=== PATIENT | male | born 1935 | race Caucasian/White ===

== ENCOUNTER 2020-02-07 11:53 | Inpatient (IN) | payer MEDICARE, OTHER ==
[~2020-02-07] VITALS: Ht 162.6 cm; Wt 61.2 kg
[2020-02-07] MEDS ORDERED: IV NS 0.9% 1,000 ML BAG IV ONE (12:30)
[2020-02-07] MEDS ORDERED: NUTR1PAC14 GT (12:30)
[2020-02-07] MEDS ORDERED: ZINC1CAP2 GT (12:30)
[2020-02-07] MEDS ORDERED: ASCO-352 GT (12:30)
[2020-02-07] MEDS ORDERED: BACL10TA GT (12:30)
[2020-02-07] MEDS ORDERED: DONE10TA44 GT (12:31)
[2020-02-07] MEDS ORDERED: BISA10SU11 RC (12:31)
[2020-02-07] MEDS ORDERED: MULT-447 GT (12:31)
[2020-02-07] MEDS ORDERED: MAGN400O6 GT (12:31)
[2020-02-07] MEDS ORDERED: PANT40SU2 GT (12:31)
[2020-02-07] MEDS ORDERED: CLON0.1T GT (12:31)
[2020-02-07] MEDS ORDERED: NUT.237L25 GT (12:31)
[2020-02-07] MEDS ORDERED: SUCR1ORA15 GT (12:31)
[2020-02-07] MEDS ORDERED: ACET650S26 GT ×2 (12:31)
[2020-02-07] MEDS ORDERED: ATOR40TA GT (12:31)
[2020-02-07] MEDS ORDERED: DOXA2TAB GT (12:31)
[2020-02-07] MEDS ORDERED: QUET25TA GT (12:31)
[2020-02-07] MEDS ORDERED: DOCU50LI GT (12:31)
[2020-02-07] MEDS ORDERED: FERR300L GT (12:31)
[2020-02-07] MEDS ORDERED: METO25TA20 GT (12:31)
[2020-02-07] MEDS ORDERED: MELA3TAB41 GT (12:31)
[2020-02-07] MEDS ORDERED: GLUC1KIT SQ (12:31)
[2020-02-07] MEDS ORDERED: HYDR10SY16 GT (12:31)
[2020-02-07] MEDS ORDERED: NA P133E RC (12:31)
[2020-02-07 12:43] LABS: BILIRUBIN,URINE Negative (NEGATIVE); BLOOD, URINE Negative Ery/uL (NEGATIVE); KETONES,URINE Negative (NEGATIVE); LEUKOCYTE ESTERASE ,URINE Negative (NEGATIVE); NITRITE, URINE Negative (NEGATIVE); PH,URINE 8.5 (5.0-8.0); PROTEIN,URINE 30 mg/dl (NEGATIVE); UGLUCOSE Negative (NEGATIVE)
[2020-02-07 12:46] LABS: APPEARANCE,URINE SLIGHTLY HAZY (CLEAR); COLOR,URINE DARK YELLOW (YELLOW)
--- NOTE | 2020-02-07 12:49 | NUR ---
MAUREEN ESTEBAN FROM [facility] FOR WEAKNESS. PT NON VERBAL, OPEN EYES ONLY & WILL MOAN WITH PAINFUL STIMULI. PLACED ON OXYGEN 4L, O2 SAT 95%. PLACED ON COATER SLATE, SR. PT BEEN SEEN & EVAL'D BY DR. OBRIEN. WILL CONT TO MONITOR.
[2020-02-07 12:50] LABS: BASOPHILS # (AUTO) 0.1 /CMM (0.0-0.2); BASOPHILS % (AUTO) 0.5 % (0.0-2.0); EOSINOPHILS % (AUTO) 7.5 % (0.0-6.0); HEMATOCRIT 43 % (39-51); HEMOGLOBIN 13.1 g/dL (13.5-17.5); LYMPHOCYTES # (AUTO) 1.4 /CMM (0.8-4.8); LYMPHOCYTES % (AUTO) 9.7 % (20.0-44.0); MEAN CORPUSCULAR HGB CONC 31 g/dl (31.0-36.0); MEAN CORPUSCULAR VOLUME 99 fL (80-96); MONOCYTES # (AUTO) 0.7 /CMM (0.1-1.30); MONOCYTES % (AUTO) 4.7 % (2.0-12.0); NEUTROPHILS # (AUTO) 11.1 /CMM (1.8-8.9); NEUTROPHILS % (AUTO) 77.6 % (43.0-81.0); PLATELET COUNT (AUTO) 242 /CMM (150-450); WHITE BLOOD COUNT (AUTO) 14.3 K/uL (4.3-11.0)
[2020-02-07 12:55] LABS: BACTERIA,URINE Few /HPF (None Seen); RBC,URINE 0-2 /HPF (0-2); SQUAMOUS EPITHELIAL CELL,UR Few /HPF (None Seen)
[2020-02-07 13:06] LABS: ALANINE AMINOTRANSFERASE 30 U/L (12-78); ALBUMIN 1.6 g/dL (3.4-5.0); ALKALINE PHOSPHATASE 129 U/L (46-116); ASPARTATE AMINOTRANSFERASE 34 U/L (15-37); B-TYPE NATRIURETIC PEPTIDE 1048 PG/ML (0-125); BILIRUBIN,TOTAL 0.4 mg/dL (0.2-1.0); CALCIUM, SERUM 9.4 mg/dL (8.5-10.1); CARBON DIOXIDE 31 mmol/L (21-32); CREATININE 1.2 mg/dL (0.6-1.3); GLUCOSE 293 mg/dL (74-106); POTASSIUM 4.5 mmol/L (3.5-5.1); TOTAL PROTEIN, SERUM 5.9 g/dL (6.4-8.2); UREA NITROGEN, BLOOD 74 mg/dL (7-18)
[2020-02-07 13:10] LABS: CHLORIDE 132 mmol/L (98-107); CREATINE KINASE, TOTAL 761 U/L (39-308); FERRITIN 381 ng/mL (8-388); SODIUM SERUM 168 mmol/L (136-145)
--- NOTE | 2020-02-07 13:12 | NUR ---
PAGED DR. INIGUEZ.
--- NOTE | 2020-02-07 13:13 | NUR ---
CALLED NURSING SUP FOR TELE BED.
--- NOTE | 2020-02-07 13:24 | NUR ---
NURSING SUP GAVE TELE BED 104.
[2020-02-07] MEDS ORDERED: BISACODYL SUPP (10 MG) 10 MG/SUPP.RECT SUPP.RECT RC PRN (13:30)
[2020-02-07] MEDS ORDERED: NA PHOS,M-B/NA PHOS,DI-BA 1 EA ENEMA RC PRN (13:30)
[2020-02-07] MEDS ORDERED: CLONIDINE HCL 0.1 MG TABLET GT PRN (13:30)
[2020-02-07] MEDS ORDERED: TWOCAL HN 1,000 ML LIQUID GT SCH (13:30)
[2020-02-07] MEDS ORDERED: MAGNESIUM HYDROXIDE 30 ML UDC GT PRN (13:30)
--- NOTE | 2020-02-07 13:30 | NUR ---
METAL BONDING CRIB ATTENDANT NOTES RECEIVED PATIENT FROM ER IN STABLE CONDITION. PATIENT NONE VERBAL, CONTRACTED. PATIENT WITH PERIPHERAL IV INTACT PATENT. PATIENT BED BOUND. PATIENT PLACED IN BED. PATIENT ON DROPLET ISOLATION. PATIENT NOTED WITH MULTIPLE WOUNDS. CALL LIGHT WITHIN REACH. BED IN LOW LOCKED POSITION. WILL CONTINUE TO MONITOR. DR. INIGUEZ MADE AWARE OF PATIENTS ARRIVAL. ORDERS PLACED.
--- NOTE | 2020-02-07 13:40 | NUR ---
REPORT GIVEN TO CIERRA SMITH. PT AWAITING TRANS GREGOR TO FLOOR.
--- NOTE | 2020-02-07 13:40 | NUR ---
Narda epperson in [facility] - 02/07/20 at 1342 by GLENNY REPORT GIVEN TO CIERRA ENCISO AWAITING TRANSFER TO [facility].
[2020-02-07] MEDS ORDERED: ENOXAPARIN SODIUM 40 MG/0.4 ML DISP.SYRIN SQ ONE (14:00)
[2020-02-07] MEDS ORDERED: IV D5W 1,000 ML IV PRN (14:00)
[2020-02-07] MEDS ORDERED: DEXTROSE 50%-WATER 50 ML DISP.SYRIN IV PRN (15:00)
[2020-02-07] MEDS ORDERED: ONDANSETRON HCL/PF 4 MG/2 ML VIAL IVP PRN (15:00)
[2020-02-07] MEDS ORDERED: IV D5/ 0.9% NACL 1,000 ML IV PRN (15:30)
[2020-02-07] MEDS ORDERED: ENOXAPARIN SODIUM 30 MG/0.3 ML DISP.SYRIN SQ SCH (16:00)
[2020-02-07] MEDS: CEFTRIAXONE 1 G in IV D5W 50 ML IV SCH ×2 (16:26→16:41)
--- NOTE | 2020-02-07 16:32 | NUR ---
OBTAINED ORDERS FROM DR. GEETHA SCHOFIELD TO CHANGE ADMITTING TO TELEMETRY AND FULL CODE.
[2020-02-07] MEDS ORDERED: FERROUS SULFATE UDC 300 MG/5 ML UDC GT SCH (17:00)
[2020-02-07] MEDS: SUCRALFATE 1 G/10 ML UDC GT SCH (17:25)
[2020-02-07] MEDS: DOCUSATE SODIUM LIQ 100 MG/10 ML UDC GT SCH (17:25)
[2020-02-07] MEDS: ASCORBIC ACID 500 MG TABLET GT SCH (17:26)
[2020-02-07] MEDS: BACLOFEN (10 MG) 10 MG TABLET GT SCH (17:26)
[2020-02-07] MEDS: METOPROLOL TARTRATE 25 MG TABLET GT SCH (17:29)
[2020-02-07 18:06] LABS: BILIRUBIN,DIRECT 0.1 mg/dL (0.0-0.2)
[2020-02-07] MEDS ORDERED: JEVITY 1.2 CAL 1,000 ML BOTTLE GT PRN ×2 (18:30→18:58)
--- NOTE | 2020-02-07 19:03 | NUR ---
RESP THER NOTES PATIENT IN BED RESTING. NO ACUTE CHANGES NOTED DURING SHIFT. ALL MEDICATIONS ADMINISTERED. ALL NEEDS . WILL ENDORSE CARE TO PM SHIFT.
[2020-02-07] MEDS: BLOOD SUGAR DIAGNOSTIC 1 EACH STRIP IN SCH (19:22)
[2020-02-07] MEDS: INSULIN REGULAR, HUMAN 100 UNIT/ML 3 ML VIAL SQ PRN (19:28)
[2020-02-07 20:00] VITALS: BP 107/66
[2020-02-07] MEDS ORDERED: Medication Not On Formulary EA (Melatonin 6 MG) GT SCH (22:00)
[2020-02-07] MEDS: QUETIAPINE FUMARATE 25 MG TABLET GT SCH (23:12)
[2020-02-07] MEDS: ATORVASTATIN 40 MG TABLET GT SCH (23:13)
[2020-02-08] VITALS (7 sets, daily range): BP systolic 91–130; BP diastolic 34–74
[2020-02-08] MEDS: INSULIN REGULAR, HUMAN 100 UNIT/ML 3 ML VIAL SQ PRN ×4 (00:48→17:35)
[2020-02-08] MEDS: BLOOD SUGAR DIAGNOSTIC 1 EACH STRIP IN SCH ×4 (00:59→17:34)
--- NOTE | 2020-02-08 06:02 | NUR ---
KYE/RN PATIENT APPEAR SLEEPING, COMFORTABLE, NO DISTRESS NOTED, HOB ELEVATED, GTUBE FEEDING INFUSING, SLEPT WELL THE WHOLE SHIFT, ALL NEEDS ATTENDED AT THIS TIME, WILL CONTINUE TO MONITOR.
[2020-02-08 07:32] LABS: BASOPHILS # (AUTO) 0.1 /CMM (0.0-0.2); BASOPHILS % (AUTO) 0.4 % (0.0-2.0); EOSINOPHILS % (AUTO) 3.2 % (0.0-6.0); HEMATOCRIT 38 % (39-51); HEMOGLOBIN 11.6 g/dL (13.5-17.5); LYMPHOCYTES # (AUTO) 1.8 /CMM (0.8-4.8); LYMPHOCYTES % (AUTO) 10.8 % (20.0-44.0); MEAN CORPUSCULAR HGB CONC 31 g/dl (31.0-36.0); MEAN CORPUSCULAR VOLUME 101 fL (80-96); MONOCYTES # (AUTO) 0.8 /CMM (0.1-1.30); MONOCYTES % (AUTO) 4.7 % (2.0-12.0); NEUTROPHILS # (AUTO) 13.4 /CMM (1.8-8.9); NEUTROPHILS % (AUTO) 80.9 % (43.0-81.0); PLATELET COUNT (AUTO) 223 /CMM (150-450); RED BLOOD CELL COUNT(AUTO) 3.74 MIL/uL (4.5-6.0); WHITE BLOOD COUNT (AUTO) 16.6 K/uL (4.3-11.0)
--- NOTE | 2020-02-08 07:45 | NUR ---
OXYACETYLENE TORCH OPERATOR NOTES RECEIVED PATIENT A/OX 0 NONVERBAL, UNABLE TO OPEN EYES. WITH LOW BLOOD PRESSURE. PATIENT ON AMIODARONE DRIP 16.6. PER MORNING SHIFT NURSE MARIA M, AMIODARONE STARTED AT 1547. AMIODARONE WAS NOT AVAILABLE IN [place]. NO GT SIDE RESIDUAL NOTED. Addendum: 02/09/20 at 0232 by MARINA BARAKAT RN WRONG TIME
[2020-02-08 07:49] LABS: CALCIUM, SERUM 8.5 mg/dL (8.5-10.1); CREATININE 1.3 mg/dL (0.6-1.3); POTASSIUM 3.9 mmol/L (3.5-5.1)
[2020-02-08] MEDS ORDERED: AMIODARONE 900 MG in IV D5W 500 ML IV PRN (08:00)
[2020-02-08] MEDS ORDERED: AMIODARONE 150 MG in IV D5W 100 ML IV ONE (08:00)
--- NOTE | 2020-02-08 08:00 | NUR ---
RN OPENING NOTE: Patient received in bed. Awake and responsive to touch and pain. On cont. o2 via nc @ 4lpm with saturation of 92% noted. Isolation in place to R/O COVID. Tele monitor showing Uncontrolled A. Fib in the 130s with orders to start Amiodaraone drip. Awaiting for medication to be delivered. No pain noted on pain. Reyes catheter draiing yellow willie urine. Gtube patent and in place with current feeding being tolerated. IV site clean, dry, patent and intact with infusion of D5NS infusing at 75mls/hr and being tolerated well. Call light in reach. Bed locked, low and at semi-marcelo's position. Side rails up x3. Safety ensured and observed. Will continue to monitor.
[2020-02-08] MEDS: ENOXAPARIN SODIUM 40 MG/0.4 ML DISP.SYRIN SQ SCH (09:00)
[2020-02-08] MEDS ORDERED: AMIODARONE 450 MG in IV D5W 250 ML IV PRN (09:00)
[2020-02-08] MEDS: ACETAMINOPHEN 650 MG/20.3 ML UDC GT SCH (09:34)
[2020-02-08] MEDS: ZINC SULFATE 220 MG CAPSULE GT SCH (09:35)
[2020-02-08] MEDS: BACLOFEN (10 MG) 10 MG TABLET GT SCH ×2 (09:35→17:33)
[2020-02-08] MEDS: SUCRALFATE 1 G/10 ML UDC GT SCH ×2 (09:35→17:32)
[2020-02-08] MEDS: PANTOPRAZOLE 40 MG VIAL IV SCH (09:35)
[2020-02-08] MEDS: METOPROLOL TARTRATE 25 MG TABLET GT SCH ×2 (09:36→17:34)
--- NOTE | 2020-02-08 09:47 | NUR ---
RN NOTE: AMIODARONE DRIP STARTED AT 33.3MLS/HR BUT UNABLE TO ADMINISTER IN THE EMAR. PHARMACY INFORMED OF THE SITUATION AND THEY ARE AWARE.
[2020-02-08] MEDS: IV 1/2NS 1000 ML 1,000 ML IV PRN ×2 (10:44→23:00)
[2020-02-08 10:51] LABS: MAGNESIUM 2.6 mg/dL (1.8-2.4); THYROID STIMULATING HORMONE 3.23 uIU/mL (0.358-3.74)
[2020-02-08 11:54] LABS: ABG BASE EXCESS -1.2 mmol/L; ABG OXYGEN SATURATION 97.3 % (92.0-98.5); ABG PCO2 27.6 mmHg (35.0-45.0); ABG PH 7.498 (7.350-7.450); ABG PO2 109.5 mmHg (75.0-100.0); AaDO2 115.2 mmHg; COHb 0.3 % (0.5-1.5); MetHb 0.4 % (0.0-1.5); O2Hb 96.6 % (94.0-97.0); SITE, ABG Right Radial
--- NOTE | 2020-02-08 12:30 | NUR ---
RN note: Anthony Truong DNP was informed earlier on shift about patient Blood glucose result via blood draw of 437 and is aware. IV infusion changed to D51/2NS @75mls/hr. Amiodarone drip currently running at 33.3mls/hr for 6hr and the rate to be changed on 1547 to 16.6mls/hr. Heart rate currently at 88bpm with sinus rhythm noted on monitor and Dr. Schwartz is aware. GTF order changed to Glucerna 1.2 @60mls/hr. Report given to SARAH Sahu for BATOOL.
[2020-02-08 13:04] LABS: CALCIUM, SERUM 8.5 mg/dL (8.5-10.1); CARBON DIOXIDE 25 mmol/L (21-32); CREATININE 1.2 mg/dL (0.6-1.3); POTASSIUM 3.5 mmol/L (3.5-5.1); UREA NITROGEN, BLOOD 63 mg/dL (7-18)
[2020-02-08 13:08] LABS: SODIUM SERUM 167 mmol/L (136-145)
[2020-02-08 13:09] LABS: CHLORIDE 130 mmol/L (98-107); GLUCOSE 411 mg/dL (74-106)
[2020-02-08] MEDS: CEFEPIME 2 GM in IV D5W 100 ML IV SCH (13:25)
--- NOTE | 2020-02-08 15:09 | NUR ---
Patient noticed lactic acid 2.9 and BS 437 in this morning from Lab. Informed Dr. Yusuf
[2020-02-08] MEDS: DOCUSATE SODIUM LIQ 100 MG/10 ML UDC GT SCH (17:32)
[2020-02-08] MEDS: ASCORBIC ACID 500 MG TABLET GT SCH (17:32)
[2020-02-08] MEDS: GLUCERNA 1.2 1,000 ML BOTTLE GT PRN (17:36)
--- NOTE | 2020-02-08 18:30 | NUR ---
Tele/RN Closing note Patient in bed comfortably, no c/o pain or discomfort at this time. Pt is on Amiodarone drip, decreased drip rate 16.6 ml/hr from 33.3ml/hr and keep stable HR. Oxygen at 10LPM with simple mask, O2sat 93-95%, skin is war to touch, kept clean/dry, intact IV site, provided skin care. Temperature 98.3. Keep low bed position with locked wheel and elevated head of bed for secure airway, call light within reach, will endorse fast food shift lead.
--- NOTE | 2020-02-08 19:45 | NUR ---
CUSTOMER CARE ASSISTANT NOTES RECEIVED PATIENT A/OX 0 NONVERBAL, UNABLE TO OPEN EYES. WITH LOW BLOOD PRESSURE. PATIENT ON AMIODARONE DRIP 16.6. PER MORNING SHIFT NURSE MARIA M, AMIODARONE STARTED AT 1547. AMIODARONE WAS NOT AVAILABLE IN [place]. NO GT SIDE RESIDUAL NOTED.
--- NOTE | 2020-02-08 20:37 | NUR ---
MICROSOFT DEVELOPER NOTES PATIENT BP 113/[address] AVILA ABOUT THE FINDINGS AND NO ORDERS GIVEN. ALSO INFORMED ABOUT THE CANCELLED LAB AND SHE ORDERED BMP IN THE MORNING.
[2020-02-08] MEDS ORDERED: AMIODARONE 150 MG/3 ML VIAL IV ONE ×2 (21:23→21:26)
[2020-02-08] MEDS: ATORVASTATIN 40 MG TABLET GT SCH (22:15)
[2020-02-08] MEDS: QUETIAPINE FUMARATE 25 MG TABLET GT SCH (22:15)
--- NOTE | 2020-02-08 22:27 | NUR ---
SYSTEMS PROGRAMMER NOTES AMIODARONE REMOVED 1 VIAL FROM KYE AND OTHERS WERE NOT AVAILABLE. 2 MORE VIAL OBTAINED FROM ICU BY ED CHARGE NURSE. MIXED 3 VIALS TO HAVE 450MG IN 250 D5.
[2020-02-09] VITALS: BP 93/36
[2020-02-09] MEDS: BLOOD SUGAR DIAGNOSTIC 1 EACH STRIP IN SCH ×4 (00:10→17:05)
[2020-02-09] MEDS: INSULIN REGULAR, HUMAN 100 UNIT/ML 3 ML VIAL SQ PRN ×5 (00:21→23:36)
[2020-02-09 04:00] VITALS: BP 96/34
[2020-02-09 07:21] LABS: BASOPHILS % (AUTO) 0.2 % (0.0-2.0); EOSINOPHILS % (AUTO) 0.6 % (0.0-6.0); HEMATOCRIT 35 % (39-51); HEMOGLOBIN 10.6 g/dL (13.5-17.5); LYMPHOCYTES # (AUTO) 1.3 /CMM (0.8-4.8); LYMPHOCYTES % (AUTO) 9.7 % (20.0-44.0); MEAN CORPUSCULAR HGB CONC 31 g/dl (31.0-36.0); MEAN CORPUSCULAR VOLUME 100 fL (80-96); MONOCYTES # (AUTO) 0.5 /CMM (0.1-1.30); MONOCYTES % (AUTO) 3.3 % (2.0-12.0); NEUTROPHILS # (AUTO) 11.9 /CMM (1.8-8.9); NEUTROPHILS % (AUTO) 86.2 % (43.0-81.0); PLATELET COUNT (AUTO) 180 /CMM (150-450); RED BLOOD CELL COUNT(AUTO) 3.45 MIL/uL (4.5-6.0); WHITE BLOOD COUNT (AUTO) 13.8 K/uL (4.3-11.0)
--- NOTE | 2020-02-09 07:37 | NUR ---
DENTAL ASSOCIATE NOTES PATIENT IN BED COMFORTABLE, NO SOB OR DISCOMFORT NOTED, ALL NEEDS ATTENDED. NO RESIDUAL NOTED FROM NG TUBE. REPORT GIVEN TO TOP COLLAR MAKER NURSE.
[2020-02-09 08:00] VITALS: BP 128/46
--- NOTE | 2020-02-09 08:00 | NUR ---
RN NOTES RECEIVED PATIENT IN THE BED ISOLATION, NONVERBAL, FACE MASK 10L, NO SOB NOTES; ABG DONE,TELE SR-66 PVC GETTING AMIODARONE 16.6 ML/HR ON RIGHT AC AREA INTACT. PER GASKET FORMER KEEP MASK 10 AT THIS TIME, LABS RETAKEN, ADMINISTERED SCHEDULED MEDICATION VIA GT INTACT, PATIENT GETTING GLUCERNA GTF 60 ML/HR INTACT,RESIDUAL, AND PLACEMENT CHECKED, INFUSING 1/2 NS AT RIGHT AC AREA 75 ML/HR, F/C DRAINING LIGHT YELLOW OUTPUT, PATENT HAS SKIN TEAL SACRAL, AND SCROTAL AREA APPLIED Z-GUARD, AND COVERED WITH MEPILEX, SKIN IS DRY, ALSO RIGHT HIP APPLIED MEDIPLEX, ASSIST TURN AND REPOSITION Q 2 HR, PATIENT TOTAL CARE. PATIENT HAS EDEMA BILATERAL UPPER ARMS, AND RIGHT LOWER LEG, LEFT LEFT LEG AKA. KEEP HOB ELEVATED FOR ASPIRATION PRECAUTION, V/S STABLE. CONTINUED MONITORING.
[2020-02-09 09:01] LABS: BILIRUBIN,TOTAL 0.5 mg/dL (0.2-1.0); CALCIUM, SERUM 7.8 mg/dL (8.5-10.1); CREATININE 1.2 mg/dL (0.6-1.3); MAGNESIUM 2.3 mg/dL (1.8-2.4); PHOSPHORUS 4.2 mg/dL (2.5-4.9); POTASSIUM 4.1 mmol/L (3.5-5.1)
[2020-02-09 09:05] LABS: ALBUMIN 1.2 g/dL (3.4-5.0)
--- NOTE | 2020-02-09 09:33 | NUR ---
lactic acid of 3.7 left message to to waiting for retuning call back was 4.4 yesterday
[2020-02-09 09:34] LABS: ABG BASE EXCESS -2.9 mmol/L; ABG OXYGEN SATURATION 96.4 % (92.0-98.5); ABG PCO2 28.8 mmHg (35.0-45.0); ABG PH 7.459 (7.350-7.450); AaDO2 232.1 mmHg; COHb 0.3 % (0.5-1.5); MetHb 0.1 % (0.0-1.5); SITE, ABG Right Radial; VENT MODE, BG SM 10L
[2020-02-09] MEDS: ZINC SULFATE 220 MG CAPSULE GT SCH (09:38)
[2020-02-09] MEDS: SUCRALFATE 1 G/10 ML UDC GT SCH ×2 (09:38→16:58)
[2020-02-09] MEDS: PANTOPRAZOLE 40 MG VIAL IV SCH (09:38)
[2020-02-09] MEDS: ACETAMINOPHEN 650 MG/20.3 ML UDC GT SCH (09:38)
[2020-02-09] MEDS: BACLOFEN (10 MG) 10 MG TABLET GT SCH ×2 (09:39→16:58)
[2020-02-09] MEDS: METOPROLOL TARTRATE 25 MG TABLET GT SCH ×2 (09:39→16:59)
[2020-02-09] MEDS: ENOXAPARIN SODIUM 40 MG/0.4 ML DISP.SYRIN SQ SCH (09:40)
--- NOTE | 2020-02-09 09:42 | NUR ---
G RESUTS results given to Anthony Odonnell , Stated that OK
[2020-02-09] MEDS ORDERED: IV NS 0.9% 500 ML IV ONE (10:00)
[2020-02-09] MEDS: methylPREDNISolone SOD SUCC 125 MG/2ML VIAL IV SCH (10:08)
--- NOTE | 2020-02-09 10:09 | NUR ---
RN NOTES ADMINISTERING NS 500 ML/HR BOLUS.
[2020-02-09 12:00] VITALS: BP_SYST 129; BP_DIAS 44; BP_DIAS 46
[2020-02-09] MEDS: CEFEPIME 2 GM in IV D5W 100 ML IV SCH (12:20)
--- NOTE | 2020-02-09 12:35 | NUR ---
rn notes bs-372 mg/dl coverage given, patient Glucerna 1.2 ml/hr intact, keep hob elevated for aspiration precaution, ct wo contrast done, assist patient turn and reposition q 2 hr, call light within to reach, infusing maxipime 100 ml/hr intact on right ac area intact. continued monitoring.
--- NOTE | 2020-02-09 13:46 | NUR ---
LACTIC ACID 2.5 was notified no further orders obtained
[2020-02-09 16:00] VITALS: BP 108/44
[2020-02-09] MEDS: APIXABAN 5 MG TABLET PO SCH (17:01)
[2020-02-09] MEDS: ASCORBIC ACID 500 MG TABLET GT SCH (17:05)
[2020-02-09] MEDS: DOCUSATE SODIUM LIQ 100 MG/10 ML UDC GT SCH (17:05)
[2020-02-09] MEDS: IV 1/2NS 1000 ML 1,000 ML IV PRN (17:17)
[2020-02-09] MEDS: GLUCERNA 1.2 1,000 ML BOTTLE GT PRN (17:17)
[2020-02-09 18:26] LABS: CALCIUM, SERUM 8.1 mg/dL (8.5-10.1); CREATININE 1.2 mg/dL (0.6-1.3); POTASSIUM 3.9 mmol/L (3.5-5.1)
--- NOTE | 2020-02-09 18:30 | NUR ---
RN NOTES BS-397 MG/DL COVERAGE GIVEN, INFUSING 1/2 NS AT 75 ML/HR ON RIGHT FA INTACT, PATIENT TOLERATED GLUCERNA WELL, KEEP HOB ELEVATED FOR ASPIRATION PRECAUTION, ASSISTTURN AND REPOSITION 2 HR. HELD BP MEDICATION BP 108/44, P-68. ADMINISTERED SCHEDULED MEDICATION VIA GTT. ASSIST TURN AND REPOSITION Q 2 HR. DONIS CATHETER DRAINING LIGHT YELLOW OUTPUT. CALL LIGHT WITHIN TO REACH. ENDORSED ONCOMING NURSE FOLLOW PLAN OF CARE.
--- NOTE | 2020-02-09 18:39 | NUR ---
notified to CAT TENDER RE; MRSA Nares positive and orders obtained and will follows orders
[2020-02-09 20:00] VITALS: BP 114/46
[2020-02-09] MEDS: MUPIROCIN OINT 2% 22 GM TUBE SCH (20:41)
[2020-02-09] MEDS: AMIODARONE HCL 200 MG TABLET PO SCH (20:43)
[2020-02-09] MEDS: ATORVASTATIN 40 MG TABLET GT SCH (21:01)
[2020-02-09] MEDS: QUETIAPINE FUMARATE 25 MG TABLET GT SCH (21:01)
[2020-02-10] VITALS: BP 124/54
[2020-02-10] MEDS: BLOOD SUGAR DIAGNOSTIC 1 EACH STRIP IN SCH ×4 (00:52→18:33)
[2020-02-10 04:00] VITALS: BP 123/41
[2020-02-10] MEDS ORDERED: DEXTROSE 50%-WATER 50 ML DISP.SYRIN IV PRN (04:30)
[2020-02-10] MEDS: INSULIN REGULAR, HUMAN 100 UNIT/ML 3 ML VIAL SQ PRN ×3 (05:19→18:35)
[2020-02-10 06:17] LABS: BASOPHILS # (AUTO) 0.1 /CMM (0.0-0.2); BASOPHILS % (AUTO) 0.4 % (0.0-2.0); HEMATOCRIT 31 % (39-51); HEMOGLOBIN 9.4 g/dL (13.5-17.5); LYMPHOCYTES # (AUTO) 0.6 /CMM (0.8-4.8); MEAN CORPUSCULAR HGB CONC 31 g/dl (31.0-36.0); MEAN CORPUSCULAR VOLUME 100 fL (80-96); MONOCYTES # (AUTO) 0.4 /CMM (0.1-1.30); MONOCYTES % (AUTO) 2.8 % (2.0-12.0); NEUTROPHILS # (AUTO) 13.8 /CMM (1.8-8.9); NEUTROPHILS % (AUTO) 92.8 % (43.0-81.0); PLATELET COUNT (AUTO) 157 /CMM (150-450); RED BLOOD CELL COUNT(AUTO) 3.05 MIL/uL (4.5-6.0); WHITE BLOOD COUNT (AUTO) 14.8 K/uL (4.3-11.0)
[2020-02-10 06:40] LABS: CALCIUM, SERUM 7.6 mg/dL (8.5-10.1); POTASSIUM 3.9 mmol/L (3.5-5.1)
--- NOTE | 2020-02-10 06:52 | NUR ---
RN NOTE RECEIVED ALERT FOR CRITICAL LAB VALUES: SODIUM 158. CHLORIDE 126. AND GLUCOSE 411. DR. GALVEZ MADE AWARE. MD WILL ENTER NEW ORDERS.
--- NOTE | 2020-02-10 07:45 | NUR ---
WEDGER OPENING NOTE Received patient asleep in bed HOB elevated no signs of distress. Appears calm and relaxed. On simple mask 10L tolerating well. Patient is non verbal Tele reading SR 65 no sign of pain or discomfort. On FC draining clear yellow urine. Noted with L AKA stump dressing intact. Pt has GT running Glucerna 1.2 @ 60ml/hr. Has L wrist 24# peripheral IV flushed well. Safety measures reinforced. Call light within reach. Bed locked and on lowest position. Siderails up x2. Will cont to monitor.
[2020-02-10 08:00] VITALS: BP 133/72
[2020-02-10 08:29] LABS: CREATININE, URINE 54.9 MG/DL (30.0-125.0); URINE TOTAL PROTEIN 80.6 mg/dL (0-11.9)
[2020-02-10 08:49] LABS: APPEARANCE,URINE CLEAR (CLEAR); BILIRUBIN,URINE NEGATIVE (NEGATIVE); BLOOD, URINE MODERATE Ery/uL (NEGATIVE); COLOR,URINE YELLOW (YELLOW); KETONES,URINE NEGATIVE (NEGATIVE); LEUKOCYTE ESTERASE ,URINE NEGATIVE (NEGATIVE); NITRITE, URINE NEGATIVE (NEGATIVE); PROTEIN,URINE 30 mg/dl (NEGATIVE); UGLUCOSE >=1000 mg/dL (NEGATIVE); UROBILINOGEN,URINE 0.2 EU/dL (0.2)
[2020-02-10] MEDS: ACETAMINOPHEN 650 MG/20.3 ML UDC GT SCH (08:56)
[2020-02-10] MEDS: PANTOPRAZOLE 40 MG VIAL IV SCH (08:56)
[2020-02-10] MEDS: SUCRALFATE 1 G/10 ML UDC GT SCH ×2 (08:56→16:56)
[2020-02-10] MEDS: AMIODARONE HCL 200 MG TABLET PO SCH ×2 (08:56→21:25)
[2020-02-10] MEDS: methylPREDNISolone SOD SUCC 125 MG/2ML VIAL IV SCH (08:56)
[2020-02-10] MEDS: ZINC SULFATE 220 MG CAPSULE GT SCH (08:57)
[2020-02-10] MEDS: METOPROLOL TARTRATE 25 MG TABLET GT SCH ×2 (08:57→16:58)
[2020-02-10] MEDS: BACLOFEN (10 MG) 10 MG TABLET GT SCH ×2 (08:58→16:58)
[2020-02-10] MEDS: APIXABAN 5 MG TABLET PO SCH ×2 (08:58→16:59)
[2020-02-10] MEDS: LINAGLIPTIN 5 MG TABLET PO SCH (08:58)
[2020-02-10] MEDS: MUPIROCIN OINT 2% 22 GM TUBE SCH ×2 (08:59→21:26)
[2020-02-10 09:13] LABS: ABG BASE EXCESS -1.2 mmol/L; ABG OXYGEN SATURATION 99.3 % (92.0-98.5); ABG PCO2 29.7 mmHg (35.0-45.0); ABG PH 7.479 (7.350-7.450); ABG PO2 195.1 mmHg (75.0-100.0); COHb 0.3 % (0.5-1.5); SITE, ABG Right Radial; VENT MODE, BG SM 10L
[2020-02-10 09:33] LABS: BACTERIA,URINE Rare /HPF (None Seen); SQUAMOUS EPITHELIAL CELL,UR Few /HPF (None Seen)
[2020-02-10 09:34] LABS: CALCIUM OXALATE CRYSTALS,UR Rare /HPF (None Seen)
--- NOTE | 2020-02-10 09:58 | NUR ---
NITRIC ACID CONCENTRATOR OPERATOR NOTE Received ABG results. Dr. Wesley ordered to decrease oxygen from 10L to 6L. Noted and carried out.
[2020-02-10 11:24] LABS: EOSINOPHIL,URINE None Seen
[2020-02-10 12:00] VITALS: BP 128/76
[2020-02-10] MEDS: CEFEPIME 2 GM in IV D5W 100 ML IV SCH (12:14)
[2020-02-10 16:00] VITALS: BP 124/80
--- NOTE | 2020-02-10 17:00 | NUR ---
AUTO SERVICE MECHANIC NOTE held Lopressor HR 57.
[2020-02-10] MEDS: ASCORBIC ACID 500 MG TABLET GT SCH (17:03)
[2020-02-10] MEDS: DOCUSATE SODIUM LIQ 100 MG/10 ML UDC GT SCH (17:03)
--- NOTE | 2020-02-10 18:53 | NUR ---
REEL SYSTEM OPERATOR CLOSING NOTE Pt in bed asleep appears calm and relaxed. On NC 6L o2 sat at 98% tolerating well. All due meds given. Vital signs within normal limits. No signs of pain or discomfort. Kept patient clean and dry. Safety measures reinforced. Call light within reach. Bed locked and on lowest position. Siderails up x2. Will endorse to shift leader nurse for phuc..
[2020-02-10 20:00] VITALS: BP 125/41
[2020-02-10] MEDS: ATORVASTATIN 40 MG TABLET GT SCH (21:24)
[2020-02-10] MEDS: QUETIAPINE FUMARATE 25 MG TABLET GT SCH (21:24)
[2020-02-11] VITALS: BP 146/69
[2020-02-11] MEDS: BLOOD SUGAR DIAGNOSTIC 1 EACH STRIP IN SCH ×5 (00:40→23:36)
[2020-02-11] MEDS: INSULIN REGULAR, HUMAN 100 UNIT/ML 3 ML VIAL SQ PRN ×5 (00:41→23:38)
[2020-02-11 04:00] VITALS: BP 138/69
[2020-02-11 06:23] LABS: URINE SODIUM, RANDOM 10 mmol/l (40-220)
--- NOTE | 2020-02-11 06:50 | NUR ---
PEDIATRIC REGISTERED NURSE CLOSING NOTE, patient asleep at this time, On NC 6L at he beginning of the shift, around 2300 patient became desaturated, placed patient on non rebreather mask and after that patient with 100% o2 sat level on NRM, rachel aware, cont on Tele monitor nsr with hr 70s during the night, Safety measures reinforced, Call light within reach, Bed locked and lowest position, Siderails up x2, will endorse continuity of care to oncoming nurse.
[2020-02-11 07:26] LABS: CALCIUM, SERUM 8.1 mg/dL (8.5-10.1); CREATININE 1.1 mg/dL (0.6-1.3); MAGNESIUM 2.7 mg/dL (1.8-2.4); PHOSPHORUS 3.5 mg/dL (2.5-4.9); POTASSIUM 4.2 mmol/L (3.5-5.1)
[2020-02-11 08:00] VITALS: BP_SYST 137; BP_SYST 138; BP_DIAS 40; BP_DIAS 69
--- NOTE | 2020-02-11 08:00 | NUR ---
telephone sales agent note received patient in bed , wake with confusion, on nonrebreather mask at thins time , sat 100% ,on tele monitor hr 78 , on g tube feeding as ordered, no residual noted at this time , keep hob elevated at all time , on tele hr 80 noted both arms with edema, keep elevated at all time , bed in lowest and locked position, will cont to monitor
[2020-02-11] MEDS: AMIODARONE HCL 200 MG TABLET PO SCH ×2 (09:15→21:26)
[2020-02-11] MEDS: LINAGLIPTIN 5 MG TABLET PO SCH (09:15)
[2020-02-11] MEDS: APIXABAN 5 MG TABLET PO SCH ×2 (09:16→16:25)
[2020-02-11] MEDS: BACLOFEN (10 MG) 10 MG TABLET GT SCH ×2 (09:16→16:25)
[2020-02-11] MEDS: ACETAMINOPHEN 650 MG/20.3 ML UDC GT SCH (09:16)
[2020-02-11] MEDS: ZINC SULFATE 220 MG CAPSULE GT SCH (09:16)
[2020-02-11] MEDS: methylPREDNISolone SOD SUCC 125 MG/2ML VIAL IV SCH (09:16)
[2020-02-11] MEDS: PANTOPRAZOLE 40 MG VIAL IV SCH (09:17)
[2020-02-11] MEDS: SUCRALFATE 1 G/10 ML UDC GT SCH ×2 (09:17→16:25)
[2020-02-11] MEDS: METOPROLOL TARTRATE 25 MG TABLET GT SCH ×2 (09:19→16:25)
[2020-02-11] MEDS: MUPIROCIN OINT 2% 22 GM TUBE SCH ×2 (09:20→21:43)
--- NOTE | 2020-02-11 09:24 | NUR ---
WOUND CARE CONSULT: REVIEWED CHART, NURSING DOCUMENTATION AND PHOTOS WHICH SHOW MULTIPLE WOUNDS PRESENT ON ADMISSION. RECOMMEND SURGICAL CONSULT. DR CONNOR NOTIFIED OF CONSULT REQUEST. RECOMMENDATIONS MADE FOR SKIN PROTECTION. DISCUSSED WITH NURSING STAFF. FIRST STEP LOW AIRLOSS MATTRESS ORDERED. WILL SEE PRN. IN AGREEMENT WITH PLAN OF CARE.
[2020-02-11] MEDS: Z GUARD REMEDY 2 OZ OINT TP SCH (09:31)
--- NOTE | 2020-02-11 09:32 | NUR ---
telemarketing manager note spoke with dr hassan and dr bates notified that danitza Jaquez ordered free water 300 ml via g tube , and dr hassan ordered abg on 6l nc will f\u aware that both arms swollen
[2020-02-11 10:03] LABS: OSMOLALITY,URINE 875 mOS/kg (340-1090)
[2020-02-11 10:25] LABS: ABG BASE EXCESS -1.7 mmol/L; ABG OXYGEN SATURATION 99.6 % (92.0-98.5); ABG PH 7.467 (7.350-7.450); ABG PO2 285.8 mmHg (75.0-100.0); AaDO2 325.2 mmHg; COHb 0.3 % (0.5-1.5); MetHb 0.1 % (0.0-1.5); O2Hb 99.2 % (94.0-97.0); SITE, ABG Left Brachial; VENT MODE, BG NON REBREATHER 15L
[2020-02-11 10:30] LABS: THYROID STIMULATING HORMONE 7.441 uIU/mL (0.358-3.74); URIC ACID 4.9 mg/dL (2.6-7.2)
--- NOTE | 2020-02-11 10:51 | NUR ---
MICROPHONE OPERATOR NOTE ABG DONE DR JOHNSON AWARE OF RESULT OK TO PLACE ON 6L NC, WILL MONITOR FOR SATURATION Addendum: 02/11/20 at 1054 by VI MEDINA RN SAT 97% AT THIS TIME
--- NOTE | 2020-02-11 11:18 | NUR ---
LITERATURE TEACHER NOTE CHEST XRAY DONE ,WILL MONITOR
[2020-02-11 12:00] VITALS: BP 137/49
[2020-02-11] MEDS: CEFEPIME 2 GM in IV D5W 100 ML IV SCH (12:36)
[2020-02-11] MEDS: GLUCERNA 1.2 1,000 ML BOTTLE GT PRN (12:36)
--- NOTE | 2020-02-11 13:14 | NUR ---
MEMBER SERVICES COORDINATOR NOTE PER DR INIGUEZ OK TO INSERT MID LINE ALSO NOTIFIED MARIBEL G TUBE SITE SEVERE LEAKING OK TO HOLD G TUBE FEEDING AT THIS TIME
--- NOTE | 2020-02-11 14:29 | NUR ---
porcelain turnerdemetrius michelle will be provided Addendum: 02/11/20 at 1547 by VI MEDINA RN called to central supply ,rubina gilbert not [employer] yet, will be delivered soon
[2020-02-11 16:00] VITALS: BP 142/54
--- NOTE | 2020-02-11 16:06 | NUR ---
telemetry tech note picc line nurse at bedside rt upper arm midline inserted nahum 18 ,will monitor
[2020-02-11] MEDS: Z GUARD REMEDY 2 OZ OINT TP PRN (16:59)
[2020-02-11] MEDS: DOCUSATE SODIUM LIQ 100 MG/10 ML UDC GT SCH (17:19)
[2020-02-11] MEDS: ASCORBIC ACID 500 MG TABLET GT SCH (17:19)
--- NOTE | 2020-02-11 19:03 | NUR ---
EQUAL OPPORTUNITY ASSISTANT RN NOTES PT IS RESTING IN BED COMFORTABLE. NOT IN DISTRESS. WILL CONTINUE TO MONITOR. PT WILL ENDORSIVE CARE TO NIGHTSHIFTS FOR BATOOL.
--- NOTE | 2020-02-11 19:48 | NUR ---
MS RN NOTES PATIENT RECEIVED RESTING IN BED, NON VERBAL. ON 6L OF O2 WITH BREATHING EVEN AND UNLABORED, NO SOB NOTED. NO SIGNS OF ACUTE DISTRESS, NO COMPLAINTS OF PAIN OR DISCOMFORT- NO FACIAL GRIMACING NOTED. DONIS CATHETER NOTED AND IN PLACE. GTUBE FEEDING ON HOLD DUE TO LEAKING. IV ON LFA #20 S/L AND TK MIDLINE #18. SAFETY PRECAUTIONS IN PLACE WITH BED IN LOWEST POSITION, CALL LIGHT WITHIN REACH, BREAKS ON, SIDE RAILS UP. WILL CONTINUE TO MONITOR THROUGHOUT THE SHIFT.
[2020-02-11 20:00] VITALS: BP 133/44
[2020-02-11] MEDS: ATORVASTATIN 40 MG TABLET GT SCH (21:26)
[2020-02-11] MEDS: QUETIAPINE FUMARATE 25 MG TABLET GT SCH (21:26)
[2020-02-11] MEDS: CLOTRIMAZOLE 1% 15 GM TUBE TP SCH (22:00)
[2020-02-11] MEDS: DAKINS QUARTER STRENGTH (0.125%) 480 ML BOTTLE TOP SCH (22:00)
--- NOTE | 2020-02-11 22:40 | NUR ---
FELLING MACHINE OPERATOR NOTES DID ADMINISTER WOUND CARE MEDICATIONS LOTRIMIN AND ALONDRA, NO AT PATIENT BEDSIDE OR CASETTE. WILL FOLLOW UP WITH PHARMACY IN AM.
[2020-02-12] VITALS: BP 116/45
[2020-02-12 04:00] VITALS: BP 112/39
[2020-02-12] MEDS: BLOOD SUGAR DIAGNOSTIC 1 EACH STRIP IN SCH ×3 (05:38→17:38)
[2020-02-12] MEDS: INSULIN REGULAR, HUMAN 100 UNIT/ML 3 ML VIAL SQ PRN ×3 (05:39→17:38)
[2020-02-12 06:42] LABS: BASOPHILS % (AUTO) 0.2 % (0.0-2.0); EOSINOPHILS % (AUTO) 0.5 % (0.0-6.0); HEMATOCRIT 32 % (39-51); LYMPHOCYTES # (AUTO) 1.1 /CMM (0.8-4.8); LYMPHOCYTES % (AUTO) 8.3 % (20.0-44.0); MEAN CORPUSCULAR HGB CONC 32 g/dl (31.0-36.0); MEAN CORPUSCULAR VOLUME 97 fL (80-96); MONOCYTES # (AUTO) 0.4 /CMM (0.1-1.30); MONOCYTES % (AUTO) 3.5 % (2.0-12.0); NEUTROPHILS # (AUTO) 11.2 /CMM (1.8-8.9); NEUTROPHILS % (AUTO) 87.5 % (43.0-81.0); PLATELET COUNT (AUTO) 210 /CMM (150-450); RED BLOOD CELL COUNT(AUTO) 3.28 MIL/uL (4.5-6.0); WHITE BLOOD COUNT (AUTO) 12.8 K/uL (4.3-11.0)
--- NOTE | 2020-02-12 06:45 | NUR ---
ELIZABETH RN CLOSING NOTES PATIENT RESTING IN BED, NON VERBAL. ON 5L OF O2 WITH BREATHING EVEN AND UNLABORED, NO SOB NOTED. NO SIGNS OF ACUTE DISTRESS, NO COMPLAINTS OF PAIN OR DISCOMFORT- NO FACIAL GRIMACING NOTED. DONIS CATHETER NOTED AND IN PLACE. GTUBE FEEDING GLUCERNA 60 ML/HR. IV ON LFA #20 S/L AND TK MIDLINE #18. SAFETY PRECAUTIONS IN PLACE WITH BED IN LOWEST POSITION, CALL LIGHT WITHIN REACH, BREAKS ON, SIDE RAILS UP. ALL NEEDS ATTENDED TO, PATIENT KEPT CLEAN AND DRY. WILL ENDORSE TO ONCOMING SHIFT
[2020-02-12 07:20] LABS: BILIRUBIN,TOTAL 0.4 mg/dL (0.2-1.0); MAGNESIUM 2.5 mg/dL (1.8-2.4); PHOSPHORUS 3.6 mg/dL (2.5-4.9); POTASSIUM 3.9 mmol/L (3.5-5.1)
--- NOTE | 2020-02-12 07:30 | NUR ---
RN opening note: Received patient in bed and awake. Unable to assess orientation. On cont. o2 via nc @ 4lpm with saturation noted @ 98%. Isolation precautions observed for Covid. No pain noted on patient. Tele monitor showing sinus rhythm noted on monitor. IV sites clean, dry, patent and intact. Reyes catheter draining willie yellow urine noted. Gtube patent and in place, feeding being tolerated well. Call light in reach. Bed locked, low and at semi-marcelo's position. Alarm on. Side rails up x3. Safety ensured and observed. Will continue to monitor.
[2020-02-12 07:47] LABS: ALBUMIN 1.1 g/dL (3.4-5.0)
[2020-02-12 08:00] VITALS: BP_SYST 132; BP_DIAS 47; BP_DIAS 62
--- NOTE | 2020-02-12 08:10 | NUR ---
RN NOTE: reported to Dr. Galvin regarding patient's Sodium level of 160 and albumin of 1.1 with no adverse reaction noted on patient. Order for D5W @ 50mls/hr obtained. noted and carried out.
[2020-02-12] MEDS: IV D5W 1,000 ML IV PRN (08:24)
[2020-02-12] MEDS: LINAGLIPTIN 5 MG TABLET PO SCH (08:25)
[2020-02-12] MEDS: ACETAMINOPHEN 650 MG/20.3 ML UDC GT SCH (08:25)
[2020-02-12] MEDS: PANTOPRAZOLE 40 MG VIAL IV SCH (08:25)
[2020-02-12] MEDS: SUCRALFATE 1 G/10 ML UDC GT SCH ×2 (08:25→17:04)
[2020-02-12] MEDS: BACLOFEN (10 MG) 10 MG TABLET GT SCH ×2 (08:26→17:05)
[2020-02-12] MEDS: METOPROLOL TARTRATE 25 MG TABLET GT SCH ×2 (08:26→16:54)
[2020-02-12] MEDS: AMIODARONE HCL 200 MG TABLET PO SCH ×2 (08:26→21:15)
[2020-02-12] MEDS: methylPREDNISolone SOD SUCC 125 MG/2ML VIAL IV SCH (08:27)
[2020-02-12] MEDS: ZINC SULFATE 220 MG CAPSULE GT SCH (08:27)
[2020-02-12] MEDS: APIXABAN 5 MG TABLET PO SCH ×2 (08:52→17:36)
[2020-02-12] MEDS: Z GUARD REMEDY 2 OZ OINT TP SCH (09:00)
[2020-02-12] MEDS: CLOTRIMAZOLE 1% 15 GM TUBE TP SCH ×2 (09:00→17:10)
[2020-02-12] MEDS: DAKINS QUARTER STRENGTH (0.125%) 480 ML BOTTLE TOP SCH (09:00)
[2020-02-12] MEDS: MUPIROCIN OINT 2% 22 GM TUBE SCH ×2 (09:00→21:16)
[2020-02-12 12:00] VITALS: BP_SYST 144; BP_DIAS 51; BP_DIAS 56
[2020-02-12] MEDS: CEFEPIME 2 GM in IV D5W 100 ML IV SCH (13:28)
--- NOTE | 2020-02-12 13:47 | NUR ---
rn note: Blood sugar of [address] Benavides, 15 units of reg insulin given per orders and awaiting response.
[2020-02-12] MEDS ORDERED: FEE PK DOSING 1 MIN EA MC ONE (14:47)
--- NOTE | 2020-02-12 15:51 | NUR ---
RN NOTE: SPOKE TO DR. INIGUEZ ABOUT PATIENT'S UNCONTROLLED BLOOD SUGAR LEVEL. ORDER FOR ADDITIONAL INSULIN - LANTUS 20 UNITS Q DAILY AND AGGRESSIVE SLIDING SCALE GIVEN, NOTED AND CARRIED OUT. RANDOM GLUCOSE CHECK ORDERED PER POLICY. Addendum: 02/12/20 at 1756 by MELISSA LINCOLN RN ALSO INFORMED DR. INIGUEZ ABOUT PATIENT HAVING TUBE FEEDING AND RANDOM BLOOD GLUCOSE DRAW OF 518. MD IS AWARE OF THE SITUATION AND ORDER REMAINS THE SAME.
[2020-02-12 16:00] VITALS: BP_SYST 129; BP_DIAS 44; BP_DIAS 64
[2020-02-12] MEDS: VANCOMYCIN 500 MG in IV D5W 100ml IV SCH (16:53)
[2020-02-12] MEDS ORDERED: INSULIN GLARGINE, 100 UNIT/ML CARTRIDGE SQ SCH (17:00)
[2020-02-12] MEDS: DOCUSATE SODIUM LIQ 100 MG/10 ML UDC GT SCH (17:04)
[2020-02-12] MEDS: ASCORBIC ACID 500 MG TABLET GT SCH (17:05)
--- NOTE | 2020-02-12 19:31 | NUR ---
RN Closing NOTE: Patient in bed and awake. Unable to assess orientation. On cont. o2 via nc @ 4lpm with saturation noted @ 98%. Isolation precautions observed for Covid. No pain noted on patient. Tele monitor showing sinus rhythm noted on monitor. IV sites clean, dry, patent and intact. Currently with D5W @ 50mls/hr being tolerated well. Reyes catheter draining willie yellow urine noted. Gtube patent and in place, feeding being tolerated well. Call light in reach. Bed locked, low and at semi-marcelo's position. Alarm on. Side rails up x3. Safety ensured and observed. Due medications given. Wound treatment given as ordered. Endorsed to oncoming shift for BATOOL.
--- NOTE | 2020-02-12 19:55 | NUR ---
CEO NA NOTES RECEIVED PATIENT RESTING IN BED, NON VERBAL. ON 5L OF O2 WITH BREATHING EVEN AND UNLABORED, NO SOB NOTED. NO SIGNS OF ACUTE DISTRESS, NO COMPLAINTS OF PAIN OR DISCOMFORT- NO FACIAL GRIMACING NOTED. DONIS CATHETER NOTED AND IN PLACE. GTUBE FEEDING GLUCERNA 60 ML/HR. IV ON LFA #20 S/L AND TK MIDLINE #18. TELE MONITOR READS SINU 70s - 80s. SAFETY PRECAUTIONS IN PLACE WITH BED IN LOWEST POSITION, CALL LIGHT WITHIN REACH, BREAKS ON, SIDE RAILS UP. PATIENT KEPT CLEAN AND DRY. ALL NEEDS ANTICIPATED. WILL MONITOR ACCORDINGLY.
[2020-02-12 20:33] VITALS: BP 160/59
[2020-02-12] MEDS: ATORVASTATIN 40 MG TABLET GT SCH (21:16)
[2020-02-12] MEDS: QUETIAPINE FUMARATE 25 MG TABLET GT SCH (21:17)
[2020-02-13] MEDS: CEFEPIME 2 GM in IV D5W 100 ML IV SCH ×2 (00:22→13:20)
[2020-02-13 00:25] VITALS: BP 115/39
[2020-02-13] MEDS: BLOOD SUGAR DIAGNOSTIC 1 EACH STRIP IN SCH ×4 (00:46→17:10)
[2020-02-13] MEDS: INSULIN REGULAR, HUMAN 100 UNIT/ML 3 ML VIAL SQ PRN ×2 (00:49→05:40)
[2020-02-13] MEDS: GLUCERNA 1.2 1,000 ML BOTTLE GT PRN (02:02)
[2020-02-13] MEDS: VANCOMYCIN 500 MG in IV D5W 100ml IV SCH ×2 (04:00→16:28)
[2020-02-13 04:35] VITALS: BP 115/39
--- NOTE | 2020-02-13 06:00 | NUR ---
QUANTITATIVE DEVELOPER NOTES ABLE TO REST AND SLEPT COMFORTABLY AT INTERVALS, NON VERBAL. ON 5L OF O2 WITH BREATHING EVEN AND UNLABORED, NO SOB NOTED. NO SIGNS OF ACUTE DISTRESS, NO COMPLAINTS OF PAIN OR DISCOMFORT- NO FACIAL GRIMACING NOTED. DONIS CATHETER NOTED AND IN PLACE DRAINING TO A YELLOW URINE OUTPUT . GTUBE FEEDING GLUCERNA 60 ML/HR. IV ON LFA #20 S/L AND TK MIDLINE #18. SAFETY PRECAUTIONS IN PLACE WITH BED IN LOWEST POSITION, CALL LIGHT WITHIN EASY REACH, BREAKS ON, SIDE RAILS UP. ALL NEEDS ATTENDED TO, AND MET. WOUND TREATMENT DONE ORDERED. PATIENT KEPT CLEAN AND DRY. WILL ENDORSE TO AM NURSE FOR CONTINUITY OF CARE.
[2020-02-13 06:57] LABS: BILIRUBIN,TOTAL 0.4 mg/dL (0.2-1.0); CALCIUM, SERUM 8.3 mg/dL (8.5-10.1); CREATININE 0.8 mg/dL (0.6-1.3); MAGNESIUM 2.5 mg/dL (1.8-2.4); PHOSPHORUS 3.7 mg/dL (2.5-4.9); POTASSIUM 3.9 mmol/L (3.5-5.1); TOTAL PROTEIN, SERUM 5.1 g/dL (6.4-8.2)
[2020-02-13 07:04] LABS: BASOPHILS % (AUTO) 0.2 % (0.0-2.0); EOSINOPHILS % (AUTO) 0.6 % (0.0-6.0); HEMATOCRIT 37 % (39-51); HEMOGLOBIN 11.3 g/dL (13.5-17.5); LYMPHOCYTES # (AUTO) 0.9 /CMM (0.8-4.8); LYMPHOCYTES % (AUTO) 5.3 % (20.0-44.0); MEAN CORPUSCULAR HGB CONC 31 g/dl (31.0-36.0); MEAN CORPUSCULAR VOLUME 98 fL (80-96); MONOCYTES # (AUTO) 0.3 /CMM (0.1-1.30); MONOCYTES % (AUTO) 1.9 % (2.0-12.0); PLATELET COUNT (AUTO) 218 /CMM (150-450); RED BLOOD CELL COUNT(AUTO) 3.72 MIL/uL (4.5-6.0); WHITE BLOOD COUNT (AUTO) 16.3 K/uL (4.3-11.0)
[2020-02-13 08:00] VITALS: BP 132/45
--- NOTE | 2020-02-13 08:00 | NUR ---
RENEWALS MANAGER OPENING NOTES RECEIVED PATIENT SEEING IN BED , NON VERBAL. ON 5L OF O2 WITH BREATHING EVENLY AND UNLABORED, NO SOB NOTED. NO SIGNS OF ACUTE DISTRESS, NO COMPLAINTS OF PAIN OR DISCOMFORT- NO FACIAL GRIMACING NOTED. DONIS CATHETER NOTED AND IN PLACE, DRAINING YELLOW URINE . GTUBE FEEDING GLUCERNA 60 ML/HR STOPPED AT THE MOMENT. IV ON LFA #20 S/L AND TK MIDLINE #18. SAFETY PRECAUTIONS IN PLACE WITH BED IN LOWEST POSITION, CALL LIGHT WITHIN EASY REACH, BREAKS ON, SIDE RAILS UP X2. ALL NEEDS ATTENDED TO, AND MET. WOUND TREATMENT DONE ORDERED. PATIENT KEPT CLEAN AND DRY. WILL ENDORSE CONTINUE TO MONITOR.
[2020-02-13] MEDS: DAKINS QUARTER STRENGTH (0.125%) 480 ML BOTTLE TOP SCH (08:39)
[2020-02-13] MEDS: Z GUARD REMEDY 2 OZ OINT TP SCH (08:39)
[2020-02-13] MEDS: CLOTRIMAZOLE 1% 15 GM TUBE TP SCH ×2 (08:40→17:09)
[2020-02-13] MEDS: IV D5W 1,000 ML IV PRN (08:40)
[2020-02-13] MEDS: ACETAMINOPHEN 650 MG/20.3 ML UDC GT SCH (08:41)
[2020-02-13] MEDS: SUCRALFATE 1 G/10 ML UDC GT SCH ×2 (08:41→16:28)
[2020-02-13] MEDS: LINAGLIPTIN 5 MG TABLET PO SCH (08:42)
[2020-02-13] MEDS: PANTOPRAZOLE 40 MG VIAL IV SCH (08:42)
[2020-02-13] MEDS: BACLOFEN (10 MG) 10 MG TABLET GT SCH ×2 (08:42→16:27)
[2020-02-13] MEDS: ZINC SULFATE 220 MG CAPSULE GT SCH (08:43)
[2020-02-13] MEDS: APIXABAN 5 MG TABLET PO SCH ×2 (08:49→16:29)
[2020-02-13] MEDS: MUPIROCIN OINT 2% 22 GM TUBE SCH ×2 (08:53→16:56)
[2020-02-13] MEDS: Z GUARD REMEDY 2 OZ OINT TP PRN (08:54)
[2020-02-13] MEDS: METOPROLOL TARTRATE 25 MG TABLET GT SCH ×2 (08:56→16:28)
[2020-02-13] MEDS: AMIODARONE HCL 200 MG TABLET PO SCH ×2 (08:56→21:56)
--- NOTE | 2020-02-13 11:16 | NUR ---
on the initial assessment, the g - tube is found with increased amount of leaking. tube leakage has been notified to Dr. Benavides. G tube feeding is stopped at this time, will wait for MD'S recommendation.
[2020-02-13 12:00] VITALS: BP 147/58
--- NOTE | 2020-02-13 12:00 | NUR ---
wound care has been performed on genital area, sacral area, both hips laterally, and back of shoulders at the scapula borders.
[2020-02-13] MEDS ORDERED: IV D5W 1,000 ML IV PRN (12:30)
--- NOTE | 2020-02-13 12:51 | NUR ---
DR Warren was notified re; GT is leaking consulted to [phone] left message and waiting for returning call back
[2020-02-13 16:00] VITALS: BP 142/52
--- NOTE | 2020-02-13 16:19 | NUR ---
Dr. Prince was left a message with Darcy for G tube consultation at [phone].
[2020-02-13] MEDS ORDERED: TPN/PPN PER PHARMACY XX PRN (16:30)
[2020-02-13] MEDS: INSULIN GLARGINE, 100 UNIT/ML CARTRIDGE SQ SCH (16:40)
[2020-02-13] MEDS: DOCUSATE SODIUM LIQ 100 MG/10 ML UDC GT SCH (17:33)
[2020-02-13] MEDS: ASCORBIC ACID 500 MG TABLET GT SCH (17:33)
--- NOTE | 2020-02-13 18:12 | NUR ---
FAMILY CONSUMER SCIENCE FCS TEACHER CLOSING NOTES PATIENT IS SLEEPING IN BED , NON VERBAL. ON 5L OF O2 WITH BREATHING EVENLY AND UNLABORED, NO SOB NOTED. NO SIGNS OF ACUTE DISTRESS, NO COMPLAINTS OF PAIN OR DISCOMFORT- NO FACIAL GRIMACING NOTED. DONIS CATHETER NOTED AND IN PLACE, DRAINING YELLOW URINE . GTUBE FEEDING GLUCERNA 60 ML/HR STOPPED AT THE MOMENT. IV ON LFA #20 S/L AND TK MIDLINE #18. SAFETY PRECAUTIONS IN PLACE WITH BED IN LOWEST POSITION, CALL LIGHT WITHIN EASY REACH, BREAKS ON, SIDE RAILS UP X2. ALL NEEDS ATTENDED TO, AND MET. WOUND TREATMENT DONE ORDERED. PATIENT KEPT CLEAN AND DRY. WILL ENDORSE THE INCOMING SHIFT.
[2020-02-13 20:00] VITALS: BP 138/42
[2020-02-13] MEDS: ATORVASTATIN 40 MG TABLET GT SCH (21:57)
[2020-02-13] MEDS: QUETIAPINE FUMARATE 25 MG TABLET GT SCH (21:58)
[2020-02-14] VITALS: BP 141/36
[2020-02-14] MEDS: BLOOD SUGAR DIAGNOSTIC 1 EACH STRIP IN SCH ×4 (00:05→17:44)
[2020-02-14] MEDS: INSULIN REGULAR, HUMAN 100 UNIT/ML 3 ML VIAL SQ PRN ×2 (00:07→17:42)
[2020-02-14] MEDS: CEFEPIME 2 GM in IV D5W 100 ML IV SCH ×2 (01:47→13:49)
[2020-02-14 03:19] LABS: BASOPHILS % (AUTO) 0.3 % (0.0-2.0); EOSINOPHILS % (AUTO) 4.5 % (0.0-6.0); HEMATOCRIT 34 % (39-51); HEMOGLOBIN 10.6 g/dL (13.5-17.5); LYMPHOCYTES # (AUTO) 1.3 /CMM (0.8-4.8); LYMPHOCYTES % (AUTO) 10.9 % (20.0-44.0); MEAN CORPUSCULAR HGB CONC 31 g/dl (31.0-36.0); MEAN CORPUSCULAR VOLUME 98 fL (80-96); MONOCYTES # (AUTO) 0.4 /CMM (0.1-1.30); MONOCYTES % (AUTO) 3.1 % (2.0-12.0); NEUTROPHILS % (AUTO) 81.2 % (43.0-81.0); PLATELET COUNT (AUTO) 229 /CMM (150-450); RED BLOOD CELL COUNT(AUTO) 3.49 MIL/uL (4.5-6.0); WHITE BLOOD COUNT (AUTO) 12.3 K/uL (4.3-11.0)
[2020-02-14 03:32] LABS: BILIRUBIN,TOTAL 0.6 mg/dL (0.2-1.0); CALCIUM, SERUM 7.7 mg/dL (8.5-10.1); CREATININE 0.8 mg/dL (0.6-1.3); MAGNESIUM 2.1 mg/dL (1.8-2.4); PHOSPHORUS 3.8 mg/dL (2.5-4.9); POTASSIUM 4.7 mmol/L (3.5-5.1); TOTAL PROTEIN, SERUM 4.7 g/dL (6.4-8.2)
[2020-02-14 04:00] VITALS: BP 100/33
[2020-02-14] MEDS: VANCOMYCIN 500 MG in IV D5W 100ml IV SCH (04:02)
--- NOTE | 2020-02-14 07:50 | NUR ---
RN OPENING NOTE: RECEIVED PATIENT IN BED THIS MORNING. PATIENT IS ALERT AND ORIENTED X1, CONFUSED. ON 5L/MIN O2 VIA NC, NO SIGNS OF ACUTE RESPIRATORY DISTRESS NOTED. NO SIGNS OF ACUTE DISTRESS NOTED. ISOLATION PRECAUTIONS FOR + COVID 19. PATIENT HAS PRODUCTIVE COUGH. SR IN THE 70S ON THE TELE MONITOR. WOUND CARE PER ORDERS. GT CLAMPED UNTIL ASSESSMENT FROM DR JARAMILLO AND ORDERS TO RESUME FEEDING. PATIENT HAS A DONIS CATHETER, DRAINING CLEAR, YELLOW URINE. PATIENT IS BED BOUND. BUE, RLE EDEMA. #22 ON LFA, TK MIDLINE, C/D/I, FLUSHING WELL, NO SIGNS OF COMPLICATIONS NOTED. SAFETY MEASURES IMPLEMENTED, BED IN LOWEST POSITION, LOCKED, SIDE RAILS UP X2, CALL LIGHT WITHIN REACH. WILL CONTINUE TO MONITOR PATIENT FOR CHANGES.
[2020-02-14 08:00] VITALS: BP_SYST 100; BP_SYST 125; BP_DIAS 34; BP_DIAS 50
[2020-02-14] MEDS: METOPROLOL TARTRATE 25 MG TABLET GT SCH ×2 (09:00→16:55)
[2020-02-14] MEDS: AMIODARONE HCL 200 MG TABLET PO SCH ×2 (09:00→23:02)
--- NOTE | 2020-02-14 09:11 | NUR ---
PER DR INIGUEZ, HOLD ALL CARDIAC/BP MEDS AND DON'T ADMINISTER UNDER 110 SBP
[2020-02-14] MEDS: ACETAMINOPHEN 650 MG/20.3 ML UDC GT SCH (09:18)
[2020-02-14] MEDS: BACLOFEN (10 MG) 10 MG TABLET GT SCH ×2 (09:18→16:55)
[2020-02-14] MEDS: LINAGLIPTIN 5 MG TABLET PO SCH (09:18)
[2020-02-14] MEDS: ZINC SULFATE 220 MG CAPSULE GT SCH (09:18)
[2020-02-14] MEDS: SUCRALFATE 1 G/10 ML UDC GT SCH ×2 (09:18→16:57)
[2020-02-14] MEDS: PANTOPRAZOLE 40 MG VIAL IV SCH (09:19)
[2020-02-14] MEDS: APIXABAN 5 MG TABLET PO SCH ×2 (09:19→17:07)
[2020-02-14] MEDS: CLOTRIMAZOLE 1% 15 GM TUBE TP SCH ×2 (09:20→17:11)
[2020-02-14] MEDS: MUPIROCIN OINT 2% 22 GM TUBE SCH ×2 (09:20→21:00)
[2020-02-14] MEDS: Z GUARD REMEDY 2 OZ OINT TP SCH (09:20)
[2020-02-14] MEDS: DAKINS QUARTER STRENGTH (0.125%) 480 ML BOTTLE TOP SCH (09:20)
[2020-02-14 12:00] VITALS: BP_SYST 121; BP_SYST 141; BP_DIAS 39; BP_DIAS 46
[2020-02-14] MEDS: PROSOURCE / PROSTAT (PYXIS) 30 ML UDC GT SCH ×2 (13:48→17:12)
[2020-02-14] MEDS: METOCLOPRAMIDE HCL 10 MG TABLET GT SCH ×2 (13:49→23:13)
--- NOTE | 2020-02-14 14:17 | NUR ---
RX CALLED AND STATED THERES A REGLAN AND SEROQUEL INTERACTION. DR INIGUEZ DC THE SEROQUEL. ADMINISTERED THE REGLAN AND STARTED THE FEEDING. WILL CONTINUE TO MONITOR PATIENT FOR GT LEAK AND NOTIFY DR JARAMILLO OF ANY ISSUES.
[2020-02-14] MEDS ORDERED: DIATR MEGLU/DIATRIZOATE SODIUM 30 ML BOTTLE (GASTROGRAPHIN) ONE (15:36)
[2020-02-14 16:00] VITALS: BP 154/40
--- NOTE | 2020-02-14 16:50 | NUR ---
WAS AWAITING INSULIN FOR PHARMACY TO BRING TO COVER PATIENT'S ELEVATED BLOOD GLUCOSE FROM 1200, JUST RECEIVED IT. WILL AWAIT UNTIL 1700 TO RECHECK BLOOD SUGAR AND ADMINISTER INSULIN IF NEEDED.
[2020-02-14] MEDS: VANCOMYCIN 0.75 GM in IV D5W 250 ML IV SCH (16:54)
[2020-02-14] MEDS: DOCUSATE SODIUM LIQ 100 MG/10 ML UDC GT SCH (17:14)
[2020-02-14] MEDS: ASCORBIC ACID 500 MG TABLET GT SCH (17:14)
[2020-02-14] MEDS: INSULIN GLARGINE, 100 UNIT/ML CARTRIDGE SQ SCH (17:41)
--- NOTE | 2020-02-14 19:02 | NUR ---
RN CLOSING NOTE: PATIENT REMAINS IN BED. NO SIGNS OF ACUTE DISTRESS NOTED. SR/ST IN THE 100S W/ OCCASIONAL PAC ON TELE MONITOR. SAFETY MEASURES IMPLEMENTED, BED IN LOWEST POSITION, LOCKED, SIDE RAILS UP X2, CALL LIGHT WITHIN REACH. WILL ENDORSE TO ONCOMING SHIFT RN FOR CONTINUITY OF CARE.
[2020-02-14 20:00] VITALS: BP 121/42
[2020-02-14] MEDS ORDERED: CEFEPIME 1 GM VIAL ONE (22:19)
[2020-02-14] MEDS: ATORVASTATIN 40 MG TABLET GT SCH (23:04)
[2020-02-15] VITALS: BP 135/58
[2020-02-15] MEDS: INSULIN REGULAR, HUMAN 100 UNIT/ML 3 ML VIAL SQ PRN ×3 (00:37→13:03)
[2020-02-15] MEDS: BLOOD SUGAR DIAGNOSTIC 1 EACH STRIP IN SCH ×4 (00:40→17:41)
[2020-02-15] MEDS: CEFEPIME 2 GM in IV D5W 100 ML IV SCH ×2 (00:46→12:52)
[2020-02-15 04:00] VITALS: BP 109/46
[2020-02-15] MEDS: VANCOMYCIN 0.75 GM in IV D5W 250 ML IV SCH ×2 (04:34→21:21)
[2020-02-15] MEDS: METOCLOPRAMIDE HCL 10 MG TABLET GT SCH ×3 (04:34→21:19)
[2020-02-15] MEDS: GLUCERNA 1.2 1,000 ML BOTTLE GT PRN (04:36)
[2020-02-15 06:48] LABS: BASOPHILS # (AUTO) 0.1 /CMM (0.0-0.2); BASOPHILS % (AUTO) 0.6 % (0.0-2.0); EOSINOPHILS % (AUTO) 3.8 % (0.0-6.0); HEMATOCRIT 28 % (39-51); HEMOGLOBIN 8.9 g/dL (13.5-17.5); LYMPHOCYTES # (AUTO) 1.4 /CMM (0.8-4.8); LYMPHOCYTES % (AUTO) 10.9 % (20.0-44.0); MEAN CORPUSCULAR HGB CONC 32 g/dl (31.0-36.0); MEAN CORPUSCULAR VOLUME 98 fL (80-96); MONOCYTES # (AUTO) 0.4 /CMM (0.1-1.30); MONOCYTES % (AUTO) 3.1 % (2.0-12.0); NEUTROPHILS # (AUTO) 10.4 /CMM (1.8-8.9); NEUTROPHILS % (AUTO) 81.6 % (43.0-81.0); PLATELET COUNT (AUTO) 220 /CMM (150-450); RED BLOOD CELL COUNT(AUTO) 2.86 MIL/uL (4.5-6.0); WHITE BLOOD COUNT (AUTO) 12.7 K/uL (4.3-11.0)
--- NOTE | 2020-02-15 06:53 | NUR ---
RN notes Patient in bed with eyes closed, alert to self, withdraws from pain. No distress noted. breathing even and unlabored. On O2 at 5 lpm via nasal cannula with tolerating well. No significant change of condition. Vital signs within normal level. No physical manifestation of pain or discomfort. Kept clean and dry. Will endorse to next shift for continuity of care.
[2020-02-15 06:59] LABS: BILIRUBIN,TOTAL 0.4 mg/dL (0.2-1.0); CALCIUM, SERUM 7.3 mg/dL (8.5-10.1); CREATININE 0.9 mg/dL (0.6-1.3); PHOSPHORUS 2.5 mg/dL (2.5-4.9); POTASSIUM 3.9 mmol/L (3.5-5.1); TOTAL PROTEIN, SERUM 4.3 g/dL (6.4-8.2)
--- NOTE | 2020-02-15 07:00 | NUR ---
RN TELE1 PATIENT OPENS EYES. ALERT BUT CONFUSED , NO SIGNS OF DISTRESS AT THSI TIME. 2LMP sATURATING >95% ON EXTERNAL MONITOR SR. PATIENT ON DIAPER WITH WOUNDS R HEAL LEFT BOOT, TK MIDLINE WITH D5NS @ 75 ML/HR. NO SIGNS OF INFILTRATION, LINE FLUSHED AND PATENT. BED LOCKED LOWEST POSITION CALL LIGHT WITH IN REACH ALL SAFETY MEASURES IMPLEMENTED PER HOSPITAL POLICY
[2020-02-15 07:04] LABS: ALBUMIN 0.9 g/dL (3.4-5.0)
[2020-02-15 08:00] VITALS: BP 109/46
[2020-02-15] MEDS: PANTOPRAZOLE 40 MG VIAL IV SCH (09:40)
[2020-02-15] MEDS: ZINC SULFATE 220 MG CAPSULE GT SCH (09:40)
[2020-02-15] MEDS: SUCRALFATE 1 G/10 ML UDC GT SCH ×2 (09:40→17:29)
[2020-02-15] MEDS: AMIODARONE HCL 200 MG TABLET PO SCH ×2 (09:41→21:00)
[2020-02-15] MEDS: METOPROLOL TARTRATE 25 MG TABLET GT SCH ×2 (09:41→17:30)
[2020-02-15] MEDS: BACLOFEN (10 MG) 10 MG TABLET GT SCH ×2 (09:41→17:30)
[2020-02-15] MEDS: LINAGLIPTIN 5 MG TABLET PO SCH (09:41)
[2020-02-15] MEDS: ACETAMINOPHEN 650 MG/20.3 ML UDC GT SCH (09:41)
[2020-02-15] MEDS: APIXABAN 5 MG TABLET PO SCH ×2 (09:42→17:31)
[2020-02-15] MEDS: DAKINS QUARTER STRENGTH (0.125%) 480 ML BOTTLE TOP SCH (09:42)
[2020-02-15] MEDS: CLOTRIMAZOLE 1% 15 GM TUBE TP SCH ×2 (09:43→17:31)
[2020-02-15] MEDS: Z GUARD REMEDY 2 OZ OINT TP SCH (09:43)
[2020-02-15] MEDS: MUPIROCIN OINT 2% 22 GM TUBE SCH ×2 (09:48→21:00)
[2020-02-15] MEDS: PROSOURCE / PROSTAT (PYXIS) 30 ML UDC GT SCH ×3 (09:48→17:29)
--- NOTE | 2020-02-15 11:33 | NUR ---
SARAH TELE1 [facility] TEST SUMMITED TO LAB 1124
[2020-02-15 16:00] VITALS: BP 110/37
[2020-02-15] MEDS: DOCUSATE SODIUM LIQ 100 MG/10 ML UDC GT SCH (17:29)
[2020-02-15] MEDS: ASCORBIC ACID 500 MG TABLET GT SCH (17:29)
[2020-02-15] MEDS: INSULIN GLARGINE, 100 UNIT/ML CARTRIDGE SQ SCH (17:41)
--- NOTE | 2020-02-15 18:30 | NUR ---
FIELD CREW CHIEF 1 CLOSING PATIENT VITALS STABLE NO DISTRESS NOTED AT THIS TIME.NO SIGNIFICANT CHANGES PATIENT IS ASLEEP WAKES UP TO LIGHT PAIN. AND NAME. ALL AM CARE COMPLETED, ALL WOUND TX COMPLETED, PATIENT TURNED AND REPOSITION BED LOCKED AND LOWEST POSITION CALL LIGHT WITH IN REACH ALL SAFETY MEASURE IMPLEMENTED PER HOSPITAL POLICY WILL ENDORSE TO ON COMING SHIFT
--- NOTE | 2020-02-15 19:43 | NUR ---
RN OPENING NOTES PATIENT IS SLEEPING IN BED , NON VERBAL. ON 5L OF O2 WITH BREATHING EVENLY AND UNLABORED, NO SOB NOTED. NO SIGNS OF ACUTE DISTRESS, NO COMPLAINTS OF PAIN OR DISCOMFORT- NO FACIAL GRIMACING NOTED. DONIS CATHETER NOTED AND IN PLACE, DRAINING YELLOW URINE . G TUBE CONTINUES TO HAVE A LEAKAGE. IV ON LFA #20 S/L AND TK MIDLINE #18. SAFETY PRECAUTIONS IN PLACE WITH BED IN LOWEST POSITION, CALL LIGHT WITHIN EASY REACH, BREAKS ON, SIDE RAILS UP X2. ALL NEEDS ATTENDED TO, AND MET. WILL CONTINUE TO MONITOR THE PATIENT.
[2020-02-15] MEDS: ATORVASTATIN 40 MG TABLET GT SCH (21:21)
[2020-02-15 22:12] VITALS: BP 122/38
[2020-02-16] VITALS (7 sets, daily range): BP systolic 103–122; BP diastolic 35–76
[2020-02-16] MEDS: CEFEPIME 2 GM in IV D5W 100 ML IV SCH ×2 (01:20→13:20)
--- NOTE | 2020-02-16 03:00 | NUR ---
WOUND DRESSING CHANGE WAS PERFORMED. DTI IS BLACK WITH A WIDTH OF 11CM BY 12 CM IN LENGTH. PICTURES WERE TAKEN AND PLACED IN CHART.
[2020-02-16] MEDS: GLUCERNA 1.2 1,000 ML BOTTLE GT PRN (04:51)
[2020-02-16] MEDS: METOCLOPRAMIDE HCL 10 MG TABLET GT SCH ×2 (05:48→13:20)
[2020-02-16] MEDS: BLOOD SUGAR DIAGNOSTIC 1 EACH STRIP IN SCH ×4 (06:16→17:53)
--- NOTE | 2020-02-16 07:35 | NUR ---
RN CLOSING NOTES PATIENT IS SLEEPING IN BED , NON VERBAL. ON 5L OF O2 WITH BREATHING EVENLY AND UNLABORED, NO SOB NOTED. NO SIGNS OF ACUTE DISTRESS, NO COMPLAINTS OF PAIN OR DISCOMFORT- NO FACIAL GRIMACING NOTED. DONIS CATHETER NOTED AND IN PLACE, DRAINING YELLOW URINE . G TUBE CONTINUES TO HAVE A LEAKAGE. IV ON LFA #20 S/L AND TK MIDLINE #18. SAFETY PRECAUTIONS IN PLACE WITH BED IN LOWEST POSITION, CALL LIGHT WITHIN EASY REACH, BREAKS ON, SIDE RAILS UP X2. ALL NEEDS ATTENDED TO, AND MET. WILL ENDORSE THE NEXT SHIFT.
[2020-02-16 08:05] LABS: CALCIUM, SERUM 7.3 mg/dL (8.5-10.1); CREATININE 0.8 mg/dL (0.6-1.3); POTASSIUM 3.7 mmol/L (3.5-5.1)
[2020-02-16] MEDS: SUCRALFATE 1 G/10 ML UDC GT SCH ×2 (09:47→17:58)
[2020-02-16] MEDS: LINAGLIPTIN 5 MG TABLET PO SCH (09:47)
[2020-02-16] MEDS: PANTOPRAZOLE 40 MG VIAL IV SCH (09:47)
[2020-02-16] MEDS: ACETAMINOPHEN 650 MG/20.3 ML UDC GT SCH (09:47)
[2020-02-16] MEDS: ZINC SULFATE 220 MG CAPSULE GT SCH (09:49)
[2020-02-16] MEDS: APIXABAN 5 MG TABLET PO SCH ×2 (09:49→18:12)
[2020-02-16] MEDS: BACLOFEN (10 MG) 10 MG TABLET GT SCH ×2 (09:50→17:58)
[2020-02-16] MEDS: AMIODARONE HCL 200 MG TABLET PO SCH ×2 (09:50→22:05)
[2020-02-16] MEDS: METOPROLOL TARTRATE 25 MG TABLET GT SCH ×2 (09:50→17:58)
[2020-02-16] MEDS: DAKINS QUARTER STRENGTH (0.125%) 480 ML BOTTLE TOP SCH (09:51)
[2020-02-16] MEDS: PROSOURCE / PROSTAT (PYXIS) 30 ML UDC GT SCH ×3 (09:51→17:54)
[2020-02-16] MEDS: MUPIROCIN OINT 2% 22 GM TUBE SCH (09:51)
[2020-02-16] MEDS: Z GUARD REMEDY 2 OZ OINT TP SCH (09:52)
[2020-02-16] MEDS: CLOTRIMAZOLE 1% 15 GM TUBE TP SCH ×2 (09:52→17:53)
--- NOTE | 2020-02-16 11:43 | NUR ---
follow up covid result still pending.
[2020-02-16] MEDS: INSULIN REGULAR, HUMAN 100 UNIT/ML 3 ML VIAL SQ PRN ×2 (12:47→18:15)
[2020-02-16] MEDS: VANCOMYCIN 0.75 GM in IV D5W 250 ML IV SCH (16:04)
[2020-02-16] MEDS: ASCORBIC ACID 500 MG TABLET GT SCH (17:53)
[2020-02-16] MEDS: DOCUSATE SODIUM LIQ 100 MG/10 ML UDC GT SCH (17:53)
--- NOTE | 2020-02-16 18:00 | NUR ---
follow up covid result still pending.
[2020-02-16] MEDS: INSULIN GLARGINE, 100 UNIT/ML CARTRIDGE SQ SCH (18:13)
--- NOTE | 2020-02-16 18:51 | NUR ---
RN TELE1 CLOSING PATIENT REMAINS STABLE AT THIS TIME, VITALS STABLE, NO ACUTE RESPIRATORY DISTRESS. NO PAIN. AM CARE COMPLETED, WOUND TX DONE, BED LOCKED AND LOWEST POSITION CALL LIGHT WITH IN REACH ALL SAFETY MEASURES IMPLEMENTED PER HOSPITAL POLICY. PATIENT TURNED AND REPOSITION Q2H WILL ENDORSE TO PM SHIFT
[2020-02-16] MEDS: ATORVASTATIN 40 MG TABLET GT SCH (22:01)
[2020-02-17] MEDS: INSULIN GLARGINE, 100 UNIT/ML CARTRIDGE SQ SCH
[2020-02-17] MEDS: METOCLOPRAMIDE HCL 10 MG TABLET GT SCH ×3 (01:28→21:01)
[2020-02-17] MEDS: CEFEPIME 2 GM in IV D5W 100 ML IV SCH ×2 (01:29→14:00)
[2020-02-17 04:00] VITALS: BP 117/42
[2020-02-17] MEDS: INSULIN REGULAR, HUMAN 100 UNIT/ML 3 ML VIAL SQ PRN ×3 (05:39→18:00)
[2020-02-17] MEDS: BLOOD SUGAR DIAGNOSTIC 1 EACH STRIP IN SCH ×4 (05:40→18:00)
[2020-02-17 06:42] LABS: BASOPHILS % (AUTO) 0.3 % (0.0-2.0); EOSINOPHILS % (AUTO) 4.1 % (0.0-6.0); HEMATOCRIT 30 % (39-51); HEMOGLOBIN 9.4 g/dL (13.5-17.5); LYMPHOCYTES % (AUTO) 7.3 % (20.0-44.0); MEAN CORPUSCULAR HGB CONC 31 g/dl (31.0-36.0); MEAN CORPUSCULAR VOLUME 97 fL (80-96); MONOCYTES # (AUTO) 0.5 /CMM (0.1-1.30); MONOCYTES % (AUTO) 4.1 % (2.0-12.0); NEUTROPHILS # (AUTO) 11.2 /CMM (1.8-8.9); NEUTROPHILS % (AUTO) 84.2 % (43.0-81.0); PLATELET COUNT (AUTO) 278 /CMM (150-450); RED BLOOD CELL COUNT(AUTO) 3.09 MIL/uL (4.5-6.0); WHITE BLOOD COUNT (AUTO) 13.3 K/uL (4.3-11.0)
[2020-02-17 06:55] LABS: CALCIUM, SERUM 7.9 mg/dL (8.5-10.1); CREATININE 0.9 mg/dL (0.6-1.3); POTASSIUM 3.9 mmol/L (3.5-5.1)
[2020-02-17 08:00] VITALS: BP_SYST 113; BP_DIAS 42; BP_DIAS 62
[2020-02-17] MEDS: PROSOURCE / PROSTAT (PYXIS) 30 ML UDC GT SCH ×3 (09:00→17:00)
[2020-02-17] MEDS: DAKINS QUARTER STRENGTH (0.125%) 480 ML BOTTLE TOP SCH (09:00)
[2020-02-17] MEDS: Z GUARD REMEDY 2 OZ OINT TP SCH (09:00)
[2020-02-17] MEDS: CLOTRIMAZOLE 1% 15 GM TUBE TP SCH ×2 (09:00→17:00)
[2020-02-17] MEDS: METOPROLOL TARTRATE 25 MG TABLET GT SCH ×2 (10:55→17:38)
[2020-02-17] MEDS: LINAGLIPTIN 5 MG TABLET PO SCH (10:55)
[2020-02-17] MEDS: AMIODARONE HCL 200 MG TABLET PO SCH ×2 (10:55→21:02)
[2020-02-17] MEDS: ZINC SULFATE 220 MG CAPSULE GT SCH (10:56)
[2020-02-17] MEDS: ACETAMINOPHEN 650 MG/20.3 ML UDC GT SCH (10:56)
[2020-02-17] MEDS: BACLOFEN (10 MG) 10 MG TABLET GT SCH ×2 (10:56→17:38)
[2020-02-17] MEDS: SUCRALFATE 1 G/10 ML UDC GT SCH ×2 (10:56→17:38)
[2020-02-17] MEDS: PANTOPRAZOLE 40 MG VIAL IV SCH (10:56)
[2020-02-17] MEDS: APIXABAN 5 MG TABLET PO SCH ×2 (10:57→17:37)
[2020-02-17] MEDS: VANCOMYCIN 0.75 GM in IV D5W 250 ML IV SCH (11:23)
[2020-02-17 12:00] VITALS: BP_SYST 110; BP_SYST 141; BP_DIAS 36; BP_DIAS 59
[2020-02-17 16:00] VITALS: BP_SYST 129; BP_DIAS 39; BP_DIAS 69
[2020-02-17] MEDS: ASCORBIC ACID 500 MG TABLET GT SCH (17:37)
[2020-02-17] MEDS: DOCUSATE SODIUM LIQ 100 MG/10 ML UDC GT SCH (17:38)
--- NOTE | 2020-02-17 19:30 | NUR ---
RN OPENING NOTES: Received pt resting in bed, alert to self. On isolation for positive Covid. On 5L/min NC tolerating well. SR/ST on tele monitor. No SOB or respiratory distress noted. LFA #22 and TK midline patent and flushing. Dressings c/d/i. Reyes cath in place draining urine via gravity. GTF of Glucerna running at 60ml/hr tolerating well. No residual noted. Safety measures in place. Will continue to monitor.
--- NOTE | 2020-02-17 19:40 | NUR ---
RN Closing NOTE: Patient in bed and awake. Unable to assess orientation. On cont. o2 via nc @ 4lpm with saturation noted @ 98%. Isolation precautions observed for Covid. No pain noted on patient. Tele monitor showing sinus rhythm noted on monitor. IV sites clean, dry, patent and intact. Reyes catheter draining willie yellow urine noted. Gtube patent and in place, feeding being tolerated well. Call light in reach. Bed locked, low and at semi-marcelo's position. Alarm on. Side rails up x3. Safety ensured and observed. Due medications given. Wound treatment given as ordered. Endorsed to oncoming shift for BATOOL.
[2020-02-17 20:00] VITALS: BP 117/40
[2020-02-17] MEDS: ATORVASTATIN 40 MG TABLET GT SCH (21:01)
--- NOTE | 2020-02-17 21:19 | NUR ---
RN NOTES: Per Dr. Benavides, spoke with family and agreed to change code status to DNR. Order noted and carried out.
--- NOTE | 2020-02-17 21:48 | NUR ---
RN Closing NOTE: Patient in bed and awake. Unable to assess orientation. On cont. o2 via nc @ 4lpm with saturation noted @ 98%. Isolation precautions observed for Covid. No pain noted on patient. Tele monitor showing sinus rhythm noted on monitor. IV sites clean, dry, patent and intact. Reyes catheter draining willie yellow urine noted. Gtube patent and in place, feeding being tolerated well. Call light in reach. Bed locked, low and at semi-marcelo's position. Alarm on. Side rails up x3. Safety ensured and observed. Due medications given. Wound treatment given as ordered. Endorsed to oncoming shift for BATOOL. Addendum: 02/17/20 at 2143 by MELISSA LINCOLN RN wrong timing of charting--
[2020-02-18] VITALS: BP 111/43
[2020-02-18] MEDS: CEFEPIME 2 GM in IV D5W 100 ML IV SCH ×2 (00:15→14:20)
[2020-02-18] MEDS: INSULIN REGULAR, HUMAN 100 UNIT/ML 3 ML VIAL SQ PRN ×5 (00:23→23:09)
[2020-02-18] MEDS: BLOOD SUGAR DIAGNOSTIC 1 EACH STRIP IN SCH ×5 (00:23→23:07)
[2020-02-18 04:00] VITALS: BP 128/45
[2020-02-18] MEDS: METOCLOPRAMIDE HCL 10 MG TABLET GT SCH ×3 (04:12→21:00)
[2020-02-18] MEDS: VANCOMYCIN 0.75 GM in IV D5W 250 ML IV SCH ×2 (04:12→21:58)
--- NOTE | 2020-02-18 06:47 | NUR ---
RN CLOSING NOTES: Pt remains on 5L/min NC and isolation for Covid positive. Tolerating O2 well. No SOB or respiratory distress noted throughout shift. No acute changes noted during shift. All due meds given as ordered. Wound treatments done. Safety measures in place. Will endorse to AM nurse for BATOOL.
[2020-02-18 07:04] LABS: CALCIUM, SERUM 7.6 mg/dL (8.5-10.1); CREATININE 0.8 mg/dL (0.6-1.3)
--- NOTE | 2020-02-18 07:10 | NUR ---
RN NOTES RECEIVED PT ON BED, ALERT / NONVERBAL ,DOES NOT FOLLOW COMMAND, OPENS EYES TO PAINFUL STIMULI, MOANS AT TIMES, ON 5L O2 N/C , NO SOB NOTED, O2 SAT WNL, ON TELE SR HR IN 90'S , DONIS DRAINING TO GRAVITY, G TUBE FEEDING AT 60CC/ HR RUNNING , NO RESIDUAL NOTED , CALL LIGHT WITHIN EASY REACH, BED LOCKED AND IN LOWEST POSITION, CONTINUE TO MONITOR .
[2020-02-18 08:00] VITALS: BP 107/42
[2020-02-18] MEDS: AMIODARONE HCL 200 MG TABLET PO SCH ×2 (09:30→21:01)
[2020-02-18] MEDS: ACETAMINOPHEN 650 MG/20.3 ML UDC GT SCH (09:30)
[2020-02-18] MEDS: LINAGLIPTIN 5 MG TABLET PO SCH (09:30)
[2020-02-18] MEDS: ZINC SULFATE 220 MG CAPSULE GT SCH (09:30)
[2020-02-18] MEDS: PROSOURCE / PROSTAT (PYXIS) 30 ML UDC GT SCH ×3 (09:31→16:40)
[2020-02-18] MEDS: SUCRALFATE 1 G/10 ML UDC GT SCH ×2 (09:31→16:38)
[2020-02-18] MEDS: METOPROLOL TARTRATE 25 MG TABLET GT SCH ×2 (09:31→16:39)
[2020-02-18] MEDS: PANTOPRAZOLE 40 MG VIAL IV SCH (09:31)
[2020-02-18] MEDS: BACLOFEN (10 MG) 10 MG TABLET GT SCH ×2 (09:31→16:40)
[2020-02-18] MEDS: APIXABAN 5 MG TABLET PO SCH ×2 (09:33→16:40)
[2020-02-18] MEDS: DAKINS QUARTER STRENGTH (0.125%) 480 ML BOTTLE TOP SCH (09:33)
[2020-02-18] MEDS: CLOTRIMAZOLE 1% 15 GM TUBE TP SCH ×2 (09:34→16:42)
[2020-02-18] MEDS: Z GUARD REMEDY 2 OZ OINT TP SCH (09:35)
[2020-02-18 12:00] VITALS: BP_SYST 104; BP_SYST 105; BP_DIAS 35; BP_DIAS 45
--- NOTE | 2020-02-18 12:13 | NUR ---
RN NOTES ORDER RECEIVED FROM DR INIGUEZ TO CHANGED STATUS CODE TO DNR/DNI .
--- NOTE | 2020-02-18 13:00 | NUR ---
RN NOTES UNABLE TO FLUSH R UPPER ARM MIDLINE . AWAITING FOR MIDLINE NURSE TO GET A NEW MIDLINE PER DR INIGUEZ ORDER .
--- NOTE | 2020-02-18 14:19 | NUR ---
pending discharge per cm jesenia awaits approval from dept of health. dr. bates notified.
[2020-02-18] MEDS: GLUCERNA 1.2 1,000 ML BOTTLE GT PRN (14:49)
[2020-02-18 16:00] VITALS: BP_SYST 112; BP_SYST 120; BP_DIAS 32; BP_DIAS 45
[2020-02-18] MEDS: INSULIN GLARGINE, 100 UNIT/ML CARTRIDGE SQ SCH (17:17)
[2020-02-18] MEDS: ASCORBIC ACID 500 MG TABLET GT SCH (17:18)
[2020-02-18] MEDS: DOCUSATE SODIUM LIQ 100 MG/10 ML UDC GT SCH (17:18)
--- NOTE | 2020-02-18 18:36 | NUR ---
RN NOTES NO SIGNFICANT CHANGES NOTED ON THIS SHIFT, PT ON 5L O2 N/C, O2 SAT WNL, TOLERATING TF WELL, ALL DUE MEDS GIVEN ORDERED SR UP x3,CALL LIGHT WITHIN EASY REACH, BED LOCKED AND IN LOWEST POSITION, WILL ENDORSE TO BLADDER CHANGER NURSE FOR CONTINUITY OF CARE .
[2020-02-18 20:00] VITALS: BP 121/29
[2020-02-18] MEDS: ATORVASTATIN 40 MG TABLET GT SCH (21:01)
[2020-02-19] VITALS: BP 113/46
[2020-02-19] MEDS: CEFEPIME 2 GM in IV D5W 100 ML IV SCH ×2 (00:02→12:24)
[2020-02-19 04:00] VITALS: BP 92/32
[2020-02-19] MEDS: BLOOD SUGAR DIAGNOSTIC 1 EACH STRIP IN SCH ×4 (05:00→23:07)
[2020-02-19] MEDS: METOCLOPRAMIDE HCL 10 MG TABLET GT SCH ×3 (05:01→20:57)
[2020-02-19] MEDS: INSULIN REGULAR, HUMAN 100 UNIT/ML 3 ML VIAL SQ PRN ×4 (05:15→23:19)
[2020-02-19 06:40] LABS: CALCIUM, SERUM 8.2 mg/dL (8.5-10.1); CREATININE 0.9 mg/dL (0.6-1.3); POTASSIUM 4.5 mmol/L (3.5-5.1)
--- NOTE | 2020-02-19 06:49 | NUR ---
RN CLOSING NOTE NO ACUTE CHANGES OBSERVED OVERNIGHT. PT IS NON VERBAL BUT PHYSICALLY RESPONSIVE TO VERBAL AND TACTILE STIMULI.. GT FEEDING RUNNING ORDERED. MINIMAL GASTRIC RESIDUAL NOTED. DONIS CATHETER PATENT AND IN PLACE DRAINING CLEAR YELLOW URINE. CALL LIGHT WITHIN REACH, SAFETY MEASURES IN PLACE, WILL ENDORSE TO MORNING RN FOR CONTINUATION OF CARE.
--- NOTE | 2020-02-19 07:20 | NUR ---
RN OPENING NOTE Received patient asleep in bed appears calm and relaxed. On NC 5L tolerating well. No signs of distress. Patient is non verbal opens eyes when called by name. GT feeding running Glucerna @ 60ml/hr tolerating well. Has TK midline flushed well. Repositioned patient kept comfortable. Safety measures reinforced. Bed locked and on lowest position. Will cont to monitor.
[2020-02-19 08:00] VITALS: BP 112/33
[2020-02-19] MEDS: SUCRALFATE 1 G/10 ML UDC GT SCH ×2 (08:36→16:33)
[2020-02-19] MEDS: PANTOPRAZOLE 40 MG VIAL IV SCH (08:37)
[2020-02-19] MEDS: ZINC SULFATE 220 MG CAPSULE GT SCH (08:37)
[2020-02-19] MEDS: ACETAMINOPHEN 650 MG/20.3 ML UDC GT SCH (08:37)
[2020-02-19] MEDS: APIXABAN 5 MG TABLET PO SCH ×2 (08:37→16:34)
[2020-02-19] MEDS: AMIODARONE HCL 200 MG TABLET PO SCH ×2 (08:37→21:00)
[2020-02-19] MEDS: METOPROLOL TARTRATE 25 MG TABLET GT SCH ×2 (08:38→16:33)
[2020-02-19] MEDS: LINAGLIPTIN 5 MG TABLET PO SCH (08:38)
[2020-02-19] MEDS: BACLOFEN (10 MG) 10 MG TABLET GT SCH ×2 (08:38→16:33)
[2020-02-19] MEDS: PROSOURCE / PROSTAT (PYXIS) 30 ML UDC GT SCH ×3 (08:38→16:34)
[2020-02-19] MEDS: CLOTRIMAZOLE 1% 15 GM TUBE TP SCH ×2 (08:39→16:36)
[2020-02-19] MEDS: DAKINS QUARTER STRENGTH (0.125%) 480 ML BOTTLE TOP SCH (08:39)
[2020-02-19] MEDS: Z GUARD REMEDY 2 OZ OINT TP SCH (08:39)
[2020-02-19 10:05] LABS: ABG BASE EXCESS -2.3 mmol/L; ABG OXYGEN SATURATION 97.5 % (92.0-98.5); ABG PCO2 28.2 mmHg (35.0-45.0); ABG PH 7.481 (7.350-7.450); ABG PO2 97.4 mmHg (75.0-100.0); AaDO2 97.8 mmHg; COHb 0.2 % (0.5-1.5); MetHb 0.2 % (0.0-1.5); O2Hb 97.1 % (94.0-97.0); SITE, ABG Right Brachial; VENT MODE, BG 3LNC
[2020-02-19 12:00] VITALS: BP 129/40
--- NOTE | 2020-02-19 14:06 | NUR ---
DISCHARGE STILL PENDING PER CM SNF STILL WAITING FOR APPROVAL FROM DEPT. OF HEALTH.
[2020-02-19] MEDS: GLUCERNA 1.2 1,000 ML BOTTLE GT PRN (14:22)
[2020-02-19] MEDS: VANCOMYCIN 0.75 GM in IV D5W 250 ML IV SCH (15:49)
[2020-02-19 16:00] VITALS: BP 127/54
[2020-02-19] MEDS: INSULIN GLARGINE, 100 UNIT/ML CARTRIDGE SQ SCH (16:35)
[2020-02-19] MEDS: ASCORBIC ACID 500 MG TABLET GT SCH (17:04)
[2020-02-19] MEDS: DOCUSATE SODIUM LIQ 100 MG/10 ML UDC GT SCH (17:04)
--- NOTE | 2020-02-19 19:10 | NUR ---
RN CLOSING NOTE Patient in bed asleep calm and relaxed. On NC 5L tolerating well no signs of distress. Pt is still non verbal. Moans when in pain usually when being repositioned. No BM this shift. Flushed GT with water all throughout the day. FC drained 350 ml cloudy yellow urine. Glucerna 1.2 @ 60ml/hr running on GT. Changed dressing on GT with slight leakage noted. Secured with abdominal pad. TK midline line patent and intact dressing. Administered insulin as ordered. Per CM hold DC until pt is afebrile for 72hrs. All due meds given. Kept patient clean and comfortable. Safety measures reinforced. Call light within reach. Bed locked and on lowest position. Endorsed to machinist 2nd shift nurse for phuc.
--- NOTE | 2020-02-19 19:30 | NUR ---
GEODESY TEACHER NOTES RECEIVED ON BED A/O X1,WAVE HIS HANDS WHEN CALLING HIS NAME.PRESENT IVF 1/2 NS 75ML/HR RATE INFUSING ON RIGHT FOREARM VIA IV PUMP,SITE PATENT.DONIS CATH IN PLACE DRAINING YELLOWISH OUTPUT.WITH GT FEEDING OF GLUCERNA TA 65ML/HR RATE.NOTED 5ML RESIDUAL VOLUME.HOB ELEVATED FOS ASPIRATION PRECAUTION.ISOLATION PRECAUTION FOR COVID TEST,PENDING RESULT.NOTED PRODUCTIVE COUGH,OFFERED TO SUCTION BUT REFUSED.CALL LIGHT IN REACH,NEEDS ANTICIPATED. Addendum: 02/19/20 at 2004 by AUSTEN VÁSQUEZ RN WRONG ENTRY OF NOTES,NOT FOR THIS PATIENT
--- NOTE | 2020-02-19 19:45 | NUR ---
MS RN NOTES RECEIVED ON BED,NON VERBAL,OPEN EYES.BREATHING NON LABORED O2 IN USED AT 5L/NC TO KEEP O2 SAT ABOVE 90%.DNR/DNI STATUS.DONIS CATH PLACE DRAINING YELLOWISH OUTPUT.WITH GT FEEDING OF GLUCERNA AT 60ML/HR RATE, GT SITE DRESSING INTACT AND DRY.NO RESIDUAL VOLUME NOTED,HOB ELEVATED.ON SPECIALTY MATTRESS FOR WOUND MANAGEMENT.ISOLATION PRECAUTION FOR MRSA NARES AND COVID 19 POSITIVE.WILL CONTINUE TO MONITOR STATUS.
[2020-02-19 20:00] VITALS: BP 94/35
[2020-02-19] MEDS: ATORVASTATIN 40 MG TABLET GT SCH (20:57)
--- NOTE | 2020-02-19 21:55 | NUR ---
MS RN NOTES DR INIGUEZ MADE AWARE OF PATIENT TEMPERATURE,WITH ORDER FOR TYLENOL 650MG/GT NEEDED FOR FEVER NOTED AND CARRIED OUT.
[2020-02-19] MEDS: ACETAMINOPHEN 650 MG/20.3 ML UDC NG PRN (22:12)
--- NOTE | 2020-02-19 22:12 | NUR ---
MS RN NOTES MEDICATED WITH TYLENOL 650MG/GT FOR AXILLARY TEMP OF 101.3COOLING MEASURES INITIATED.
[2020-02-20] VITALS (8 sets, daily range): BP systolic 81–149; BP diastolic 34–71
--- NOTE | 2020-02-20 | NUR ---
MS RN NOTES TEMP RE CHECK 99.0 AXILLARY. BP 81/56
--- NOTE | 2020-02-20 | NUR ---
MS RN NOTES ACCU-CHECK BLOOD SUGAR CHECK 153,COVERED WITH HUMULIN R 2UNITS PER SLIDING SCALE.GT FEEDING IN PROGRESS AT 60ML/HR RATE.
[2020-02-20] MEDS: CEFEPIME 2 GM in IV D5W 100 ML IV SCH ×2 (00:36→12:37)
--- NOTE | 2020-02-20 00:45 | NUR ---
MS RN NOTES BP CUFF CHANGED,BP RE CHECKED 124/34,PULSE 70.
--- NOTE | 2020-02-20 03:45 | NUR ---
MS RN NOTES MORNING CARE RENDERED.DRESSING CHANGED DONE TO SACRAL WOUND,LEFT STUMP AND RIGHT HEEL.REPOSITION PER PROTOCOL.
[2020-02-20] MEDS: METOCLOPRAMIDE HCL 10 MG TABLET GT SCH ×3 (04:39→21:01)
[2020-02-20] MEDS: BLOOD SUGAR DIAGNOSTIC 1 EACH STRIP IN SCH ×3 (05:09→17:30)
--- NOTE | 2020-02-20 05:20 | NUR ---
MS RN NOTES ACCU-CHECK BLOOD SUGAR CHECK 97,NO INSULIN COVERAGE.
--- NOTE | 2020-02-20 06:05 | NUR ---
WOOD FLOORING SPECIALIST NOTES SR-67 ON TELE MONITOR,ON BED A/O X1-2.GT FEEDING IN PROGRESS.STILL WITH ON AND OFF PRODUCTIVE COUGH.REFUSED INHALER.REFUSED TO BE SUCTION.SECOND COVID TEST NOT RESULTED YET.IN NO ACUTE DISTRESS. Addendum: 02/20/20 at 0609 by AUSTEN VÁSQUEZ RN WRONG ENTRY OF NOTES,NOT FOR THIS PATIENT
--- NOTE | 2020-02-20 06:10 | NUR ---
MS RN NOTES ON BED,NON VERBAL.GT FEEDING IN PROGRESS,TOLERATED WELL.NO N/V/D NOTED.MIDLINE REMAINS PATENT ON LEFT UPPER ARM.LATEST BP 149/58,P-86,RR-19, TEMP-98.5,O2 SAT 97%.DNR/DNI STATUS.POSITIVE COVID 19.IN NO ACUTE DISTRESS.
[2020-02-20 06:54] LABS: BASOPHILS % (AUTO) 0.3 % (0.0-2.0); EOSINOPHILS % (AUTO) 7.2 % (0.0-6.0); HEMATOCRIT 28 % (39-51); HEMOGLOBIN 8.4 g/dL (13.5-17.5); LYMPHOCYTES # (AUTO) 1.4 /CMM (0.8-4.8); MEAN CORPUSCULAR HGB CONC 30 g/dl (31.0-36.0); MEAN CORPUSCULAR VOLUME 99 fL (80-96); MONOCYTES # (AUTO) 0.8 /CMM (0.1-1.30); MONOCYTES % (AUTO) 6.1 % (2.0-12.0); NEUTROPHILS # (AUTO) 10.5 /CMM (1.8-8.9); NEUTROPHILS % (AUTO) 76.4 % (43.0-81.0); PLATELET COUNT (AUTO) 312 /CMM (150-450); RED BLOOD CELL COUNT(AUTO) 2.81 MIL/uL (4.5-6.0); WHITE BLOOD COUNT (AUTO) 13.8 K/uL (4.3-11.0)
[2020-02-20 07:01] LABS: CALCIUM, SERUM 8.7 mg/dL (8.5-10.1); CREATININE 0.8 mg/dL (0.6-1.3); POTASSIUM 4.6 mmol/L (3.5-5.1)
[2020-02-20 07:09] LABS: IRON, SERUM 13 ug/dl (50-175); TOTAL IRON BINDING CAPACITY 92 ug/dl (250-450)
[2020-02-20 07:16] LABS: FERRITIN 735 ng/mL (8-388)
[2020-02-20] MEDS: SUCRALFATE 1 G/10 ML UDC GT SCH ×2 (08:17→16:15)
[2020-02-20] MEDS: ZINC SULFATE 220 MG CAPSULE GT SCH (08:18)
[2020-02-20] MEDS: BACLOFEN (10 MG) 10 MG TABLET GT SCH ×2 (08:18→16:16)
[2020-02-20] MEDS: LINAGLIPTIN 5 MG TABLET PO SCH (08:18)
[2020-02-20] MEDS: APIXABAN 5 MG TABLET PO SCH ×2 (08:19→16:17)
[2020-02-20] MEDS: AMIODARONE HCL 200 MG TABLET PO SCH ×2 (08:20→21:01)
[2020-02-20] MEDS: PANTOPRAZOLE 40 MG VIAL IV SCH (08:20)
[2020-02-20] MEDS: METOPROLOL TARTRATE 25 MG TABLET GT SCH ×2 (08:20→16:44)
[2020-02-20] MEDS: ACETAMINOPHEN 650 MG/20.3 ML UDC GT SCH (08:21)
[2020-02-20] MEDS: DAKINS QUARTER STRENGTH (0.125%) 480 ML BOTTLE TOP SCH (08:23)
[2020-02-20] MEDS: CLOTRIMAZOLE 1% 15 GM TUBE TP SCH ×2 (08:24→17:30)
[2020-02-20] MEDS: PROSOURCE / PROSTAT (PYXIS) 30 ML UDC GT SCH ×3 (08:25→16:53)
[2020-02-20] MEDS: Z GUARD REMEDY 2 OZ OINT TP SCH (08:25)
--- NOTE | 2020-02-20 09:05 | NUR ---
RN OPENING NOTES: RECEIVED PT AT BED, RESTING CALM, A&O X 1. PATIENT ON ISOLATION FOR POSITIVE COVID AND MRSA. ON 3L OXYGEN WITH HUMIDIFIER WITH NC TOLERATING WELL. NO SOB, NO DISTRESS NOTED. TK MIDLINE PATENT AND FLUSHING. MULTIPLE DRESSINGS IN PLACE NOTED, SACRUM, LEFT AKA AND RIGHT HIP WITH MEPELEX, ARE INTACT AND CLEAN. DONIS CATH IS IN PLACE DRAINING CLOUDY YELLOW NOTED WITH SEDIMENTS IN THE URINE DRAINING IN GRAVITY. G-TUBE FEEDING OF GLUCEMA RUNNING @ 60 ML/HR TOLERATING WELL, NO RESIDUAL NOTED. SAFETY MEASURES IN PLACE. CALL LIGHT IN REACH, BED IN LOWEST POSITION, SIDE RAILS X 2 UP APPROPRIATE, NO S/S OF DISTRESS NOTED, NEEDS ATTENDED. WILL CONTINUE TO MONITOR.
[2020-02-20] MEDS: VANCOMYCIN 0.75 GM in IV D5W 250 ML IV SCH (09:29)
[2020-02-20] MEDS: INSULIN REGULAR, HUMAN 100 UNIT/ML 3 ML VIAL SQ PRN ×2 (13:30→17:30)
--- NOTE | 2020-02-20 15:00 | NUR ---
RN NOTE Patient is resisting being suctioned and refusing oral care. Tried 3 times explained risk and benefits.
[2020-02-20] MEDS: INSULIN GLARGINE, 100 UNIT/ML CARTRIDGE SQ SCH (16:53)
[2020-02-20] MEDS: ASCORBIC ACID 500 MG TABLET GT SCH (17:02)
[2020-02-20] MEDS: DOCUSATE SODIUM LIQ 100 MG/10 ML UDC GT SCH (17:02)
--- NOTE | 2020-02-20 18:29 | NUR ---
RN CLOSING NOTES PT REMAINS AT BED, RESTING CALM, A&O X 1. PATIENT ON ISOLATION FOR POSITIVE COVID AND MRSA. ON 3L OXYGEN WITH HUMIDIFIER WITH NC TOLERATING WELL O2 IS 96%. NO SOB, NO DISTRESS NOTED. SAFETY MEASURES IN PLACE. CALL LIGHT IN REACH, BED IN LOWEST POSITION, HOB AT 30 DEGREE, SIDE RAILS X 2 UP APPROPRIATE, NO S/S OF DISTRESS NOTED, NEEDS ATTENDED.
--- NOTE | 2020-02-20 19:15 | NUR ---
TELE/RN PATIENT IN NON-VERBAL AND NON ALERT AND NON AMBULATORY. CURRENTLY NOT SHOWING ANY SIGNS OF ANY DISTRESS. PATIENT IS ON 3L OF O2 WITH AEROSOL CURRENTLY SATURATING AT 97% WITH NO SIGNS OF ANY SOB. PATIENT HAS QUIRINO MIDLINE WITH TKO INFUSING. PATIENT HAS GTUBE WITH GLUCERNA RUNNING AT 60CC/HR WITH NO RESIDUAL. ALL SAFETY PRECAUTIONS APPLIED. WILL CONTINUE TO MONITOR PATIENT THROUGHOUT SHIFT.
[2020-02-20] MEDS: ATORVASTATIN 40 MG TABLET GT SCH (21:01)
[2020-02-21] MEDS: BLOOD SUGAR DIAGNOSTIC 1 EACH STRIP IN SCH ×5 (00:19→23:20)
[2020-02-21] MEDS: CEFEPIME 2 GM in IV D5W 100 ML IV SCH ×2 (00:19→12:09)
[2020-02-21 04:00] VITALS: BP 122/64
[2020-02-21] MEDS: VANCOMYCIN 0.75 GM in IV D5W 250 ML IV SCH ×2 (04:39→22:28)
[2020-02-21] MEDS: METOCLOPRAMIDE HCL 10 MG TABLET GT SCH ×3 (05:11→21:19)
[2020-02-21 06:09] LABS: BASOPHILS % (AUTO) 0.4 % (0.0-2.0); EOSINOPHILS % (AUTO) 7.2 % (0.0-6.0); HEMATOCRIT 24 % (39-51); HEMOGLOBIN 7.6 g/dL (13.5-17.5); LYMPHOCYTES # (AUTO) 1.1 /CMM (0.8-4.8); LYMPHOCYTES % (AUTO) 10.2 % (20.0-44.0); MEAN CORPUSCULAR HGB CONC 31 g/dl (31.0-36.0); MEAN CORPUSCULAR VOLUME 97 fL (80-96); MONOCYTES # (AUTO) 0.6 /CMM (0.1-1.30); MONOCYTES % (AUTO) 6.2 % (2.0-12.0); NEUTROPHILS # (AUTO) 7.9 /CMM (1.8-8.9); PLATELET COUNT (AUTO) 304 /CMM (150-450); RED BLOOD CELL COUNT(AUTO) 2.51 MIL/uL (4.5-6.0); WHITE BLOOD COUNT (AUTO) 10.4 K/uL (4.3-11.0)
[2020-02-21 06:44] LABS: CALCIUM, SERUM 8.5 mg/dL (8.5-10.1); CREATININE 0.9 mg/dL (0.6-1.3); POTASSIUM 4.3 mmol/L (3.5-5.1)
--- NOTE | 2020-02-21 06:54 | NUR ---
TELE/RN PATIENT SHOWING NO SIGNS OF DISTRESS. ON 3L OF 02 NS SATURATING AT 96%. PATIENT QUIRINO MIDLINE IS PATENT WITH TKO INFUSING. GTUBE FEEDING RUNNING WITH GLUCERNA AT 60CC/HR WITH NO RESIDUAL. ALL NEEDS MET. WOUND CARE APPLIED. WILL ENDORSE TO MORNING SHIFT NURSE FOR BATOOL.
--- NOTE | 2020-02-21 07:30 | NUR ---
RN OPENING NOTE RECEIVED PATIENT FROM PM NURSE. PATIENT IS A/O X2, ON ROOM AIR SATURATING WELL. O2 SATURATION AT 97%, NO SIGNS AND SYMPTOMS OF RESPIRATORY DISTRESS NOTED. BREATHING IS EVEN AND UNLABORED. PATIENT HAS A DONIS IN PLACE, INTACT, AND DRAINING URINE. G TUBE FEEDING IS RUNNING ORDERED, PATIENT TOLERATING WELL, NO RESIDUAL NOTED. PATIENT IS RUNNING 1/2L NS AT 75CC/HR. IV SITE INTACT, PATENT, AND FLUSHED WELL. RECEIVED ORDERS TO TRANSFER PATIENT TO [address] [place] [address]. WILL TRANSFER PATIENT WHEN NURSE IS READY. SAFETY MAINTAINED, CALL LIGHT WITHIN REACH, WILL CONTINUE TO MONITOR. Addendum: 02/21/20 at 0822 by POONAM CRUZ RN wrong patient documented. disregard note
[2020-02-21 08:00] VITALS: BP 117/87
[2020-02-21] MEDS: SUCRALFATE 1 G/10 ML UDC GT SCH ×2 (09:00→17:12)
[2020-02-21] MEDS: APIXABAN 5 MG TABLET PO SCH ×2 (09:00→17:00)
--- NOTE | 2020-02-21 09:00 | NUR ---
RN NOTE HELD PATIENTS ELIQUIS DUE TO PATIENT HEMOGLOBIN DECLINING AND AT LEVEL 7.6 TODAY. CONSULTED THE CHARGE NURSE, OK TO HOLD. SAFETY MAINTAINED, CALL LIGHT WITHIN REACH, WILL CONTINUE TO MONITOR.
[2020-02-21] MEDS: AMIODARONE HCL 200 MG TABLET PO SCH ×2 (09:01→21:19)
[2020-02-21] MEDS: METOPROLOL TARTRATE 25 MG TABLET GT SCH ×2 (09:01→17:00)
[2020-02-21] MEDS: ZINC SULFATE 220 MG CAPSULE GT SCH (09:01)
[2020-02-21] MEDS: PANTOPRAZOLE 40 MG VIAL IV SCH (09:01)
[2020-02-21] MEDS: ACETAMINOPHEN 650 MG/20.3 ML UDC GT SCH (09:01)
[2020-02-21] MEDS: LINAGLIPTIN 5 MG TABLET PO SCH (09:02)
[2020-02-21] MEDS: BACLOFEN (10 MG) 10 MG TABLET GT SCH ×2 (09:02→17:12)
[2020-02-21] MEDS: DAKINS QUARTER STRENGTH (0.125%) 480 ML BOTTLE TOP SCH (09:02)
[2020-02-21] MEDS: Z GUARD REMEDY 2 OZ OINT TP SCH (09:03)
[2020-02-21] MEDS: CLOTRIMAZOLE 1% 15 GM TUBE TP SCH ×2 (09:03→17:13)
[2020-02-21] MEDS: PROSOURCE / PROSTAT (PYXIS) 30 ML UDC GT SCH ×3 (09:03→17:13)
--- NOTE | 2020-02-21 10:15 | NUR ---
RN OPENING NOTES RECEIVED PATIENT RESTING IN BED. PATIENT IS A/O X0, NONVERBAL, OPENS EYES. PATIENT IS ON O2, PLACED ON 3L VIA NC, SATURATING WELL, NO RESPIRATORY DISTRESS NOTED. PATIENT HAS A DONIS CATHETER IN PLACE, INTACT AND DRAINING URINE. G TUBE IS IN PLACE, FEEDING IS RUNNING ORDERED. TOLERATING WELL, NO RESIDUAL NOTED. G TUBE IS PATENT AND FLUSHED WELL. QUIRINO MIDLINE IS INTACT, PATENT, AND FLUSHED WELL. NO S.S OF INFECTION NOTED. TKO IS RUNNING. VITAL SIGNS ARE STABLE, PATIENT IS AFEBRILE AT THE MOMENT. PENDING 72HRS WITH [facility] FEVER [facility] ALL PATIENT NEEDS ARE MET, CALL LIGHT WITHIN REACH, WILL CONTINUE TO MONITOR CLOSELY.
[2020-02-21 12:00] VITALS: BP 74/18
[2020-02-21] MEDS: INSULIN REGULAR, HUMAN 100 UNIT/ML 3 ML VIAL SQ PRN ×2 (12:34→23:21)
[2020-02-21] MEDS ORDERED: IV NS 0.9% 500 ML BAG IV ONE (13:00)
--- NOTE | 2020-02-21 13:00 | NUR ---
RN NOTES PATIENT BP IS 74/18, VERIFIED WITH MANUAL CUFF. NOTIFIED DR INIGUEZ. ORDERED 500MLS NS BOLUS, ORDER FOLLOWED. MONITORING BP CLOSELY. PATIENT IS DNR/DNI, FAMILY PREFERS COMFORT CARE. SAFETY MAINTAINED, CALL LIGHT WITHIN REACH, WILL CONTINUE TO MONITOR.
[2020-02-21] MEDS: GLUCERNA 1.2 1,000 ML BOTTLE GT PRN (15:28)
[2020-02-21 16:00] VITALS: BP 148/55
[2020-02-21] MEDS: DOCUSATE SODIUM LIQ 100 MG/10 ML UDC GT SCH (17:12)
[2020-02-21] MEDS: ASCORBIC ACID 500 MG TABLET GT SCH (17:12)
[2020-02-21] MEDS: INSULIN GLARGINE, 100 UNIT/ML CARTRIDGE SQ SCH (17:35)
--- NOTE | 2020-02-21 19:27 | NUR ---
RN CLOSING NOTES PATIENT BP HAS BEEN STABLE SINCE GIVING THE BOLUS. LAST BP WAS 148/55. NO OTHER CHANGES TO PATIENT CONDITION DURING MY SHIFT. PAMELA OFFICE SYSTEM ANALYST PUT NEW ORDERS FOR WOUND CULTURE AND URINE CULTURE, ENDORSED TO PM NURSE TO COLLECT. PATIENT SAFETY WAS MAINTAINED, CALL LIGHT WITHIN REACH, ENDORSED TO PM NURSE FOR CONTINUITY OF CARE.
--- NOTE | 2020-02-21 19:50 | NUR ---
RN NOTES RECEIVED REPORT FROM SARAH ARMAS. PATIENT IN BED, NONVERBAL, OPENS EYES. ON OXYGEN 3L VIA NC, SATURATING WELL, NO RESPIRATORY DISTRESS NOTED. QUIRINO MIDLINE FLUSHING AND PATENT, ON TKO, SITE C/D/I. DONIS CATHETER IN PLACE, INTACT AND DRAINING WELL. G TUBE IN PLACE, FEEDING RUNNING ORDERED, TOLERATING WELL, NO RESIDUAL NOTED, MINIMAL LEAKING AROUND THE SITE NOTED, DRESSING CHANGED. SAFETY MEASURES IN PLACE; CALL LIGHT WITHIN REACH, SIDE RAILS UP X2, HOB ELEVATED, BED LOCKED AND IN LOW POSITION. WILL CONT TO MONITOR.
[2020-02-21 20:00] VITALS: BP 128/68
[2020-02-21] MEDS ORDERED: MEROPENEM 500 MG in IV NS 0.9% 50 ML IV SCH (21:00)
[2020-02-21] MEDS: MEROPENEM 1 G in IV NS 0.9% 100 ML IV SCH (21:19)
[2020-02-21] MEDS: ATORVASTATIN 40 MG TABLET GT SCH (21:19)
[2020-02-22] VITALS: BP 122/58
[2020-02-22 04:00] VITALS: BP 120/77
[2020-02-22] MEDS: METOCLOPRAMIDE HCL 10 MG TABLET GT SCH ×3 (05:25→20:35)
[2020-02-22] MEDS: BLOOD SUGAR DIAGNOSTIC 1 EACH STRIP IN SCH ×3 (05:59→17:24)
--- NOTE | 2020-02-22 06:39 | NUR ---
RN NOTES COVID19 RESULT CALLED BY MIKEL STATED INDETERMINATE. CN MADE AWARE. WILL ENDORSE TO AM RN.
--- NOTE | 2020-02-22 07:00 | NUR ---
RN NOTES NO ACUTE CHANGES THROUGHOUT SHIFT. KEPT PATIENT CLEAN, DRY, AND COMFORTABLE. COVID19 SWAB RESULT INDETERMINATE. IV SITE STILL INTACT AND PATENT. SAFETY MEASURES MAINTAINED. ISOLATION PRECAUTIONS MAINTAINED. ALL MD ORDERS ATTENDED. ENDORSED TO SARAH SAINZ FOR BATOOL.
[2020-02-22 08:00] VITALS: BP 120/72
--- NOTE | 2020-02-22 08:00 | NUR ---
RN OPENING NOTES RECEIVED PATIENT RESTING IN BED. PATIENT IS A/O X0, NONVERBAL, OPENS EYES. PATIENT IS ON O2, PLACED ON 3L VIA NC, SATURATING WELL, NO RESPIRATORY DISTRESS NOTED. PATIENT HAS A DONIS CATHETER IN PLACE, INTACT AND DRAINING URINE. G TUBE IS IN PLACE, FEEDING IS RUNNING ORDERED 60ML/HR. TOLERATING WELL, NO RESIDUAL NOTED. G TUBE IS PATENT AND FLUSHED WELL. QUIRINO MIDLINE IS INTACT, PATENT, AND FLUSHED WELL. NO S/S OF INFECTION NOTED. TKO IS RUNNING. VITAL SIGNS ARE STABLE, PATIENT IS AFEBRILE AT THE MOMENT. WILL CONTINUE TO MONITOR.
[2020-02-22 08:13] LABS: BASOPHILS % (AUTO) 0.2 % (0.0-2.0); EOSINOPHILS % (AUTO) 6.1 % (0.0-6.0); HEMATOCRIT 25 % (39-51); HEMOGLOBIN 7.7 g/dL (13.5-17.5); LYMPHOCYTES # (AUTO) 0.7 /CMM (0.8-4.8); LYMPHOCYTES % (AUTO) 7.4 % (20.0-44.0); MEAN CORPUSCULAR HGB CONC 31 g/dl (31.0-36.0); MEAN CORPUSCULAR VOLUME 97 fL (80-96); MONOCYTES # (AUTO) 0.5 /CMM (0.1-1.30); MONOCYTES % (AUTO) 5.3 % (2.0-12.0); NEUTROPHILS # (AUTO) 7.7 /CMM (1.8-8.9); PLATELET COUNT (AUTO) 351 /CMM (150-450); RED BLOOD CELL COUNT(AUTO) 2.53 MIL/uL (4.5-6.0); WHITE BLOOD COUNT (AUTO) 9.5 K/uL (4.3-11.0)
[2020-02-22 08:37] LABS: CALCIUM, SERUM 8.2 mg/dL (8.5-10.1); CREATININE 0.8 mg/dL (0.6-1.3); POTASSIUM 5.1 mmol/L (3.5-5.1)
[2020-02-22] MEDS: ACETAMINOPHEN 650 MG/20.3 ML UDC GT SCH (09:22)
[2020-02-22] MEDS: APIXABAN 5 MG TABLET PO SCH ×2 (09:22→17:22)
[2020-02-22] MEDS: METOPROLOL TARTRATE 25 MG TABLET GT SCH ×2 (09:23→17:18)
[2020-02-22] MEDS: ZINC SULFATE 220 MG CAPSULE GT SCH (09:23)
[2020-02-22] MEDS: LINAGLIPTIN 5 MG TABLET PO SCH (09:23)
[2020-02-22] MEDS: SUCRALFATE 1 G/10 ML UDC GT SCH ×2 (09:23→17:17)
[2020-02-22] MEDS: BACLOFEN (10 MG) 10 MG TABLET GT SCH ×2 (09:24→17:17)
[2020-02-22] MEDS: AMIODARONE HCL 200 MG TABLET PO SCH ×2 (09:24→20:35)
[2020-02-22] MEDS: PANTOPRAZOLE 40 MG VIAL IV SCH (09:24)
[2020-02-22] MEDS: MEROPENEM 1 G in IV NS 0.9% 100 ML IV SCH ×2 (09:26→20:35)
[2020-02-22] MEDS: GLUCERNA 1.2 1,000 ML BOTTLE GT PRN (09:34)
[2020-02-22] MEDS: PROSOURCE / PROSTAT (PYXIS) 30 ML UDC GT SCH ×3 (09:36→17:18)
[2020-02-22] MEDS: Z GUARD REMEDY 2 OZ OINT TP SCH (09:37)
[2020-02-22] MEDS: DAKINS QUARTER STRENGTH (0.125%) 480 ML BOTTLE TOP SCH (09:38)
[2020-02-22] MEDS: CLOTRIMAZOLE 1% 15 GM TUBE TP SCH ×2 (09:39→17:19)
--- NOTE | 2020-02-22 10:36 | NUR ---
the last swab test results for the patient are indeterminate. the Dr has been notified.
[2020-02-22 12:00] VITALS: BP 124/70
[2020-02-22 12:31] LABS: FERRITIN 575 ng/mL (8-388); IRON, SERUM 12 ug/dl (50-175); TOTAL IRON BINDING CAPACITY 66 ug/dl (250-450)
--- NOTE | 2020-02-22 14:00 | NUR ---
Wound care and dressing change was performed on the patient. Wound dressing change was performed on the sacral, hips, left leg, and upper back.
--- NOTE | 2020-02-22 14:26 | NUR ---
A swab for wound culture from buttock, and a second from the left leg wound has been collected and sent to the lab. An oral swab was collected for a covid retest.
[2020-02-22] MEDS: DOCUSATE SODIUM LIQ 100 MG/10 ML UDC GT SCH (17:17)
[2020-02-22] MEDS: ASCORBIC ACID 500 MG TABLET GT SCH (17:17)
[2020-02-22] MEDS: INSULIN GLARGINE, 100 UNIT/ML CARTRIDGE SQ SCH (17:22)
--- NOTE | 2020-02-22 18:43 | NUR ---
RN CLOSING NOTES RECEIVED PATIENT RESTING IN BED. PATIENT IS A/O X0, NONVERBAL, OPENS EYES. VS ARE WNL. PATIENT IS ON O2, PLACED ON 3L VIA NC, SATURATING WELL, NO RESPIRATORY DISTRESS NOTED. PATIENT HAS A DONIS CATHETER IN PLACE AND DRAINING WELL. G TUBE IS IN PLACE, FEEDING IS RUNNING AT 60ML/HR. TOLERATING WELL, NO RESIDUAL NOTED. TUBE IS PATENT AND FLUSHED WELL. QUIRINO MIDLINE IS IS FLUSHING WELL. NO S/S OF INFECTION NOTED. TKO IS RUNNING AT 10ML/HR ON NS. PT IS AFEBRILE AT THE MOMENT. WILL ENDORSE THE INCOMING SHIFT.
--- NOTE | 2020-02-22 19:15 | NUR ---
RN NOTES RECEIVED REPORT FROM SARAH SAINZ. PATIENT IN BED, NONVERBAL, OPENS EYES. ON OXYGEN 3L VIA NC, SATURATING WELL, NO RESPIRATORY DISTRESS NOTED. QUIRINO MIDLINE FLUSHING AND PATENT, ON TKO, SITE C/D/I. DONIS CATHETER IN PLACE, INTACT AND DRAINING WELL. G TUBE IN PLACE, FEEDING RUNNING ORDERED, TOLERATING WELL, NO RESIDUAL NOTED, MINIMAL LEAKING AROUND THE SITE NOTED, DRESSING CHANGED. SAFETY MEASURES IN PLACE; CALL LIGHT WITHIN REACH, SIDE RAILS UP X2, HOB ELEVATED, BED LOCKED AND IN LOW POSITION. ISOLATION PRECAUTION MAINTAINED. WILL CONT TO MONITOR.
[2020-02-22 20:00] VITALS: BP 102/44
--- NOTE | 2020-02-22 20:36 | NUR ---
RN NOTES AMIODARONE 400MG HELD PER PROTOCOL AND DUE TO DECREASED HR 58. WILL CONT TO MONITOR.
--- NOTE | 2020-02-22 20:46 | NUR ---
RN NOTES PATIENT SATURATING 99% HOWEVER NOTED WITH LABORED BREATHING AND SOUNDS VERY CONGESTED/WET. RESPIRATORY THERAPIST MADE AWARE, DEEP SUCTION DONE AND NOTED WITH APPROXIMATELY 20ML OF SPUTUM SUCTIONED OUT. NO SOB OR RESPIRATORY DISTRESS NOTED AT THE MOMENT. WILL CONT TO MONITOR.
[2020-02-22] MEDS ORDERED: VANCOMYCIN 1 GM VIAL ONE (21:25)
[2020-02-22] MEDS: VANCOMYCIN 0.75 GM in IV D5W 250 ML IV SCH (21:34)
[2020-02-22] MEDS: ATORVASTATIN 40 MG TABLET GT SCH (21:37)
[2020-02-23] MEDS: BLOOD SUGAR DIAGNOSTIC 1 EACH STRIP IN SCH ×4 (00:08→17:25)
[2020-02-23 04:00] VITALS: BP 99/63
[2020-02-23] MEDS: METOCLOPRAMIDE HCL 10 MG TABLET GT SCH ×3 (05:08→20:28)
[2020-02-23] MEDS: ACETAMINOPHEN 650 MG/20.3 ML UDC NG PRN (05:08)
--- NOTE | 2020-02-23 07:19 | NUR ---
RN NOTES NO ACUTE CHANGES THROUGHOUT SHIFT. TMAX 99.3, TYLENOL GIVEN, RECHECKED TEMP 99 VIA AXILLARY. KEPT PATIENT CLEAN, DRY, AND COMFORTABLE. COVID19 RESWAB PENDING. IV SITE STILL INTACT AND PATENT. SAFETY MEASURES MAINTAINED. ISOLATION PRECAUTIONS MAINTAINED. ALL MD ORDERS ATTENDED. ENDORSED TO AM RN FOR BATOOL. Addendum: 02/23/20 at 0742 by VINCENT HITCHCOCK RN ENDORSED TO AM RN BLOOD CX GRAM POSITIVE COCCI
[2020-02-23] MEDS: GLUCERNA 1.2 1,000 ML BOTTLE GT PRN (07:24)
--- NOTE | 2020-02-23 07:30 | NUR ---
RN opening note: Received patient in bed. Awake, alert and non verbal. On cont. 02 via NC @ 3lpm, no SOB and not in distress. Isolation precaution for COVID-[address] IV site clean, dry, patent and intact. IV infusion being tolerated well. GT in place with feeding of GLucerna 1.2 @ 60mls/hr running and being tolerated well. No pain noted on patient. Reyes catheter draining yellow urine. Call light in reach. Bed locked, low and at semi-marcelo's position. Side rails upx3. Safety ensured and observed. Will continue to monitor.
[2020-02-23 07:38] LABS: CALCIUM, SERUM 8.2 mg/dL (8.5-10.1); CREATININE 0.8 mg/dL (0.6-1.3); POTASSIUM 4.6 mmol/L (3.5-5.1)
[2020-02-23 08:00] VITALS: BP_SYST 92; BP_DIAS 43; BP_DIAS 53
[2020-02-23] MEDS: ACETAMINOPHEN 650 MG/20.3 ML UDC GT SCH (08:30)
[2020-02-23] MEDS: METOPROLOL TARTRATE 25 MG TABLET GT SCH ×3 (08:33→17:00)
[2020-02-23] MEDS: SUCRALFATE 1 G/10 ML UDC GT SCH ×2 (08:33→16:51)
[2020-02-23] MEDS: ZINC SULFATE 220 MG CAPSULE GT SCH (08:35)
[2020-02-23] MEDS: BACLOFEN (10 MG) 10 MG TABLET GT SCH ×2 (08:35→16:51)
[2020-02-23] MEDS: AMIODARONE HCL 200 MG TABLET PO SCH ×2 (08:38→22:10)
[2020-02-23] MEDS: LINAGLIPTIN 5 MG TABLET PO SCH (08:39)
[2020-02-23] MEDS: PANTOPRAZOLE 40 MG VIAL IV SCH (08:39)
[2020-02-23] MEDS: APIXABAN 5 MG TABLET PO SCH ×2 (08:40→17:01)
[2020-02-23] MEDS: MEROPENEM 1 G in IV NS 0.9% 100 ML IV SCH ×2 (08:41→20:29)
[2020-02-23] MEDS: PROSOURCE / PROSTAT (PYXIS) 30 ML UDC GT SCH ×3 (08:42→16:50)
[2020-02-23] MEDS: DAKINS QUARTER STRENGTH (0.125%) 480 ML BOTTLE TOP SCH (08:43)
[2020-02-23] MEDS: CLOTRIMAZOLE 1% 15 GM TUBE TP SCH ×2 (08:44→17:24)
[2020-02-23] MEDS: Z GUARD REMEDY 2 OZ OINT TP SCH (08:45)
--- NOTE | 2020-02-23 09:00 | NUR ---
Rn Note: Scheduled Metoprolol 25 mg, unable to return due to package opened. Medications discarded with SARAH Doyle as witness.
[2020-02-23 16:00] VITALS: BP_SYST 107; BP_SYST 97; BP_DIAS 49; BP_DIAS 56
[2020-02-23 16:54] LABS: OCCULT BLOOD STOOL NEGATIVE (NEGATIVE)
[2020-02-23] MEDS: DOCUSATE SODIUM LIQ 100 MG/10 ML UDC GT SCH (17:02)
[2020-02-23] MEDS: ASCORBIC ACID 500 MG TABLET GT SCH (17:04)
[2020-02-23] MEDS: INSULIN GLARGINE, 100 UNIT/ML CARTRIDGE SQ SCH (17:27)
--- NOTE | 2020-02-23 19:20 | NUR ---
RN OPENING NOTES RECEIVED PATIENT IN BED RESTING ALERT ORIENTED X1 NONVERBAL BREATHING IS EVEN AND UNLABORED ON 3L OXYGEN VIA NASAL CANNULA,NO PAIN,NO ACUTE DISTRESS NOTED,IV HYDRATION IS ON LEFT UPPER MID LINE,IV SITE IS INTACT,GT RUNNING GLUCERNA 1.2 60 CC/HR NO RESIDUAL NOTED.SKIN IS WARM TO TOUCH,CONTINUE TO MONITOR.
--- NOTE | 2020-02-23 19:37 | NUR ---
Rn closing note: Patient remains in bed. Awake, alert and non verbal. On cont. 02 via NC @ 3lpm, no SOB and not in distress. Isolation precaution for COVID-[address] IV site clean, dry, patent and intact. IV infusion being tolerated well. GT in place with feeding of GLucerna 1.2 @ 60mls/hr running and being tolerated well. No pain noted on patient. Reyes catheter draining yellow urine. Bed locked, low and at semi-marcelo's position. Side rails upx3. Safety ensured and observed. Due medications given. treatment and wound care given as ordered. Endorsed to oncoming shift for BATOOL.
[2020-02-23 20:00] VITALS: BP 112/52
[2020-02-23] MEDS: VANCOMYCIN 0.75 GM in IV D5W 250 ML IV SCH (22:08)
[2020-02-23] MEDS: ATORVASTATIN 40 MG TABLET GT SCH (22:08)
[2020-02-24] MEDS: BLOOD SUGAR DIAGNOSTIC 1 EACH STRIP IN SCH ×4 (01:33→17:34)
[2020-02-24] MEDS: INSULIN REGULAR, HUMAN 100 UNIT/ML 3 ML VIAL SQ PRN ×3 (01:35→17:38)
[2020-02-24 04:00] VITALS: BP 107/40
[2020-02-24] MEDS: METOCLOPRAMIDE HCL 10 MG TABLET GT SCH ×3 (04:33→21:03)
[2020-02-24] MEDS: ACETAMINOPHEN 650 MG/20.3 ML UDC NG PRN ×2 (05:01→21:05)
--- NOTE | 2020-02-24 06:42 | NUR ---
RN CLOSING NOTE PATIENT REMAINS ALERT DISORIENTED,NONVERBAL OPEN EYES TO VOICE. CONFUSED,BREATHING IS EVEN AND UNLABORED NO PAIN NO ACUTE DISTRESS NOTED,HE IS OXYGEN 3L/HR VIA NASAL CANUULA,ON G-TUBE FEEDING GLUCERNA 1.2 60CC/HR FOR 24 HOURS,ALL DUE MEDS GIVEN VIA G-TUBE MD ORDERED TOLERATED,KEPT CLEAN AND DRY ALL THE TIME,IV LINE IS ON LEFT UPPER ARM,IV SITE IS INTACT,SKIN IS WARM TO TOUCH,BILATERAL UPPER EXTREMITIES EDEMA +2.WILL ENDORSE COMING SHIFT FOR CONTINUATION OF CARE.
[2020-02-24 06:48] LABS: CALCIUM, SERUM 8.2 mg/dL (8.5-10.1); CREATININE 0.9 mg/dL (0.6-1.3); POTASSIUM 4.7 mmol/L (3.5-5.1)
[2020-02-24 08:00] VITALS: BP 121/46
--- NOTE | 2020-02-24 08:00 | NUR ---
RN OPENING NOTE RECEIVED PATIENT IN BED SLEEPING.PT IS NONVERBAL. BREATHING IS EVEN AND UNLABORED ON 3L OXYGEN VIA NC,NO S/S OF NO ACUTE DISTRESS NOTED,IV IS ON LEFT UPPER ARM,IV SITE IS INTACT,GT RUNNING GLUCERNA 1.2 60 ML/HR NO RESIDUAL NOTED.SAFETY MEASURES IN PLACE BED AT LOWEST POSITION, LOCKED BED ALARM ON, CALL LIGHT WITHIN REACH. CONTINUE TO MONITOR.
[2020-02-24] MEDS: APIXABAN 5 MG TABLET PO SCH ×2 (08:38→17:08)
[2020-02-24] MEDS: SUCRALFATE 1 G/10 ML UDC GT SCH ×2 (08:38→17:02)
[2020-02-24] MEDS: BACLOFEN (10 MG) 10 MG TABLET GT SCH ×2 (08:39→17:04)
[2020-02-24] MEDS: METOPROLOL TARTRATE 25 MG TABLET GT SCH ×2 (08:40→17:03)
[2020-02-24] MEDS: PANTOPRAZOLE 40 MG VIAL IV SCH (08:40)
[2020-02-24] MEDS: LINAGLIPTIN 5 MG TABLET PO SCH (08:40)
[2020-02-24] MEDS: PROSOURCE / PROSTAT (PYXIS) 30 ML UDC GT SCH ×3 (08:42→17:02)
[2020-02-24] MEDS: ZINC SULFATE 220 MG CAPSULE GT SCH (08:47)
[2020-02-24] MEDS: AMIODARONE HCL 200 MG TABLET PO SCH ×2 (08:48→21:01)
[2020-02-24] MEDS: MEROPENEM 1 G in IV NS 0.9% 100 ML IV SCH ×2 (08:48→20:04)
[2020-02-24] MEDS: ACETAMINOPHEN 650 MG/20.3 ML UDC GT SCH (09:00)
[2020-02-24] MEDS: GLUCERNA 1.2 1,000 ML BOTTLE GT PRN (09:22)
[2020-02-24] MEDS: CLOTRIMAZOLE 1% 15 GM TUBE TP SCH ×2 (09:25→17:22)
[2020-02-24] MEDS: DAKINS QUARTER STRENGTH (0.125%) 480 ML BOTTLE TOP SCH (09:25)
[2020-02-24] MEDS: Z GUARD REMEDY 2 OZ OINT TP SCH (09:26)
--- NOTE | 2020-02-24 09:30 | NUR ---
RN NOTE TYLENOL NOT ADMINISTERED, METAL STAMPER NURSE ADMINISTERED COUPLE HOURS PRIOR.
--- NOTE | 2020-02-24 10:59 | NUR ---
RN NOTE MISTAKE WAS MADE BY LAB PT COVID RESULT IS ACTUALLY NEGATIVE. RELAYED INFORMATION TO DR JOHNSON.RESWAB IS OK PER MD 2 NEGATIVE RESULTS ARE NEEDED.
[2020-02-24] MEDS ORDERED: LIDOCAINE 1%-EPI 1:100,000 50 ML VIAL IJ ONE (13:30)
[2020-02-24] MEDS ORDERED: SILVER NITRATE APPLICATOR 1 EA BOX TP ONE (13:30)
--- NOTE | 2020-02-24 14:47 | NUR ---
RN NOTE -CONSENT SIGNED FOR SERIAL DEBRIDEMENT. PHONE CONSENT FROM STEP DAUGHTER LEENA DEE.
[2020-02-24 16:00] VITALS: BP_SYST 121; BP_SYST 129; BP_DIAS 46; BP_DIAS 76
[2020-02-24] MEDS: DOCUSATE SODIUM LIQ 100 MG/10 ML UDC GT SCH (17:24)
[2020-02-24] MEDS: INSULIN GLARGINE, 100 UNIT/ML CARTRIDGE SQ SCH (17:42)
[2020-02-24] MEDS: FLUCONAZOLE (100 MG) 100 MG TABLET PO SCH (18:10)
[2020-02-24] MEDS: ASCORBIC ACID 500 MG TABLET GT SCH (18:10)
--- NOTE | 2020-02-24 18:15 | NUR ---
RN NOTE RECEIVED PATIENT FROM [facility] FOR CONTINUITY OF CARE.
--- NOTE | 2020-02-24 18:15 | NUR ---
RN CLOSING NOTE NO ACUTE CHANGE DURING MY SHIFT. PT REMAINS IN STABLE CONDITION.ENDORSED PT TO [facility] FOR CONTINUITY OF CARE.
--- NOTE | 2020-02-24 19:16 | NUR ---
RN CLOSING NOTES NO ACUTE CHANGES TO PATIENT CONDITION. PLACED NEW DONIS CATHETER PER MD ORDER. ENDORSED TO PM NURSE THAT THERE IS AN ORDER FOR PICC LINE PLACEMENT, PM NURSE WILL OBTAIN CONSENT. NOTIFIED PM NURSE OF RECENT ORDERS FOR WOUND CULTURE AND MID LINE DC ONCE PICC LINE IS PLACED. ALL PATIENT NEEDS WERE MET, CALL LIGHT WITHIN REACH, ENDORSED TO PM NURSE FOR CONTINUITY OF CARE.
--- NOTE | 2020-02-24 19:20 | NUR ---
RN OPENING NOTE RECEIVED PATIENT IN BED RESTING ALERT CONFUSED OPEN EYES NON VERBAL BREATHING IS EVEN AND UNLABORED,RECEIVED MIGUEL BY PREVIOUS SHIFT PATIENT HAS PICC LINE ORDER,CALLED NEXT TO KIN ELENA DEE,GOT VERBAL CONSENT FOR INSERTING PICC LINE WITH NELSON CHARGE NURSE WITNESS,WILL CONTINUE TO MONITOR.
[2020-02-24 20:00] VITALS: BP 116/95
--- NOTE | 2020-02-24 20:00 | NUR ---
RN NOTE PICC LINE INSERTED ON LEFT UPPER ARM,X RAY DONE PLACEMENT CONFIRMED,PATENT,FLUSHED, WITH GOOD BLOOD RETURN.
[2020-02-24] MEDS: ATORVASTATIN 40 MG TABLET GT SCH (21:02)
--- NOTE | 2020-02-24 22:00 | NUR ---
UNABLE TO COLLECT MIDLINE BLOOD CX. ONCE PICC LINE WAS INSERTED. BIRTH ATTENDANT THREW MIDLINE NEEDLE IN RED BIN.
[2020-02-24] MEDS: VANCOMYCIN 0.75 GM in IV D5W 250 ML IV SCH (22:30)
[2020-02-25] VITALS (10 sets, daily range): BP systolic 92–143; BP diastolic 57–81
[2020-02-25] MEDS: BLOOD SUGAR DIAGNOSTIC 1 EACH STRIP IN SCH ×4 (01:03→17:07)
[2020-02-25] MEDS: INSULIN REGULAR, HUMAN 100 UNIT/ML 3 ML VIAL SQ PRN ×2 (01:05→12:07)
[2020-02-25] MEDS: METOCLOPRAMIDE HCL 10 MG TABLET GT SCH ×3 (05:18→21:15)
--- NOTE | 2020-02-25 06:00 | NUR ---
RN NOTE INSULIN NOT ADMINISTERED AT 0600 AM DUE TO BLOOD LETTY WAS 125.
--- NOTE | 2020-02-25 06:24 | NUR ---
RN CLOSING NOTES PATIENT REMAINS IN STABLE CONDITION,ALERT CONFUSED,BREATHING IS EVEN AND UNLABORED NO PAIN NO ACUTE DISTRESS NOTED,ALL DUE MEDS GIVEN VIA G-TUBE FEEDING,HE TOLERATED WELL,KEPT CLEAN AND DRY ALL THE TIME,HEAD OF BED ELEVATED PREVENT ASPIRATION,ALL NEEDS ATTENDED,ENDORSE NEXT COMING SHIFT.
[2020-02-25 06:38] LABS: BILIRUBIN,TOTAL 0.3 mg/dL (0.2-1.0); CALCIUM, SERUM 8.6 mg/dL (8.5-10.1); CREATININE 0.9 mg/dL (0.6-1.3); MAGNESIUM 2.4 mg/dL (1.8-2.4); PHOSPHORUS 3.2 mg/dL (2.5-4.9); TOTAL PROTEIN, SERUM 4.6 g/dL (6.4-8.2)
[2020-02-25 06:40] LABS: ALBUMIN 0.8 g/dL (3.4-5.0)
[2020-02-25 06:52] LABS: BASOPHILS % (AUTO) 0.2 % (0.0-2.0); EOSINOPHILS % (AUTO) 8.5 % (0.0-6.0); HEMATOCRIT 22 % (39-51); LYMPHOCYTES # (AUTO) 1.2 /CMM (0.8-4.8); LYMPHOCYTES % (AUTO) 10.2 % (20.0-44.0); MEAN CORPUSCULAR HGB CONC 30 g/dl (31.0-36.0); MEAN CORPUSCULAR VOLUME 98 fL (80-96); MONOCYTES # (AUTO) 0.8 /CMM (0.1-1.30); MONOCYTES % (AUTO) 7.2 % (2.0-12.0); NEUTROPHILS # (AUTO) 8.4 /CMM (1.8-8.9); NEUTROPHILS % (AUTO) 73.9 % (43.0-81.0); PLATELET COUNT (AUTO) 308 /CMM (150-450); RED BLOOD CELL COUNT(AUTO) 2.24 MIL/uL (4.5-6.0); WHITE BLOOD COUNT (AUTO) 11.3 K/uL (4.3-11.0)
[2020-02-25 06:56] LABS: HEMOGLOBIN 6.6 g/dL (13.5-17.5)
--- NOTE | 2020-02-25 06:58 | NUR ---
RECEIVED CRITICAL LAB RESULTS FOR HGB 6.6. WILL ENDORSED TO MORNING SHIFT NURSED FOR F/U.
--- NOTE | 2020-02-25 08:00 | NUR ---
MS RN NOTE PATIENT IN BED, ALL NEEDS ATTENDED,ON 3L NC NO SOB NOTED WITH G TUBE FEEDING ORDERED TOLERATED WELL , KEEP HOB ELEVATED AT ALL TIME, WITH PICC LINE IN PLACE AND RECTAL FLEXISEALTUBE IN PLACE WITH SOFT BROWN COLOR STOOL NOTED, HG 6.6 DR MAHER NOTIFIED WITH ORDER TO TRANSFUSE 1 UNIT PR[facility]
[2020-02-25] MEDS: MEROPENEM 1 G in IV NS 0.9% 100 ML IV SCH ×2 (08:02→21:15)
[2020-02-25] MEDS: SUCRALFATE 1 G/10 ML UDC GT SCH ×2 (08:02→16:29)
[2020-02-25] MEDS: ACETAMINOPHEN 650 MG/20.3 ML UDC GT SCH (08:02)
[2020-02-25] MEDS: PANTOPRAZOLE 40 MG VIAL IV SCH (08:02)
[2020-02-25] MEDS: AMIODARONE HCL 200 MG TABLET PO SCH ×2 (08:03→21:40)
[2020-02-25] MEDS: LINAGLIPTIN 5 MG TABLET PO SCH (08:03)
[2020-02-25] MEDS: ZINC SULFATE 220 MG CAPSULE GT SCH (08:03)
[2020-02-25] MEDS: FLUCONAZOLE (100 MG) 100 MG TABLET PO SCH (08:04)
[2020-02-25] MEDS: BACLOFEN (10 MG) 10 MG TABLET GT SCH ×2 (08:04→16:28)
[2020-02-25] MEDS: METOPROLOL TARTRATE 25 MG TABLET GT SCH ×2 (08:04→16:29)
[2020-02-25] MEDS: PROSOURCE / PROSTAT (PYXIS) 30 ML UDC GT SCH ×3 (08:05→16:30)
[2020-02-25] MEDS: DAKINS QUARTER STRENGTH (0.125%) 480 ML BOTTLE TOP SCH (08:06)
[2020-02-25] MEDS: APIXABAN 5 MG TABLET PO SCH ×2 (08:07→16:30)
[2020-02-25] MEDS: CLOTRIMAZOLE 1% 15 GM TUBE TP SCH ×4 (08:07→16:31)
[2020-02-25] MEDS: Z GUARD REMEDY 2 OZ OINT TP SCH (08:07)
--- NOTE | 2020-02-25 08:15 | NUR ---
MS RN NOTE CALLED DAUGHTER TELEPHONE CONSENT FOR BLOOD TRANSFUSION OBTAINED
--- NOTE | 2020-02-25 08:21 | NUR ---
MS RN NOTE HOLD [facility]
[2020-02-25 10:30] LABS: BAND % (MANUAL) 3 % (0.0-5.0); EOSINOPHILS % (MANUAL) 12 % (0-4); LYMPHOCYTES % (MANUAL) 6 % (16-48); MONOCYTES % (MANUAL) 8 % (0-11.0); NEUTROPHILS % (MANUAL) 71 (42-76)
--- NOTE | 2020-02-25 10:32 | NUR ---
MS RN NOTE CALLED BLOOD BANK, BLOOD NOT READY YET
--- NOTE | 2020-02-25 12:49 | NUR ---
MS RN NOTE CALLED BLOOD BANK NO BLOOD READY YET
--- NOTE | 2020-02-25 14:54 | NUR ---
MS RN NOTE BLOOD TRANSFUSION STARED ,NO ADVERSE REACTION NOTED
--- NOTE | 2020-02-25 14:56 | NUR ---
MS RN NOTE TRANSFERRED TO ROOM 250, CALLED FAMILY , LEFT A MASSAGE
--- NOTE | 2020-02-25 14:57 | NUR ---
patient family notified transferred to another unit rm. 250.
--- NOTE | 2020-02-25 16:51 | NUR ---
MS RN NOTE ON BLOOD TRANSFUSION 1 UNIT PRBC ,NO ADVERSE REACTION NOTED
[2020-02-25] MEDS: INSULIN GLARGINE, 100 UNIT/ML CARTRIDGE SQ SCH (17:04)
[2020-02-25] MEDS: DOCUSATE SODIUM LIQ 100 MG/10 ML UDC GT SCH (17:08)
[2020-02-25] MEDS: ASCORBIC ACID 500 MG TABLET GT SCH (17:09)
--- NOTE | 2020-02-25 17:40 | NUR ---
MS RN NOTE JESUS RN CAT WAGON OPERATOR ID AWARE THAT BLOOD CX CLUBCELLA [place]
--- NOTE | 2020-02-25 17:54 | NUR ---
PATIENT COMPLETED BLOOD TRANSFUSION NO REACTION NOTED,TOLERATED TRANSFUSION.
--- NOTE | 2020-02-25 18:23 | NUR ---
MS RN NOTE ALL NEEDS ATTENDED ,NOT IN DISTRESS. WILL CONT TO MONITOR CLOSELY
--- NOTE | 2020-02-25 19:50 | NUR ---
MS OPENING RN NOTE, PATIENT IN BED, NONVERBAL, WITH EYES SEMI-OPEN, ON 3L NC, BREATHING EVEN AND UNLABORED, NO SOB/ACUTE DISTRESS NOTED, GT IN PLACED, FEEDING ORDERED INFUSING, AND PATIENT TOLERATED TOLERATED WELL , HOB ELEVATED AT ALL TIME, WITH PICC LINE IN PLACE AND RECTAL FLEXISEALTUBE IN PLACE, NO LIQUID STOOL NOTED, S/P BLOOD TRANSFUSION TODAY, ALL NEEDS PROVIDED, BED LOCKED AND LOW POSITION, 2 1/2 S/R OF BED UP, WILL CONTINUE TO MONITOR CLOSELY.
[2020-02-25] MEDS: ATORVASTATIN 40 MG TABLET GT SCH (21:15)
[2020-02-25] MEDS: VANCOMYCIN 0.75 GM in IV D5W 250 ML IV SCH (22:08)
[2020-02-26] MEDS: BLOOD SUGAR DIAGNOSTIC 1 EACH STRIP IN SCH ×4 (00:34→18:32)
[2020-02-26] MEDS: INSULIN REGULAR, HUMAN 100 UNIT/ML 3 ML VIAL SQ PRN ×4 (00:35→18:53)
[2020-02-26 04:00] VITALS: BP 113/65
[2020-02-26] MEDS: METOCLOPRAMIDE HCL 10 MG TABLET GT SCH ×3 (04:01→20:34)
[2020-02-26 04:28] LABS: BASOPHILS % (AUTO) 0.2 % (0.0-2.0); EOSINOPHILS % (AUTO) 8.1 % (0.0-6.0); HEMATOCRIT 25 % (39-51); HEMOGLOBIN 7.9 g/dL (13.5-17.5); LYMPHOCYTES # (AUTO) 0.9 /CMM (0.8-4.8); LYMPHOCYTES % (AUTO) 8.9 % (20.0-44.0); MEAN CORPUSCULAR HGB CONC 31 g/dl (31.0-36.0); MEAN CORPUSCULAR VOLUME 95 fL (80-96); MONOCYTES # (AUTO) 0.8 /CMM (0.1-1.30); MONOCYTES % (AUTO) 7.8 % (2.0-12.0); NEUTROPHILS # (AUTO) 7.9 /CMM (1.8-8.9); PLATELET COUNT (AUTO) 287 /CMM (150-450); RED BLOOD CELL COUNT(AUTO) 2.64 MIL/uL (4.5-6.0); WHITE BLOOD COUNT (AUTO) 10.5 K/uL (4.3-11.0)
[2020-02-26] MEDS: GLUCERNA 1.2 1,000 ML BOTTLE GT PRN ×2 (04:30→21:22)
[2020-02-26 04:47] LABS: BILIRUBIN,TOTAL 0.4 mg/dL (0.2-1.0); CALCIUM, SERUM 8.6 mg/dL (8.5-10.1); CREATININE 0.7 mg/dL (0.6-1.3); MAGNESIUM 2.2 mg/dL (1.8-2.4); PHOSPHORUS 2.6 mg/dL (2.5-4.9); POTASSIUM 4.2 mmol/L (3.5-5.1); TOTAL PROTEIN, SERUM 4.7 g/dL (6.4-8.2)
[2020-02-26 05:12] LABS: ALBUMIN 0.8 g/dL (3.4-5.0)
--- NOTE | 2020-02-26 06:46 | NUR ---
RN CLOSING NOTE PATIENT IN BED AND APPEARS RESTING COMFORTABLY, REMAINS IN STABLE CONDITION. PATIENT IN NO ACUTE DISTRESS. NO SOB NOTED, PT BREATHING IS EVEN AND UNLABORED. PATIENT IS CLEAN , DRY AND COMFORTABLE THROUGHOUT THE SHIFT. NEEDS AND CONCERNS ADDRESSED. SAFETY MEASURES IMPLEMENTED PER PROTOCOL. PATIENT'S BED IS LOCKED AND IN LOWEST POSITION. SIDE RAILS UP. CALL LIGHT WITHIN REACH OF THE PATIENT. WILL ENDORSE TO MORNING SHIFT FOR CONTINUATION OF CARE.
--- NOTE | 2020-02-26 07:20 | NUR ---
MS RN NOTES RECEIVED PT IN BED, ASLEEP, APPEARS COMFORTABLE. ON DROPLET ISOLATION FOR COVID. PT ON SUPPLEMENTARY OXYGEN AT 3L VIA NC WITH NO ACUTE RESPIRATORY DISTRESS NOTED. PT NOT EXHIBITING ANY PAIN OR DISCOMFORT AT THIS TIME. QUIRINO PICC LINE TRIPLE LUMEN NOTED, FLUSHED WITH NS, INTACT AND OPERATIONAL. ON GOING GTF GLUCERNA 1.2 AT 60ML/HR, INTACT AND NO RESIDUALS PRESENT. FC IN PLACE WITH YELLOW URINE IN THE BAG PRESENT. PT KEPT COMFORTABLE. CALL LIGHT KEPT WITHIN REACH. PT'S BED IN LOWEST, LOCKED POSITION WITH SR X3. WILL CONTINUE PLAN OF CARE.
[2020-02-26 08:00] VITALS: BP 126/83
[2020-02-26] MEDS: SUCRALFATE 1 G/10 ML UDC GT SCH ×2 (08:01→18:22)
[2020-02-26] MEDS: PANTOPRAZOLE 40 MG VIAL IV SCH (08:01)
[2020-02-26] MEDS: AMIODARONE HCL 200 MG TABLET PO SCH ×2 (08:02→18:17)
[2020-02-26] MEDS: ACETAMINOPHEN 650 MG/20.3 ML UDC GT SCH ×2 (08:02→18:16)
[2020-02-26] MEDS: ZINC SULFATE 220 MG CAPSULE GT SCH (08:03)
[2020-02-26] MEDS: BACLOFEN (10 MG) 10 MG TABLET GT SCH ×2 (08:03→18:16)
[2020-02-26] MEDS: LINAGLIPTIN 5 MG TABLET PO SCH (08:03)
[2020-02-26] MEDS: METOPROLOL TARTRATE 25 MG TABLET GT SCH ×2 (08:03→17:00)
[2020-02-26] MEDS: FLUCONAZOLE (100 MG) 100 MG TABLET PO SCH (08:03)
[2020-02-26] MEDS: APIXABAN 5 MG TABLET PO SCH ×2 (08:05→18:19)
[2020-02-26] MEDS: MEROPENEM 1 G in IV NS 0.9% 100 ML IV SCH ×2 (08:11→20:34)
[2020-02-26] MEDS: PROSOURCE / PROSTAT (PYXIS) 30 ML UDC GT SCH ×3 (09:18→18:17)
[2020-02-26] MEDS: CLOTRIMAZOLE 1% 15 GM TUBE TP SCH ×4 (09:19→18:23)
[2020-02-26] MEDS: DAKINS QUARTER STRENGTH (0.125%) 480 ML BOTTLE TOP SCH (09:19)
[2020-02-26] MEDS: Z GUARD REMEDY 2 OZ OINT TP SCH (09:20)
--- NOTE | 2020-02-26 09:55 | NUR ---
RN NOTES ENDORSED TO SARAH/RUSLAN FOR BATOOL.
--- NOTE | 2020-02-26 10:00 | NUR ---
RN OPENING NOTE RECEIVED PT IN BED, SLEEPING.PT IS NON VERBAL, THERE IS NO S/S OF DISTRESS. PT ON OXYGEN AT 3L VIA NC SATING 100%. PT NOT EXHIBITING ANY PAIN OR DISCOMFORT AT THIS TIME. QUIRINO PICC LINE DOUBLE LUMEN NOTED, FLUSHES WELL AND DRESSING INTACT. GTF GLUCERNA 1.2 AT 60ML/HR IS RUNNING , NO RESIDUALS NOTED. PT HAS FC AND RECTAL TUBING. SAFETY MEASURES IN PLACE CALL LIGHT WITHIN REACH, PT'S BED IN LOWEST, LOCKED POSITION WITH SR X3. WILL CONTINUE TO MONITOR.
[2020-02-26 12:00] VITALS: BP 121/96
--- NOTE | 2020-02-26 13:00 | NUR ---
RN NOTE PT CHART CHECKED AND WOUND DEBRIDEMENT CONSENT IS IN CHART.
[2020-02-26 16:00] VITALS: BP 110/63
--- NOTE | 2020-02-26 17:30 | NUR ---
RN NOTE METOPROLOL IS NOT ADMINISTERED D/T LOW BP 103/56.
--- NOTE | 2020-02-26 17:35 | NUR ---
RN NOTE LANTUS IS NOT ADMINISTERED BECAUSE IT IS NOT AVAILABLE. PHARMACY MADE AWARE.
--- NOTE | 2020-02-26 18:00 | NUR ---
RN CLOSING NOTE PT SLEEPING IN THE BED. PT REMAINS IN STABLE CONDITION .NO ACUTE CHANGES DURING MY SHIFT, NO RESPIRATORY DISTRESS NOTED, PT HAS UNLABORED BREATHING ON 2 L NC SATING 99%. SAFETY MEASURES IN PLACE BED ATB LOWEST POSITION, LOCKED, SIDE RAILS x2 UP, CALL LIGHT IN REACH, WILL ENDORSE TO CYBER FORENSIC SPECIALIST FOR CONTINUITY OF CARE.
[2020-02-26] MEDS: DOCUSATE SODIUM LIQ 100 MG/10 ML UDC GT SCH (18:16)
[2020-02-26] MEDS: ASCORBIC ACID 500 MG TABLET GT SCH (18:17)
[2020-02-26] MEDS: INSULIN GLARGINE, 100 UNIT/ML CARTRIDGE SQ SCH (19:12)
--- NOTE | 2020-02-26 19:55 | NUR ---
RN OPENING NOTE RECEIVED PT IN BED AND APPEARS RESTING COMFORTABLY. PATIENT IS NONVERBAL, IN NO ACUTE DISTRESS AND NO SOB NOTED. PATIENT'S BREATHING IS EVEN AND UNLABORED. PATIENT IS ON 3 L OF OXYGEN VIA NC; TOLERATING WELL. PATIENT HAS A 3 LUMEN MIDLINE AT QUIRINO, PATENT, FLUSHED WELL. DONIS CATH CONNECTED TO URINE BAG INTACT AND DRAINING TO A CLEAR YELLOW URINE. RECTAL TUBING INTACT, MINIMAL OUTPUT NOTED. SAFETY MEASURES IMPLEMENTED PER [facility]. PATIENT BED ALARM IS ON. HEAD OF BED ELEVATED. BED IS LOCKED, IN LOWEST POSITION AND SIDE RAILS UP. CALL LIGHT WITHIN REACH OF THE PATIENT. WILL CONTINUE TO MONITOR FOR BATOOL.
[2020-02-26 20:00] VITALS: BP 89/46
[2020-02-26] MEDS: VANCOMYCIN 0.75 GM in IV D5W 250 ML IV SCH (20:34)
[2020-02-26] MEDS: ATORVASTATIN 40 MG TABLET GT SCH (21:07)
--- NOTE | 2020-02-27 | NUR ---
ENDORSED PATIENT TO JAREN RN FOR CONTINUATION OF CARE
[2020-02-27] MEDS: BLOOD SUGAR DIAGNOSTIC 1 EACH STRIP IN SCH ×4 (00:06→17:37)
[2020-02-27] MEDS: INSULIN REGULAR, HUMAN 100 UNIT/ML 3 ML VIAL SQ PRN ×3 (00:09→12:10)
--- NOTE | 2020-02-27 02:06 | NUR ---
MS RN: RECEIVED PATIENT Patient in bed, eyes open, non communicative. On supplemental Oxygen. Scrotal and penile swelling, Reyes cath was dislodged per SARAH Sahni. Gtube stoma site leaking. QUIRINO midline intact. Fall, skin precaution. Contact, Droplet isolation with Face shield maintained.
[2020-02-27 05:07] VITALS: BP 133/56
[2020-02-27] MEDS: METOCLOPRAMIDE HCL 10 MG TABLET GT SCH ×3 (05:18→20:25)
--- NOTE | 2020-02-27 06:48 | NUR ---
MS RN: END OF SHIFT REPORT Patient in bed, continue on supplemental oxygen at 3L NC. Tolerating tube feeding at 60ml/hr, maintained upright posture. Dressing changed to multiple wounds this shift, turned and repositioned every 2hr. Rectal tube in place with liquid stool, pouch changed. Reyes to gravity bag. QUIRINO PICC line intact, IV antibiotic as scheduled, afebrile overnight. Contact, Droplet isolation with Face shield. Maintained fall, skin, aspiration precaution. Will endorse to oncoming RN for continuity of care.
--- NOTE | 2020-02-27 07:32 | NUR ---
RN OPENING NOTES RECEIVED PATIENT RESTING IN BED COMFORTABLY. PT IS OBTUNDED, NON-VERBAL, AND BED BOUND. HE IS ON 3L OF OXYGEN VIA NC, TOLERATING WELL, NO SOB OR RESP DISTRESS. DONIS CATH AND RECTAL TUBE ARE INTACT AND PATENT. MULTIPLE WOUNDS PRESENT THROUGHOUT THE BODY, WILL ADDRESS PER WOUND CARE PLAN. GTUBE IS PATENT AND INTACT, INFUSIGN GLUCERNA AT 60 ML/HR. QUIRINO PICC IS PATENT AND INTACT. CONTACT AND DROPLET ISO HAVE BEEN IMPLEMENTED AND ENFORCED FOR COVID 19. SAFETY MEASURES HAVE BEEN IMPLEMENTED, CALL LIGHT IS WITHIN REACH, BED IS IN LOWEST AND LOCKED POSITION, SIDE RAILS UP X2, WILL CONTINUE TO MONITOR FOR ANY CHANGES.
[2020-02-27 07:35] LABS: CREATININE 0.8 mg/dL (0.6-1.3); POTASSIUM 4.2 mmol/L (3.5-5.1)
[2020-02-27 08:00] VITALS: BP 125/55
[2020-02-27] MEDS: LINAGLIPTIN 5 MG TABLET PO SCH (08:17)
[2020-02-27] MEDS: FLUCONAZOLE (100 MG) 100 MG TABLET PO SCH (08:17)
[2020-02-27] MEDS: BACLOFEN (10 MG) 10 MG TABLET GT SCH ×2 (08:17→17:02)
[2020-02-27] MEDS: ZINC SULFATE 220 MG CAPSULE GT SCH (08:17)
[2020-02-27] MEDS: SUCRALFATE 1 G/10 ML UDC GT SCH ×2 (08:17→17:01)
[2020-02-27] MEDS: PANTOPRAZOLE 40 MG VIAL IV SCH (08:17)
[2020-02-27] MEDS: METOPROLOL TARTRATE 25 MG TABLET GT SCH ×2 (08:18→17:00)
[2020-02-27] MEDS: AMIODARONE HCL 200 MG TABLET PO SCH ×2 (08:18→20:48)
[2020-02-27] MEDS: Z GUARD REMEDY 2 OZ OINT TP SCH (08:19)
[2020-02-27] MEDS: DAKINS QUARTER STRENGTH (0.125%) 480 ML BOTTLE TOP SCH (08:19)
[2020-02-27] MEDS: CLOTRIMAZOLE 1% 15 GM TUBE TP SCH ×3 (08:19→17:03)
[2020-02-27] MEDS: MEROPENEM 1 G in IV NS 0.9% 100 ML IV SCH ×2 (08:20→20:25)
[2020-02-27] MEDS: PROSOURCE / PROSTAT (PYXIS) 30 ML UDC GT SCH ×2 (08:20→10:43)
[2020-02-27] MEDS: APIXABAN 5 MG TABLET PO SCH ×2 (08:22→17:02)
[2020-02-27] MEDS: IV D5W 1,000 ML IV PRN ×2 (08:32→17:51)
[2020-02-27 16:00] VITALS: BP 103/52
[2020-02-27] MEDS: DOCUSATE SODIUM LIQ 100 MG/10 ML UDC GT SCH (17:03)
[2020-02-27] MEDS: ASCORBIC ACID 500 MG TABLET GT SCH (17:05)
[2020-02-27] MEDS: INSULIN GLARGINE, 100 UNIT/ML CARTRIDGE SQ SCH (17:33)
--- NOTE | 2020-02-27 17:38 | NUR ---
RN NOTES UNABLE TO COMPLETE REPEAT COVID 19 SWAB. PT IS CONFUSED AND IS UNABLE TO FOLLOW COMMANDS
[2020-02-27] MEDS: GLUCERNA 1.2 1,000 ML BOTTLE GT PRN (17:51)
--- NOTE | 2020-02-27 18:31 | NUR ---
RN NOTES REPEAT COVID SWAB HAS BEEN SENT, RESULTS PENDING
--- NOTE | 2020-02-27 19:02 | NUR ---
RN CLOSING NOTES PATIENT IS RESTING COMFORTABLY IN BED AT THIS TIME. PT IS ON 3L OF OXYGEN VIA NC, TOLERATING WELL, NO SOB OR RESP DISTRESS. WOUND CARE RENDERED ORDERED. REPEAT COVID SWAB HAS BEEN SENT AND IS PENDING. CONTACT AND DROPLET ISO HAVE BEEN IMPLEMENTED AND ENFORCED. PT NEEDS HAVE BEEN MET, VITAL SIGNS ARE STABLE, NO ACUTE CHANGES OCCURRED THROUGHOUT THE SHIFT. SAFETY MEASURES HAVE BEEN IMPLEMENTED, CALL LIGHT IS WITHIN REACH, BED IS IN LOWEST AND LOCKED POSITION, SIDE RAILS UP X2, PT WILL BE ENDORSED TO NIGHTSHIFT RN FOR BATOOL.
--- NOTE | 2020-02-27 19:15 | NUR ---
RN OPENING NOTES RECEIVED PATIENT RESTING IN BED COMFORTABLY. PT IS OBTUNDED, NON-VERBAL, AND BED BOUND. HE IS ON 3L OF OXYGEN VIA NC, TOLERATING WELL, NO SOB OR RESP DISTRESS. DONIS CATH AND RECTAL TUBE ARE INTACT AND PATENT. MULTIPLE WOUNDS PRESENT THROUGHOUT THE BODY, WILL ADDRESS PER WOUND CARE PLAN. GTUBE IS PATENT AND INTACT, INFUSING GLUCERNA AT 60 ML/HR. QUIRINO PICC IS PATENT AND INTACT. SAFETY MEASURES HAVE BEEN PROVIDED AND IMPLEMENTED. PATIENT BED ALARM IS ON. HEAD OF BED ELEVATED. BED IS LOCKED, IN LOWEST POSITION AND SIDE RAILS UP. CALL LIGHT WITHIN REACH OF THE PATIENT. ISOLATION PRECAUTIONS IN PLACE. WILL CONTINUE TO MONITOR AND REASSESS FOR ANY CHANGES.
[2020-02-27 20:00] VITALS: BP 111/53
[2020-02-27] MEDS: VANCOMYCIN 0.75 GM in IV D5W 250 ML IV SCH (20:25)
--- NOTE | 2020-02-27 20:41 | NUR ---
2040 DR INIGUEZ WAS NOTIFIED OF PRELIMINARY BLOOD CULTURE RESULT GRAM POSITIVE COCCI IN [facility], NO NEW ORDER MADE BUT HE SAID TO NOTIFY ID TEAM.
[2020-02-27] MEDS: ATORVASTATIN 40 MG TABLET GT SCH (21:16)
[2020-02-28] MEDS: BLOOD SUGAR DIAGNOSTIC 1 EACH STRIP IN SCH ×4 (00:44→18:10)
[2020-02-28] MEDS: INSULIN REGULAR, HUMAN 100 UNIT/ML 3 ML VIAL SQ PRN ×3 (00:49→12:48)
[2020-02-28 04:00] VITALS: BP 146/57
[2020-02-28] MEDS: METOCLOPRAMIDE HCL 10 MG TABLET GT SCH ×3 (04:33→20:22)
[2020-02-28] MEDS: IV D5W 1,000 ML IV PRN ×2 (05:37→18:23)
--- NOTE | 2020-02-28 06:32 | NUR ---
RN CLOSING NOTE: PATIENT REMAINS IN ROOM. NO SIGNS OF RESPIRATORY. SAFETY PRECAUTIONS IN PLACE WITH BED IN LOWEST POSITION, CALL LIGHT WITHIN REACH, BREAKS ON, SIDE RAILS UP. ALL NEEDS ATTENDED TO, PATIENT KEPT CLEAN AND DRY. WILL ENDORSE TO ONCOMING SHIFT ABOUT BATOOL.
[2020-02-28 07:10] LABS: CALCIUM, SERUM 8.7 mg/dL (8.5-10.1); CREATININE 0.7 mg/dL (0.6-1.3); POTASSIUM 4.3 mmol/L (3.5-5.1)
[2020-02-28 08:00] VITALS: BP 111/54
--- NOTE | 2020-02-28 08:00 | NUR ---
KYE RN OPENING NOTES RECEIVED PT IN BED COMFORTABLE.ALERT AND ORIENTED X0.GT PT IS ON nc 3L. TUBE FEEDING.LEFT UPPER ARM PICC LINE IS WELL FLUSHED AND INTACT. BED IN LOWEST POSITION. CALL LIGHT WITHIN REACH. SAFETY MEASUREMENTS ARE IMPLEMENTED. RAILS UP X2. WILL CONTINUE TO MONITOR.
[2020-02-28] MEDS: AMIODARONE HCL 200 MG TABLET PO SCH ×2 (08:47→20:22)
[2020-02-28] MEDS: FLUCONAZOLE (100 MG) 100 MG TABLET PO SCH (08:47)
[2020-02-28] MEDS: BACLOFEN (10 MG) 10 MG TABLET GT SCH ×2 (08:48→17:06)
[2020-02-28] MEDS: APIXABAN 5 MG TABLET PO SCH ×2 (08:49→17:11)
[2020-02-28] MEDS: ZINC SULFATE 220 MG CAPSULE GT SCH (09:00)
[2020-02-28] MEDS: CLOTRIMAZOLE 1% 15 GM TUBE TP SCH ×2 (09:00→16:52)
[2020-02-28] MEDS: PROSOURCE / PROSTAT (PYXIS) 30 ML UDC GT SCH (09:17)
[2020-02-28] MEDS: MEROPENEM 1 G in IV NS 0.9% 100 ML IV SCH ×2 (09:23→20:23)
[2020-02-28] MEDS: PANTOPRAZOLE 40 MG VIAL IV SCH (09:23)
[2020-02-28] MEDS: LINAGLIPTIN 5 MG TABLET PO SCH (09:24)
[2020-02-28] MEDS: ACETAMINOPHEN 650 MG/20.3 ML UDC GT SCH (09:24)
[2020-02-28] MEDS: METOPROLOL TARTRATE 25 MG TABLET GT SCH ×2 (09:26→17:00)
[2020-02-28] MEDS: SUCRALFATE 1 G/10 ML UDC GT SCH ×2 (09:29→17:04)
[2020-02-28] MEDS: Z GUARD REMEDY 2 OZ OINT TP SCH (10:20)
[2020-02-28] MEDS: DAKINS QUARTER STRENGTH (0.125%) 480 ML BOTTLE TOP SCH (10:58)
[2020-02-28 12:00] VITALS: BP 115/59
[2020-02-28] MEDS: GLUCERNA 1.2 1,000 ML BOTTLE GT PRN (13:55)
[2020-02-28 16:00] VITALS: BP_SYST 96; BP_DIAS 41; BP_DIAS 51
[2020-02-28] MEDS: INSULIN GLARGINE, 100 UNIT/ML CARTRIDGE SQ SCH (17:00)
[2020-02-28] MEDS: ASCORBIC ACID 500 MG TABLET GT SCH (17:04)
[2020-02-28] MEDS: DOCUSATE SODIUM LIQ 100 MG/10 ML UDC GT SCH (17:04)
--- NOTE | 2020-02-28 17:17 | NUR ---
KYE RN NOTES NOT ADMITTED METOPROLOL PT BP 96/[address] EZRA SUE
--- NOTE | 2020-02-28 18:17 | NUR ---
KYE RN CLOSING NOTES PT IN BED COMFORTABLE.ALERT AND ORIENTED X0.GT PT IS ON N/C 3 L. TUBE FEEDING.LEFT UPPER PICC LINE IS WELL FLUSHED AND INTACT. BED IN LOWEST POSITION. CALL LIGHT WITHIN REACH. SAFETY MEASUREMENTS ARE IMPLEMENTED. RAILS UP X2. WILL ENDORSE TO POWERHOUSE HELPER FOR BATOOL
--- NOTE | 2020-02-28 18:40 | NUR ---
KYE RN CLOSING NOTES RECEIVED PT IN BED COMFORTABLE.ALERT AND ORIENTED X0.GT PT IS ON N/C 3 L. GT TUBE FEEDING. PT IS ON GLUCERNA 1.2 AT 60 ML/HR..LEFT AC IS WELL FLUSHED AND INTACT DS5W 1000 ML. BED IN LOWEST POSITION. CALL LIGHT WITHIN REACH. SAFETY MEASUREMENTS ARE IMPLEMENTED. RAILS UP X2. WILL ENDORSED TO NIGHTSHIFT FOR BATOOL.
--- NOTE | 2020-02-28 19:30 | NUR ---
RN OPENING NOTE RECEIVED PT IN BED A/O X0. PT IS ON N/C 3 L/MIN. ON GT TUBE FEEDING RUNNING AT 60ML/HR. LT AC PATENT, PICC TO QUIRINO PATENT, INTACT AND FLUSHING WELL. ON D5W INFUSING AT 100 ML/HR. DONIS CATH DRAINING URINE BY GRAVITY, BED LOCKED AND IN LOWEST POSITION. CALL LIGHT WITHIN REACH. SAFETY MEASURES IN PLACE, RAILS UP X2 WILL CONT. TO MONITOR PT
[2020-02-28 20:00] VITALS: BP 114/53
[2020-02-28] MEDS: VANCOMYCIN 0.75 GM in IV D5W 250 ML IV SCH (21:02)
[2020-02-28] MEDS: ATORVASTATIN 40 MG TABLET GT SCH (21:05)
[2020-02-29] MEDS: BLOOD SUGAR DIAGNOSTIC 1 EACH STRIP IN SCH ×5 (00:11→23:20)
[2020-02-29] MEDS: INSULIN REGULAR, HUMAN 100 UNIT/ML 3 ML VIAL SQ PRN ×4 (00:30→23:22)
[2020-02-29 04:00] VITALS: BP 125/80
[2020-02-29] MEDS: METOCLOPRAMIDE HCL 10 MG TABLET GT SCH ×3 (05:14→20:59)
[2020-02-29 06:34] LABS: CARBON DIOXIDE 28 mmol/L (21-32); CHLORIDE 111 mmol/L (98-107); CREATININE 0.5 mg/dL (0.6-1.3); GLUCOSE 189 mg/dL (74-106); POTASSIUM 4.5 mmol/L (3.5-5.1); SODIUM SERUM 142 mmol/L (136-145); UREA NITROGEN, BLOOD 30 mg/dL (7-18)
--- NOTE | 2020-02-29 06:45 | NUR ---
RN CLOSING NOTE PT IN BED A/O X0. PT IS ON N/C 3 L/MIN. ON GT TUBE FEEDING RUNNING AT 60ML/HR. LT AC PATENT, PICC TO QUIRINO PATENT, INTACT AND FLUSHING WELL. ON D5W INFUSING AT 100 ML/HR. DONIS CATH DRAINING URINE BY GRAVITY, WITH FLEXI SEAL IN PLACE, BED LOCKED AND IN LOWEST POSITION. CALL LIGHT WITHIN REACH. SAFETY MEASURES IN PLACE, SIDE RAILS UP X2, ENDORSED TO AM RN FOR BATOOL
--- NOTE | 2020-02-29 07:00 | NUR ---
RN MS1 A/O XO PATIENT OPENS EYES, PATIENT HAS DIAPER WITH FLEXISEAL AN DONIS DRAINING YELLOW CLEAR DRIANAGE. PATIENT HAS LEFT AKA, SARCUM, BL HIPS AND SCROTUM WOUNDS. PATIENT HAS GTUBE WITH GLUCERNA 1.2 @ 60 ML/ HR . QUIRINO PICC LINE CLEAR AND DRY NO SIGNS OF INFILTRATION OR INFECTION. BED LOCKED LOWEST POSITION CALL LIGHT WITH IN REACH ALL SAFETY MEASURE IMPLEMENTED PER HOSPITAL.
[2020-02-29 08:00] VITALS: BP 139/70
[2020-02-29] MEDS: ACETAMINOPHEN 650 MG/20.3 ML UDC GT SCH (08:58)
[2020-02-29] MEDS: SUCRALFATE 1 G/10 ML UDC GT SCH ×2 (08:58→17:55)
[2020-02-29] MEDS: PANTOPRAZOLE 40 MG VIAL IV SCH (08:58)
[2020-02-29] MEDS: LINAGLIPTIN 5 MG TABLET PO SCH (09:08)
[2020-02-29] MEDS: FLUCONAZOLE (100 MG) 100 MG TABLET PO SCH (09:08)
[2020-02-29] MEDS: AMIODARONE HCL 200 MG TABLET PO SCH ×2 (09:08→21:04)
[2020-02-29] MEDS: PROSOURCE / PROSTAT (PYXIS) 30 ML UDC GT SCH (09:09)
[2020-02-29] MEDS: METOPROLOL TARTRATE 25 MG TABLET GT SCH ×2 (09:09→17:00)
[2020-02-29] MEDS: BACLOFEN (10 MG) 10 MG TABLET GT SCH ×2 (09:10→17:55)
[2020-02-29] MEDS: ZINC SULFATE 220 MG CAPSULE GT SCH (09:10)
[2020-02-29] MEDS: APIXABAN 5 MG TABLET PO SCH ×2 (09:11→17:56)
[2020-02-29] MEDS: DAKINS QUARTER STRENGTH (0.125%) 480 ML BOTTLE TOP SCH (09:12)
[2020-02-29] MEDS: MEROPENEM 1 G in IV NS 0.9% 100 ML IV SCH ×2 (09:12→20:42)
[2020-02-29] MEDS: CLOTRIMAZOLE 1% 15 GM TUBE TP SCH ×2 (09:12→17:57)
[2020-02-29] MEDS: Z GUARD REMEDY 2 OZ OINT TP SCH (09:13)
[2020-02-29 12:00] VITALS: BP 101/54
--- NOTE | 2020-02-29 13:06 | NUR ---
clarified with lab result on per suda from lab the result on 02/23 is really positive and the result on 02/26 is negative. made aware.
[2020-02-29 16:00] VITALS: BP 90/44
[2020-02-29] MEDS: GLUCERNA 1.2 1,000 ML BOTTLE GT PRN (17:52)
[2020-02-29] MEDS: DOCUSATE SODIUM LIQ 100 MG/10 ML UDC GT SCH (17:55)
[2020-02-29] MEDS: ASCORBIC ACID 500 MG TABLET GT SCH (17:55)
[2020-02-29] MEDS: INSULIN GLARGINE, 100 UNIT/ML CARTRIDGE SQ SCH (18:09)
--- NOTE | 2020-02-29 18:30 | NUR ---
RN MS1 - CLOSING NO SIGNIFICANT CHANGE ON PATIENT CONDITION PATIENTVITALS REMAINS STABLE, NOSOB, NO PAIN , NO ACUTE RESPIRATORY DISTRESS. BED LOCKED LOWEST POSITION CALL LIGHT WITH IN REACH ALL SAFETY MEASURE IMPLEMENTED PER HOSPITAL POLICY. PATIENT TURN Q2H. WILL ENDORSE TO ON COMING NURSE
--- NOTE | 2020-02-29 19:30 | NUR ---
MS RN RECEIVE PT IN BED OPENS EYES TO VERBAL STIMULATION, NOT IN DISTRESS, STABLE. SAFETY MEASURES AT ALL TIMES. WILL CONT TO MONITOR.
[2020-02-29 20:00] VITALS: BP 99/54
[2020-02-29] MEDS: ATORVASTATIN 40 MG TABLET GT SCH (21:00)
[2020-02-29] MEDS: VANCOMYCIN 0.75 GM in IV D5W 250 ML IV SCH (21:34)
[2020-03-01 04:00] VITALS: BP 129/54
[2020-03-01] MEDS: METOCLOPRAMIDE HCL 10 MG TABLET GT SCH ×3 (05:03→21:27)
[2020-03-01] MEDS: BLOOD SUGAR DIAGNOSTIC 1 EACH STRIP IN SCH ×3 (05:19→18:27)
[2020-03-01] MEDS: INSULIN REGULAR, HUMAN 100 UNIT/ML 3 ML VIAL SQ PRN ×3 (05:20→18:28)
--- NOTE | 2020-03-01 05:57 | NUR ---
RN CLOSING NOTE PT ASLEEP OPENS EYES TO VERBAL STIMULI, STABLE AND NOT IN DISTRESS ON 3LPM VIA NC. TOLERATED GT TUBE FEEDING INFUSING 60ML/HR. FLEXI SEAL IN PLACE, AM CARE RENDERED, REPOSITION EVERY 2 HOURS. DONIS CATH DRAINING URINE BY GRAVITY GOOD F/C CARE PROVIDED. KEPT CLEAN, DRY AND COMFORTABLE AT ALL TIMES. SAFETY MEASURES AT ALL TIMES. WILL ENDORSE NEXT SHIFT POC.
[2020-03-01 07:03] LABS: BASOPHILS % (AUTO) 0.1 % (0.0-2.0); EOSINOPHILS % (AUTO) 9.4 % (0.0-6.0); HEMATOCRIT 26 % (39-51); LYMPHOCYTES # (AUTO) 0.8 /CMM (0.8-4.8); LYMPHOCYTES % (AUTO) 9.4 % (20.0-44.0); MEAN CORPUSCULAR HGB CONC 31 g/dl (31.0-36.0); MEAN CORPUSCULAR VOLUME 95 fL (80-96); MONOCYTES # (AUTO) 0.4 /CMM (0.1-1.30); MONOCYTES % (AUTO) 4.2 % (2.0-12.0); NEUTROPHILS # (AUTO) 6.6 /CMM (1.8-8.9); NEUTROPHILS % (AUTO) 76.9 % (43.0-81.0); PLATELET COUNT (AUTO) 223 /CMM (150-450); RED BLOOD CELL COUNT(AUTO) 2.71 MIL/uL (4.5-6.0); WHITE BLOOD COUNT (AUTO) 8.6 K/uL (4.3-11.0)
[2020-03-01 07:30] LABS: BILIRUBIN,TOTAL 0.2 mg/dL (0.2-1.0); CALCIUM, SERUM 8.1 mg/dL (8.5-10.1); CREATININE 0.6 mg/dL (0.6-1.3); MAGNESIUM 1.9 mg/dL (1.8-2.4); PHOSPHORUS 2.9 mg/dL (2.5-4.9); POTASSIUM 4.5 mmol/L (3.5-5.1)
--- NOTE | 2020-03-01 07:30 | NUR ---
MS RN NOTES PATIENT IN BED A/OX1, OPENS EYES WHEN NAME CALLED. ON DROPLET ISOLATION FOR COVID. NO SOB OR DISCOMFORT NOTED AT THIS TIME. WILL CONTINUE TO MONITOR THE PATIENT.
[2020-03-01 07:34] LABS: ALBUMIN 0.6 g/dL (3.4-5.0)
[2020-03-01 08:00] VITALS: BP 119/63
--- NOTE | 2020-03-01 08:00 | NUR ---
MS RN NOTES RECEIVED A CRITICAL LAB FOR PATIENT (ALBUMIN 0.6) . INFORMED HOCKEY SCOUT BLANCA AND ORDER OF ALBUMIN OBTAINED.
[2020-03-01] MEDS: MEROPENEM 1 G in IV NS 0.9% 100 ML IV SCH ×2 (08:58→21:28)
[2020-03-01] MEDS: AMIODARONE HCL 200 MG TABLET PO SCH ×2 (09:00→21:30)
[2020-03-01] MEDS: SUCRALFATE 1 G/10 ML UDC GT SCH ×2 (09:01→16:39)
[2020-03-01] MEDS: PANTOPRAZOLE 40 MG VIAL IV SCH (09:01)
[2020-03-01] MEDS: METOPROLOL TARTRATE 25 MG TABLET GT SCH ×2 (09:01→17:03)
[2020-03-01] MEDS: ACETAMINOPHEN 650 MG/20.3 ML UDC GT SCH (09:02)
[2020-03-01] MEDS: APIXABAN 5 MG TABLET PO SCH ×2 (09:03→16:38)
[2020-03-01] MEDS: ZINC SULFATE 220 MG CAPSULE GT SCH (09:04)
[2020-03-01] MEDS: LINAGLIPTIN 5 MG TABLET PO SCH (09:04)
[2020-03-01] MEDS: FLUCONAZOLE (100 MG) 100 MG TABLET PO SCH (09:04)
[2020-03-01] MEDS: BACLOFEN (10 MG) 10 MG TABLET GT SCH ×2 (09:05→16:38)
[2020-03-01] MEDS: PROSOURCE / PROSTAT (PYXIS) 30 ML UDC GT SCH (09:06)
[2020-03-01] MEDS: CLOTRIMAZOLE 1% 15 GM TUBE TP SCH ×2 (09:09→17:03)
[2020-03-01] MEDS: DAKINS QUARTER STRENGTH (0.125%) 480 ML BOTTLE TOP SCH (09:09)
[2020-03-01] MEDS: Z GUARD REMEDY 2 OZ OINT TP SCH (09:10)
--- NOTE | 2020-03-01 11:18 | NUR ---
MS RN NOTES CALLED PHARMACY AND INFORMED THAT ALBUMIN IS NOT DELIVERED YET.
[2020-03-01 12:00] VITALS: BP 107/55
[2020-03-01] MEDS: ALBUMIN 25% 25 GM in PREMIX 1 EA IV SCH ×3 (12:03→22:39)
[2020-03-01 13:06] VITALS: BP 107/55
[2020-03-01 16:00] VITALS: BP 125/52
[2020-03-01] MEDS: GLUCERNA 1.2 1,000 ML BOTTLE GT PRN (16:30)
[2020-03-01] MEDS: ASCORBIC ACID 500 MG TABLET GT SCH (17:02)
[2020-03-01] MEDS: DOCUSATE SODIUM LIQ 100 MG/10 ML UDC GT SCH (17:02)
[2020-03-01] MEDS: INSULIN GLARGINE, 100 UNIT/ML CARTRIDGE SQ SCH (17:35)
--- NOTE | 2020-03-01 19:40 | NUR ---
RN OPENING NOTE RECEIVED PATIENT ALERT CONFUSED NON VERBAL, OPEN EYES WHEN GREETING BREATHING IS EVEN AND UNLABORED NO SOB NOT ACUTE DISTRESS NOTED, ON G-TUBE FEEDING AND IV ATB,PICC LINE ON LEFT UPPER ARM INTACT PATENT,CONTINUE TO MONITOR.
--- NOTE | 2020-03-01 19:40 | NUR ---
MS RN NOTES PATIENT IN BED, A/OX1 OPENS EYE WHEN NAME CALLED AND TOUCHED. ON ISOLATION FOR DROPLET. ALL NEEDS ATTENDED, MEDICATION ADMINISTRATED. NO SOB OR DISCOMFORT AT THIS TIME. CALL LIGHT WITHIN REACH. BED AT THE LOWEST POSITION LOCKED. REPORT GIVEN TO CAMPUS AMBASSADOR NURSE FOR BATOOL.
[2020-03-01 20:00] VITALS: BP 117/52
[2020-03-01] MEDS: VANCOMYCIN 0.75 GM in IV D5W 250 ML IV SCH (21:29)
[2020-03-01] MEDS: ATORVASTATIN 40 MG TABLET GT SCH (21:31)
[2020-03-01] MEDS: ACETAMINOPHEN 650 MG/20.3 ML UDC NG PRN (21:35)
[2020-03-02] VITALS (9 sets, daily range): BP systolic 83–129; BP diastolic 21–54
[2020-03-02] MEDS: INSULIN REGULAR, HUMAN 100 UNIT/ML 3 ML VIAL SQ PRN ×2 (00:03→05:37)
[2020-03-02] MEDS: BLOOD SUGAR DIAGNOSTIC 1 EACH STRIP IN SCH ×4 (00:48→18:58)
[2020-03-02] MEDS: ALBUMIN 25% 25 GM in PREMIX 1 EA IV SCH (04:29)
[2020-03-02] MEDS: METOCLOPRAMIDE HCL 10 MG TABLET GT SCH ×2 (05:04→14:52)
--- NOTE | 2020-03-02 05:39 | NUR ---
RN NOTE BLOOD SUGAR CHECKED IT IS 129 PER SLIDING SCALE INSULIN NOT GIVEN.
[2020-03-02 06:21] LABS: ALBUMIN 1.9 g/dL (3.4-5.0); BILIRUBIN,TOTAL 0.5 mg/dL (0.2-1.0); CALCIUM, SERUM 8.2 mg/dL (8.5-10.1); CREATININE 0.7 mg/dL (0.6-1.3); MAGNESIUM 2.2 mg/dL (1.8-2.4); PHOSPHORUS 2.7 mg/dL (2.5-4.9); TOTAL PROTEIN, SERUM 4.5 g/dL (6.4-8.2)
--- NOTE | 2020-03-02 06:35 | NUR ---
RN CLOSING NOTE RESIDENT REMAINS CONFUSED NONVERBAL BREATHING IS EVEN AND UNLABORED,ON OXYGEN 3L/HR VIA NASAL CANNULA,ALL DUE MEDS GIVEN MD ORDERED,VIA G-TUBE FEEDING,KEPT CLEAN AND DRY ALL THE TIME, ENDORSE COMING SHIFT FOR CONTINUATION OF CARE
--- NOTE | 2020-03-02 08:00 | NUR ---
RN OPENING NOTES RECEIVED PT. IN BED. NO ACUTE DISTRESS NOTED. PT. A&OX1, RESPONDS TO TOUCH. PT. ON 3L O2 VIA NC, SATURATING WELL AT 97%. BREATHING EVEN AND UNLABORED. PT. FLEXISEAL IN PLACE, PATENT, DRAINING TO GRAVITY. PT. FC IN PLACE, PATENT, DRAINING TO GRAVITY. PT. G-TUBE IN PLACE, INTACT, PATENT, FLUSHED WELL. PT. QUIRINO PICC INTACT, PATENT, FLUSHED WELL. PT. SAFETY MAINTAINED. CALL LIGHT WITHIN REACH. WILL CONTINUE TO MONITOR
[2020-03-02 08:47] LABS: BASOPHILS % (AUTO) 0.1 % (0.0-2.0); EOSINOPHILS % (AUTO) 5.8 % (0.0-6.0); HEMATOCRIT 21 % (39-51); LYMPHOCYTES # (AUTO) 0.8 /CMM (0.8-4.8); LYMPHOCYTES % (AUTO) 7.6 % (20.0-44.0); MEAN CORPUSCULAR HGB CONC 30 g/dl (31.0-36.0); MEAN CORPUSCULAR VOLUME 95 fL (80-96); MONOCYTES # (AUTO) 0.6 /CMM (0.1-1.30); NEUTROPHILS # (AUTO) 8.3 /CMM (1.8-8.9); NEUTROPHILS % (AUTO) 80.5 % (43.0-81.0); PLATELET COUNT (AUTO) 171 /CMM (150-450); RED BLOOD CELL COUNT(AUTO) 2.21 MIL/uL (4.5-6.0); WHITE BLOOD COUNT (AUTO) 10.3 K/uL (4.3-11.0)
[2020-03-02 08:51] LABS: HEMOGLOBIN 6.4 g/dL (13.5-17.5)
[2020-03-02] MEDS: METOPROLOL TARTRATE 25 MG TABLET GT SCH ×2 (09:00→17:00)
[2020-03-02] MEDS: AMIODARONE HCL 200 MG TABLET PO SCH (09:00)
--- NOTE | 2020-03-02 09:11 | NUR ---
Notified to re;hgb 6.4 hct 21 will give 1 units PRBC today when reacy
[2020-03-02 09:43] LABS: BAND % (MANUAL) 12 % (0.0-5.0); EOSINOPHILS % (MANUAL) 8 % (0-4); LYMPHOCYTES % (MANUAL) 11 % (16-48); METAMYELOCYTES % 1 % (0-0); MONOCYTES % (MANUAL) 2 % (0-11.0); NEUTROPHILS % (MANUAL) 66 (42-76)
[2020-03-02] MEDS: SUCRALFATE 1 G/10 ML UDC GT SCH ×2 (09:48→18:03)
[2020-03-02] MEDS: ACETAMINOPHEN 650 MG/20.3 ML UDC GT SCH (09:48)
[2020-03-02] MEDS: ZINC SULFATE 220 MG CAPSULE GT SCH (09:49)
[2020-03-02] MEDS: LINAGLIPTIN 5 MG TABLET PO SCH (09:49)
[2020-03-02] MEDS: BACLOFEN (10 MG) 10 MG TABLET GT SCH ×2 (09:49→18:03)
[2020-03-02] MEDS: FLUCONAZOLE (100 MG) 100 MG TABLET PO SCH (09:49)
[2020-03-02] MEDS: APIXABAN 5 MG TABLET PO SCH ×2 (09:51→18:01)
[2020-03-02] MEDS: PANTOPRAZOLE 40 MG VIAL IV SCH (09:52)
[2020-03-02] MEDS: MEROPENEM 1 G in IV NS 0.9% 100 ML IV SCH (10:12)
[2020-03-02] MEDS: PROSOURCE / PROSTAT (PYXIS) 30 ML UDC GT SCH (10:18)
[2020-03-02] MEDS: CLOTRIMAZOLE 1% 15 GM TUBE TP SCH ×2 (10:19→18:04)
[2020-03-02] MEDS: DAKINS QUARTER STRENGTH (0.125%) 480 ML BOTTLE TOP SCH (10:19)
[2020-03-02] MEDS: Z GUARD REMEDY 2 OZ OINT TP SCH (10:20)
--- NOTE | 2020-03-02 10:30 | NUR ---
RN NOTE UNABLE TO GET PT. TEMPERATURE VIA ORAL, AXILLARY, RECTAL ROUTES. BEAR HUGGER BLANKET ORDERED.
[2020-03-02] MEDS ORDERED: SILVER NITRATE APPLICATOR 1 EA BOX TP ONE (17:00)
[2020-03-02] MEDS: ASCORBIC ACID 500 MG TABLET GT SCH (18:00)
[2020-03-02] MEDS: DOCUSATE SODIUM LIQ 100 MG/10 ML UDC GT SCH (18:04)
[2020-03-02 18:46] LABS: HEMOGLOBIN 9.2 g/dL (13.5-17.5)
--- NOTE | 2020-03-02 19:00 | NUR ---
RN CLOSING NOTES PT. IN BED. NO ACUTE DISTRESS NOTED. PT. A&OX1, RESPONDS TO TOUCH. PT. ON 3L O2 VIA NC, SATURATING WELL AT 97%. BREATHING EVEN AND UNLABORED. PT. FLEXISEAL IN PLACE, PATENT, DRAINING TO GRAVITY. PT. FC IN PLACE, PATENT, DRAINING TO GRAVITY. PT. G-TUBE IN PLACE, INTACT, PATENT, FLUSHED WELL. PT. QUIRINO PICC INTACT, PATENT, FLUSHED WELL. PT. SAFETY MAINTAINED. CALL LIGHT WITHIN REACH. WILL ENDORSE PLAN OF CARE TO ONCOMING SHIFT
--- NOTE | 2020-03-02 19:15 | NUR ---
RN OPENING NOTES RECEIVED PATIENT IN BED. NO ACUTE DISTRESS NOTED. PT. A&OX1, RESPONDS TO TOUCH. PT. ON 3L O2 VIA NC, SATURATING WELL > 95%. BREATHING EVEN AND UNLABORED. PT QUIRINO PICC INTACT, PATENT, FLUSHED. WELL.PATIENT ON G-TUBE IN PLACE, INTACT, PATENT, FLUSHED WELL. PATIENT ON FC IN PLACE, PATENT, DRAINING TO GRAVITY. PATIENT. FLEXISEAL IN PLACE, PATENT, DRAINING TO GRAVITY. SAFETY MEASURES HAVE BEEN PROVIDED AND IMPLEMENTED. PATIENT BED ALARM IS ON. HEAD OF BED ELEVATED. BED IS LOCKED, IN LOWEST POSITION AND SIDE RAILS UP. CALL LIGHT WITHIN REACH OF THE PATIENT. APPROPRIATE PRECAUTION IN PLACE.
--- NOTE | 2020-03-02 19:30 | NUR ---
RN NOTES CALLED [facility] TO ENDORSE INFO FOR PATIENT'S DC. ALL PERTINENT INFO PROVIDED TO FABIAN ASHLEY. AMBULANCE CAME IN TO BRING PT TO [facility]. LIKEWISE ALL PERTINENT INFO ENDORSED. DISCHARGE PACKET PROVIDED WELL. PT WAS STABLE UPON DISCHARGE.
== END 2020-03-02 21:34 | DRG 871 ==
LOC: ER 11:59 → TELE-TD 13:53 → TELE1 14:15 → TELE-TD 02-08 08:31 → TELE1 02-09 20:11 → MEDSG1 02-18 13:35 → ICU 02-25 13:31 → MEDSG1 02-26 21:45
PROVIDERS: ADMIT Legal Medicine; ATTEND Legal Medicine
PROC: 05HY33Z Insertion of Infusion Device into Upper Vein, Percutaneous Approach (ICD-10-PCS; 2020-02-11)
PROC: 05HA33Z Insertion of Infusion Device into Left Brachial Vein, Percutaneous Approach (ICD-10-PCS; 2020-02-24)
PROC: 30233N1 Transfusion of Nonautologous Red Blood Cells into Peripheral Vein, Percutaneous Approach (ICD-10-PCS; principal; 2020-02-25)
DX: A41.89 Other specified sepsis (principal); U07.1 COVID-19; E43 Unspecified severe protein-calorie malnutrition; I21.A1 Myocardial infarction type 2; G92 Toxic encephalopathy; J12.89 Other viral pneumonia; N17.0 Acute kidney failure with tubular necrosis; J96.01 Acute respiratory failure with hypoxia; E87.0 Hyperosmolality and hypernatremia; Z68.1 Body mass index [BMI] 19.9 or less, adult; E87.2 Acidosis; N39.0 Urinary tract infection, site not specified; L03.116 Cellulitis of left lower limb; M86.9 Osteomyelitis, unspecified; E86.0 Dehydration; D63.8 Anemia in other chronic diseases classified elsewhere; E11.22 Type 2 diabetes mellitus with diabetic chronic kidney disease; E86.1 Hypovolemia; G30.9 Alzheimer's disease, unspecified; F02.80 Dementia in other diseases classified elsewhere, unspecified severity, without behavioral disturbance, psychotic disturbance, mood disturbance, and anxiety; Z66 Do not resuscitate; Z93.1 Gastrostomy status; I48.91 Unspecified atrial fibrillation; Z98.61 Coronary angioplasty status; R13.10 Dysphagia, unspecified; E11.51 Type 2 diabetes mellitus with diabetic peripheral angiopathy without gangrene; I12.9 Hypertensive chronic kidney disease with stage 1 through stage 4 chronic kidney disease, or unspecified chronic kidney disease; N18.9 Chronic kidney disease, unspecified; K57.90 Diverticulosis of intestine, part unspecified, without perforation or abscess without bleeding; N40.0 Benign prostatic hyperplasia without lower urinary tract symptoms; Z87.19 Personal history of other diseases of the digestive system; Z95.1 Presence of aortocoronary bypass graft; I25.10 Atherosclerotic heart disease of native coronary artery without angina pectoris; I25.2 Old myocardial infarction; Z89.612 Acquired absence of left leg above knee; E11.69 Type 2 diabetes mellitus with other specified complication; Z79.84 Long term (current) use of oral hypoglycemic drugs; Z79.899 Other long term (current) drug therapy; M19.90 Unspecified osteoarthritis, unspecified site; E86.9 Volume depletion, unspecified; L89.896 Pressure-induced deep tissue damage of other site; F09 Unspecified mental disorder due to known physiological condition; D53.9 Nutritional anemia, unspecified; L89.156 Pressure-induced deep tissue damage of sacral region; L89.326 Pressure-induced deep tissue damage of left buttock; L89.316 Pressure-induced deep tissue damage of right buttock; L98.9 Disorder of the skin and subcutaneous tissue, unspecified; L89.106 Pressure-induced deep tissue damage of unspecified part of back; L89.226 Pressure-induced deep tissue damage of left hip; L89.216 Pressure-induced deep tissue damage of right hip; S31.30XA Unspecified open wound of scrotum and testes, initial encounter; S81.002A Unspecified open wound, left knee, initial encounter; X58.XXXA Exposure to other specified factors, initial encounter; Y92.129 Unspecified place in nursing home as the place of occurrence of the external cause; E11.65 Type 2 diabetes mellitus with hyperglycemia
CPT/HCPCS: 36410; 36415; 36600; 71045-TC; 71250-TC; 74018; 80048-TC; 80053-TC; 80061-TC; 80202-TC; 81000-TC; 82248-TC; 82272-TC; 82550-TC; 82553; 82570-TC; 82728-TC; 82803-TC; 82945-TC; 82962-TC; 83540-TC; 83605-TC; 83615-TC; 83735-TC; 83880; 83935-TC; 84100-TC; 84155-TC; 84300-TC; 84439-TC; 84443-TC; 84484-TC; 84550-TC; 85025-TC; 85027-TC; 85378-TC; 85385-TC; 85730-TC; 86140-TC; 86850-TC; 86921-TC; 87040-TC; 87070-TC; 87081-TC; 87086-TC; 87186-TC; 93307-TC; A4216; A4217; A6253; A6403; A6407; C1751; C9113; G0378; J0282; J0692; J0696; J1650; J1815; J2185; J2930; J3370; J3490; J7030; J7040; J7042; J7050; J7060; J7070; J8597; P9016-BL; P9047; Q9963; U0003-CS